=== PATIENT | female | born 1965 | race Caucasian/White ===

== ENCOUNTER 2019-03-14 13:47 | Observation (INO) | payer MEDICAID, SELFPAY ==
[2019-01-10 10:58] VITALS: BMI 30.4
--- NOTE | 2019-03-13 23:49 | PCM.HP.BLA ---
History and Physical Date of Admission: 03/14/19 HISTORY OF PRESENT ILLNESS 53 year old woman presents for evaluation for hidradenitis. She states she mostly gets flare ups in her bilateral inguinal areas, recently worse on the right. She has had infected areas in her abdominal wall area as well as her left lateral cheek by cervicomandibular angle. When she gets a flare up, she develops increasing redness and pain and swelling and occasional drainage. At present she denies fever. She denies trauma. She presents at this time for further evaluation and treatment. PAST MEDICAL HISTORY Anemia Anxiety and depression Arthritis Back problem Breast lump in female Carpal tunnel syndrome Cataracts, bilateral Frequent headaches GERD (gastroesophageal reflux disease) Gallstones Hearing problem Heart disease High cholesterol Hypoglycemia IBS (irritable bowel syndrome) Neuropathy Osteoarthritis Pancreatitis Polycystic ovary High blood pressure PAST SURGICAL HISTORY Gastric bypass status for obesity cataract removal with insertion of prosthetic lens back surgery delivery laparoscopic cholecystectomy neck surgery shoulder surgery ALLERGIES duloxetine [From Cymbalta] Iodinated Contrast Media pregabalin [From Lyrica] MEDICATIONS alprazolam atorvastatin biotin bupropion HCl calcium carbonate cholecalciferol (vitamin D3) desvenlafaxine ER dexlansoprazole diclofenac 1 % topical gel doxycycline monohydrate hydrocodone prazosin quetiapine ranitidine tizanidine vitamin B complex FAMILY HISTORY Son - Alcoholism, Psychiatric care Mother - Anemia, Thyroid disorder, Suicide attempt, Anxiety, Arthritis, Cancer, Depression, Hypertension, High cholesterol, Skin cancer (melanoma), CVA (cerebral vascular accident) Sister - defect, Cancer, Hormone Problems, Kidney disease, Skin cancer (melanoma), Thyroid disorder Father - Cancer, Colon cancer SOCIAL HISTORY Smoking Status: Current every day smoker counseling given: provider counseling, counseling >10 minutes alcohol intake: never substance use type: does not use REVIEW OF SYSTEMS General - Denies fever and weight loss. Has fatigue. Eyes - Has cataracts. Denies glaucoma. ENT - Denies nasal congestion and sore throat. Endocrine - Denies excessive thirst and urination. Has heat and cold intolerance. Skin - Denies skin cancer. Has bilateral inguinal hidradenitis, worse on the right. Has cystic lesion left lateral cheek by cervicomandibular angle. Musculoskeletal - Has joint pain, joint stiffness, weakness of muscles and joints, back pain, and arthritis. Neuro - Has headaches and lightheadedness. Cardiovascular - Denies chest pain and shortness of breath with exertion. Has fatigue and lightheadedness. Psych - Denies anxiety. Has depression. Respiratory - Denies chronic cough and shortness of breath. Patient is a smoker. Has sleep apnea. Gastrointestinal - Denies nausea, vomiting, diarrhea, and constipation. Hematologic - Denies abnormal bruising and bleeding. Genitourinary - Denies hematuria and urinary frequency. Has incontinence. PHYSICAL EXAMINATION General - Alert and Oriented. HEENT - PERRL. EOMI. Throat is clear. On the left lateral cheek by cervicomandibular angle is a cystic lesion that measures 1 cm. Mobile. No ulceration. Lesion is nontender. No evidence of infection at present. Neck - Supple and nontender. No cervical adenopathy. No suspicious lesions noted. Lungs - Clear to auscultation. Heart - Regular rate and rhythm. Abdomen - Soft and nondistended. Has hidradenitis in bilateral inguinal areas. On the right is an area of induration and tenderness to palpation. No purulent drainage. No fluctuance. Extends from inguinal area into the vulva involving the genitocrural area up to the labia. Measures 10 cm. On the left is an area of induration and tenderness to palpation. No purulent drainage. No fluctuance. Extends from inguinal area into the vulva involving the genitocrural area up to the labia. Extremities - FROM. No axillary adenopathy. Radial pulses are palpable. No inguinal adenopathy. Dorsalis pedis pulses are palpable. Neuro - CN II-XII grossly intact. Psych - Normal mood and affect. ASSESSMENT 1. Bilateral inguinal hidradenitis, worse on the right. 2. Bilateral vulval hidradenitis involving genitocrural area up to the labia, worse on the right. 3. Smoker. 4. 1 cm soft tissue mass left lateral cheek by cervicomandibular angle. PLAN Recommend excision of her hidradenitis in her bilateral inguinal areas with extension into the vulva with a partial vulvectomy. Will do the right side first. Will send tissue to Pathology for analysis to rule out carcinoma and to Microbiology for culture. A positive culture will necessitate antibiotic therapy. Will leave the wound open initially and proceed with wound care with the VAC or daily Silver dressings. After healing has occurred, can then address the left side. At the time of surgery, she will be discharged home with a temporary gomez catheter to minimize urinary contamination during the healing process. Post discharge can followup at the Wound Center. If there is a plateau in the healing process, can proceed with delayed closure with skin grafting. Surgery will be done under general anesthesia with a surgical observation overnight stay in the hospital. After the inguinal and vulval hidradenitis have been taken care of, can then address the cystic lesion on her left lateral cheek by cervicomandibular angle. If stable, can be excised. If infected, would need to proceed with an I&D procedure and leave open and proceed with Silver dressing changes daily. After infection is controlled and inflammation has subsided, can then proceed with delayed secondary wound closure with possible skin flap. Surgery for the left lateral cheek can be done under local anesthesia and IV sedation on an outpatient basis. Patient was informed of the risks and complications of the procedure including alternatives to surgery. These were discussed with the patient personally. Patient voices understanding and wishes to proceed. Some of the risks and complications were included in a form from the [employer]. Encouraged patient to stop smoking as it may have deleterious effects on wound healing. Before surgery, will place her on Doxycycline for flare ups which she can also use postoperatively as well.
[2019-03-14] VITALS (14 sets, daily range): BP systolic 100–124; BP diastolic 54–77; PULSE 49–95; RESP 16–18; TEMP 36.1–37; O2SAT 94–100; BMI 30.7; BMI 32.7
[2019-03-14 11:21] LABS: Bedside Glucose 85 mg/dL (70-110)
--- NOTE | 2019-03-14 13:10 | HID_PTH ---
PATIENT: ERNIE CASTANO LOC: MS3 U#:[id number] AGE/SX: 53/F ROOM: MS313 RE03/14/[address]: Dr. César Franco MD : 1965 BED: 1 DIS: 03/15/2019 SPEC #: [id number] RECD: 03/14/19 14:27 STATUS: THAIS REKatty #: [id number] MONALISA: 03/14/19 13:[address]: César Franco DEPT: SURGICAL PATHOLOGY RECD BY: Ramon Chen ENTERED: 03/14/19 14:42 SP TYPE: Hidradenit OTHR DR: Dr. Anthony Pollard MD Tissues: Inguinal region, NOS Procedures: Special Stain Group I Surgery Specimen Level III AFB Stain (control) GMS Stain (control) HEADER OPERATION: Surgical prep right inguinal and vulval area, excision hidradenitis PRE-OP DIAGNOSIS: Bilateral inguinal hidradenitis, worse on right; bilateral vulval hidradenitis involving genitocrural area up to labia, worse on right TISSUE SUBMITTED: Right inguinal and vulval hidradenitis MICROSCOPIC DIAGNOSIS Right inguinal and vulval hidradenitis: Pieces of skin with underlying tissue with acute and chronic inflammation and abscess formation. Special stains for acid fast bacilli and fungi are negative for organisms; matched controls are appropriate. DANILO:shania 03/15/19 MICROSCOPIC DESCRIPTION Slides are reviewed. GROSS DESCRIPTION Received in fixative is one container labeled with the patient's name and designated right inguinal and vulval hidradenitis. The specimen consists of an irregular piece of reyna-white skin with underlying tissue measuring 8 x 3 cm and up to 1 cm in thickness. No skin lesion is identified. Sections do not reveal any mass lesion. [employer] Mechanic sections are submitted in two cassettes. / DANILO:shania 03/14/19 TC:2 CPT: 67277, 51655 x2
--- NOTE | 2019-03-14 13:38 | OP.PCM_ITS ---
Report of Operation Date of Procedure: 03/14/19 Pre-Operative Diagnosis: 1. Bilateral inguinal hidradenitis, worse on the right. 2. Bilateral vulval hidradenitis involving genitocrural area up to the labia, worse on the right. 3. Smoker. Post-Operative Diagnosis: Same. Surgery/Procedure Performed:: 1. Surgical preparation right inguinal area with excision hidradenitis (50 cm2). 2. Excision right vulval hidradenitis involving genitocrural area with partial vulvectomy including deep subcutaneous tissue (50 cm2). Description of Surgical Findings:: 53 year old woman presents for evaluation for hidradenitis. She states she mostly gets flare ups in her bilateral inguinal areas, recently worse on the right. She has had infected areas in her abdominal wall area as well as her left lateral cheek by cervicomandibular angle. When she gets a flare up, she develops increasing redness and pain and swelling and occasional drainage. At present she denies fever. She denies trauma. She was started on Doxycycline. Patient was informed of the risks and complications of the procedure including alternatives to surgery. These were discussed with the patient personally. Patient voices understanding and wishes to proceed. Some of the risks and complications were included in a form from the [employer]. Encouraged patient to stop smoking as it may have deleterious effects on wound healing. Size of defect right inguinal and vulval area involving genitocrural area - 10 x 5 x 2 cm. architectural administrative assistant: None Type of Anesthesia:: General Specimen's removed: Right inguinal and vulval hidradenitis tissue to Pathology and MIcrobiology. Drains: None. Estimated Blood Loss (mL): 25 ml. Description of Procedure: Patient was taken to OR in supine position and was placed under general anesthesia. Her legs were frog legged and the right inguinal and vulval areas were prepped and draped in the usual fashion. SCD's were placed for DVT prophylaxis. Perioperative antibiotics were given intravenously. Using xylocaine with epinephrine, the areas of hidradenitis involving the right inguinal area and right vulval area were infiltrated. After waiting 5 minutes for the anesthetic to take effect, I excised the hidradenitis in the right inguinal area down through the subcutaneous tissue until fascia was seen. The hidradenitis extended into the vulval area involving the genitocrural area. I then proceeded with excision hidradenitis right vulval area involving the genitocrural area. The labia was not involved at this time. Her preoperative antibiotics with Doxycycline was helpful. I excised the hidradenitis in the right vulval area down through the deep subcutaneous tissue until fascia was seen making it a partial vulvectomy. Tissue was sent to Pathology for analysis to rule out carcinoma and to Microbiology for culture. A positive culture will necessitate antibiotic therapy. Hemostasis was obtained with electrocautery. The wound was irrigated with saline. The size of the defect which combined both areas of hidradenitis involving the right inguinal area and right vulval area was 10 x 5 x 2 cm or 50 cm2. I dressed the wound with Mepitel nonadherent dressing followed by Kerlix gauze and Betadine followed by dry Kerlix gauze and an ABD pad. Before leaving the OR, a gomez catheter was placed and will stay in after discharge for a couple of weeks. Patient tolerated the procedure well and was sent to PACU in satisfactory condition. Patient will be sent upstairs for continued postop care. Will attempt VAC placement tomorrow. If there are difficulties with maintaining a seal secondary to its location, will change to a Silver dressing change daily. She can be discharged home when she is tolerating po analgesia and If there is a plateau in the healing process, will consider delayed closure with skin grafting. Grafts/Implants Used: None. - Complications None. - Admit VTE Documentation VTE Present on Admission: No VTE Mechan Device Prophylaxis: SCD's VTE Pharm Prophylaxis ordered?: No Code Visit Surgery Charges CPT - 35862 ICD-10 - L73.2, S31.103A, F17.200 83927 L73.2, S31.40xA, F17.200
[2019-03-14] MEDS: oxyCODONE 5 MG Tablet 10 MG PO (15:17)
[2019-03-14] MEDS: Lactated Ringers 1,000 ML 60 ML IV (16:12)
[2019-03-14] MEDS: HYDROmorphone 1 MG/ML Syringe IV (19:00)
[2019-03-14] MEDS: Ondansetron 4 MG/2 ML Vial IV (19:00)
[2019-03-14] MEDS: buPROPion (SR) 100 MG TABLET.SA PO (22:01)
[2019-03-14] MEDS: Venlafaxine XR 75 MG Capsule PO (22:01)
[2019-03-14] MEDS: Doxazosin 1 MG Tablet PO (22:02)
[2019-03-14] MEDS: Pantoprazole Sodium 40 MG Tablet PO (22:02)
[2019-03-14] MEDS: Famotidine 20 MG Tablet PO (22:02)
--- NOTE | 2019-03-14 22:07 | NURSING ---
PT reported taking home medications to this RN. Medications taken reviewed with patient and not administered this HS. Home medications locked in patient room drawer.
[2019-03-14] MEDS: ALPRAZolam 0.5 MG Tablet PO (22:09)
[2019-03-15] MEDS: oxyCODONE 5 MG Tablet 10 MG PO ×2 (04:04→11:01)
[2019-03-15 04:08] VITALS: BP 94/53; PULSE 58; RESP 16; TEMP 36.6; O2SAT 97
[2019-03-15 06:19] LABS: Hematocrit 38.4 % (37-47); Hemoglobin 12.4 g/dL (12.0-15.0); Mean Corp Hgb Conc 32.3 g/dL (32-36); Mean Corpuscular Volume 89.7 fL (81-99); Mean Platelet Vol. 10.2 fl (6.2-12.0); Platelet Count 200 K/mm3 (150-450); RBC Distribution Width CV 12.4 % (11.6-14.6); RBC Distribution Width SD 40.8 fl (35.1-43.9); Red Blood Count 4.28 M/mm3 (4.2-5.4); White Blood Count 9.6 K/mm3 (4.4-11.0)
[2019-03-15 06:34] LABS: Erythrocyte Sedimentation Rate 9 mm/hr (0-30)
[2019-03-15 06:48] LABS: Anion Gap 6 (5-15); BUN 10 mg/dL (7-18); BUN/Creat Ratio 12.5 RATIO (10-20); CRP < 2.90 mg/L (0.0-3.0); Calcium,Total 8.8 mg/dL (8.5-10.1); Chloride 110 mmol/L (98-107); EST Glomerular Filtration Rate 79 mL/min (>60); Est Glom Filt Rate - Afr Amer 96 mL/min (>60); Glucose 109 mg/dL (74-106); Potassium 4.3 mmol/L (3.5-5.1); Sodium Level 141 mmol/L (136-145)
[2019-03-15] MEDS: HYDROmorphone 1 MG/ML Syringe IV (07:48)
[2019-03-15] MEDS: Famotidine 20 MG Tablet PO (07:48)
[2019-03-15 07:55] VITALS: BP 123/65; PULSE 52; RESP 16; TEMP 36.7; O2SAT 97
--- NOTE | 2019-03-15 09:02 | NURSING ---
wound photo: right inguinal/groin area
[2019-03-15] MEDS: Lactated Ringers 1,000 ML 60 ML IV (09:11)
--- NOTE | 2019-03-15 10:45 | CASEMGMT ---
AURORA ALONSO updated that patient will need HHC at discharge for wound vac changes. AURORA ALONSO in to discuss HHC options with patient. List provided to patient of in-network HHC. Patient would like [facility]. AURORA ALONSO sent referral to [facility] and awaiting call back with acceptance. Patient denied further question or concerns at this time.
[2019-03-15 11:03] VITALS: BP 118/55; PULSE 48; RESP 16; TEMP 36.5; O2SAT 98
--- NOTE | 2019-03-15 11:42 | NURSING ---
Home VAC approved. just awaiting discharge orders per Dr Franco. will switch patient over to home VAC.
--- NOTE | 2019-03-15 12:44 | PN.SURG_ITS ---
Subjective: Postop #1 Patient is resting comfortably. VAC applied today without difficulty. - Physical Exam Vitals/I&O's: Vital Signs Temp Pulse Resp BP Pulse Ox 97.7 F L 48 L 16 118/55 L 98 03/15/19 11:03 03/15/19 11:03 03/15/19 11:03 03/15/19 11:03 03/15/19 11:03 Oxygen Delivery Method Room Air Weight: 196 lb 13.965 oz Body Mass Index (BMI) 32.7 Intake and Output for Last 24 Hours 03/13/19 03/14/19 03/15/19 23:59 23:59 23:59 Intake Total 858 / 858 971 / 971 Output Total 600 / 600 2375 / 2375 Balance 258 / 258 -1404 / -1404 General: Alert, Oriented x3 HEENT: PERRLA, EOMI Oral: Moist Mucosa Neck: Supple Abdomen: Soft, Non-Distended Skin: Ulcer/ Wound - open surgical hidradenitis wound right inguinal and vulval areas clean. No active bleeding seen. VAC applied today. Neurological: Cranial nerves II-XII grossly intact Psych/Mental Status: Normal Affect, Appropriate Microbiology Past 72 Hours 03/14/19 13:55 Biopsy - Tissue Gram Stain - Final 03/14/19 13:55 Biopsy - Tissue Wound Culture - Preliminary Gram positive organism Laboratory Results 03/15/19 05:50: WBC 9.6, RBC 4.28, Hgb 12.4, Hct 38.4, MCV 89.7, MCH 29.0, MCHC 32.3, RDW Std Deviation 40.8, RDW Coeff of Librado 12.4, Plt Count 200, MPV 10.2, ESR 9 03/15/19 05:50: Sodium 141, Potassium 4.3, Chloride 110 H, Carbon Dioxide 25.0, Anion Gap 6, BUN 10, Creatinine 0.80, Estim Creat Clear Calc 71.50, Est GFR (MDRD) Af Amer 96, Est GFR (MDRD) Non-Af 79, BUN/Creatinine Ratio 12.5, Glucose 109 H, Calcium 8.8, C-React Prot Ext Range < 2.90, Prealbumin 16.0 L Current Medications Alprazolam (Xanax) 0.5 mg PO BID PRN PRN Reason: ANXIETY Last Admin: 03/14/19 22:09 Dose: 0.5 mg Documented by: Atorvastatin Calcium (Lipitor) 10 mg PO QHS [facility] Last Admin: 03/14/19 22:10 Dose: Not Given Documented by: Bupropion HCl (Wellbutrin Sr (100mg Tablets)) 100 mg PO QHS [facility] Last Admin: 03/14/19 22:01 Dose: 100 mg Documented by: Cholecalciferol (Vitamin D) 5,000 unit PO DAILY [facility] Last Admin: 03/15/19 07:48 Dose: 5,000 unit Documented by: Doxazosin Mesylate (Cardura) 1 mg PO QHS [facility] Last Admin: 03/14/19 22:02 Dose: 1 mg Documented by: Famotidine (Pepcid) 20 mg PO BID [facility] Last Admin: 03/15/19 07:48 Dose: 20 mg Documented by: Hydromorphone HCl (Dilaudid Inj) 1 mg IV Q4H PRN PRN PRN Reason: Pain Score 6-10/10 Last Admin: 03/15/19 07:48 Dose: 1 mg Documented by: Clindamycin Phosphate 600 mg/ (Dextrose) 54 mls @ 100 mls/hr IV Q8 [facility] Last Infusion: 03/15/19 06:41 Dose: Infused Documented by: Lactated Ringer's () 1,000 mls @ 60 mls/hr IV .[id number] [facility] Last Admin: 03/15/19 09:11 Dose: 60 mls/hr Documented by: Non-Formulary Medication (Diclofenac Sodium [Voltaren]) 2 g TOPICAL .PRN PRN PRN Reason: Pain or Fever Nutritional Formula (Damien - Warden Flavor) 1 packet PO BIDCM [facility] Last Admin: 03/15/19 07:47 Dose: 1 packet Documented by: Ondansetron HCl (Zofran) 4 mg IV Q6H PRN PRN PRN Reason: NAUSEA Last Admin: 03/14/19 19:00 Dose: 4 mg Documented by: Oxycodone HCl (Oxyir) 10 mg PO Q4H PRN PRN PRN Reason: Pain Score 6-10/10 Last Admin: 03/15/19 11:01 Dose: 10 mg Documented by: Pantoprazole Sodium (Protonix) 40 mg PO QHS [facility] Last Admin: 03/14/19 22:02 Dose: 40 mg Documented by: Promethazine HCl (Phenergan Tablet) 25 mg PO Q4H PRN PRN PRN Reason: NAUSEA/VOMITING Tizanidine HCl (Zanaflex) 4 mg PO TID PRN PRN PRN Reason: Muscle Relaxation Venlafaxine HCl (Effexor Xr) 75 mg PO QHS [facility] Last Admin: 03/14/19 22:01 Dose: 75 mg Documented by: Medical Necessity - Tobacco Use Smoking Status: Current every day smoker Tobacco Use: Cigarettes Assessment/Plan All Active Problems (Last Updated 01/10/19 @ 10:44 by Santa Baker) Open wound of vulva (Acute) Non-healing open wound of right groin (Acute) 1. Bilateral inguinal hidradenitis, worse on the right. 2. Bilateral vulval hidradenitis involving genitocrural area up to the labia, worse on the right. 3. Smoker. 4. s/p surgical preparation right inguinal area with excision hidradenitis (50 cm2) and excision right vulval hidradenitis involving genitocrural area with partial vulvectomy including deep subcutaneous tissue (50 cm2). 5. Open surgical hidradenitis wound right inguinal area. 6. Open surgical hidradenitis wound right vulva involving genitocrural area. Patient is resting comfortably. Tolerating po analgesia. VAC applied today without difficulty. VAC has been approved. To be changed by Home Health three times per week at 150 mmHg continuous suction. Prealbumin was 16.0. Encourage nutritional supplementation with protein to help the healing process. Operative culture shows Gram positive organism thus far. Will send home on Doxycycline. Discharge home today. Wrote script for Doxycycline for perioperative treatment and for future flare ups of hidradenitis. Wrote script for OxyIR for pain (40 tabs). Wrote scripts for Phenergan for nausea (30 tabs) and a refill and for Colace for constipation (60 tabs). Followup Wound Center 2 weeks.
--- NOTE | 2019-03-15 12:52 | DCINST_ITS ---
You will use the following diet at home:: No restrictions, Other - encourage nutritional supplementation with protein to help the heailng process. Discharge Activity: May not drive while taking narcotic pain medications., May Shower - on the days the vac is changed. May shower in (days): 2 - may shower on the days the vac is changed. May resume sexual activity in: No Restrictions Weight Bearing Status: Weight bearing as tolerated Call your doctor if your incision/area has: Continuous Slow Oozing, Sudden Increased Bleeding, Increased Pain/ Swelling, Increased Redness, Foul Smelling Discharge, Swelling at the incision site Call your doctor if you observe: Fever of 101 or Higher, Coldness, Increased Pain, Shortness of breath, Chest pain, Calf discomfort, Uncontrolled pain Suture Line Care: - - vac changes three times per week at 150 mmHg continuous suction. Change Dressing in (Days):: 2 - vac changes three times per week. Cleanse incision/area with: Soap & Water - may cleanse the wound with soap and water on the days the vac is changed., - - may shower on the days the vac is changed. Additional Dressing/Incision Instructions:: Home Health to assist with vac changes to right inguinal and vulval areas at 150 mmHg continuous suction three times per week. Cleanse the wound with soap and water on the days the vac is changed. Additional Instructions: Patient will check with her Pain Management Physician regarding the pain script. Allergies/Adverse Reactions: Allergies duloxetine [From Cymbalta] Allergy (Verified 03/14/19 11:10) ALLERGY Iodinated Contrast Media Allergy (Verified 03/14/19 11:10) ALLERGY pregabalin [From Lyrica] Allergy (Verified 03/14/19 11:10) ALLERGY Medications to take at Discharge alprazolam 0.5 mg tablet 0.5 mg PO BID PRN 01/10/19 atorvastatin 10 mg tablet 10 mg PO QHS 01/10/19 biotin 10,000 mcg capsule 10,000 mcg SL DAILY cap 01/10/19 bupropion HCl 100 mg tablet 100 mg PO QHS tab 01/10/19 calcium carbonate 1,000 mg-magnesium hydroxide 200 mg chewable tablet 3,000 tab PO DAILY tab 01/10/19 cholecalciferol (vitamin D3) 5,000 unit capsule 5,000 unit PO DAILY 01/10/19 desvenlafaxine ER 100 mg tablet,extended release 24 hour 100 mg PO QHS 01/10/19 dexlansoprazole 60 mg capsule,biphase delayed release 60 mg PO QHS 01/10/19 diclofenac 1 % topical gel 2 g TOPICAL .PRN PRN g 01/10/19 hydrocodone 7.5 mg-acetaminophen 325 mg tablet 1 tab PO Q6H 01/10/19 prazosin 2 mg capsule 2 mg PO QHS 01/10/19 quetiapine 50 mg tablet 50 - 100 mg PO QHS 01/10/19 ranitidine 150 mg tablet 150 mg PO BID 01/10/19 tizanidine 4 mg capsule 4 mg PO TID PRN 01/10/19 Cyanocobalamin (Vitamin B-12) [Vitamin B12] 6,000 mcg SL DAILY 03/01/19 Docusate Sodium [Colace] 100 mg PO BID #60 cap 03/15/19 Doxycycline [Vibramycin] 100 mg PO BID #60 cap 03/15/19 Oxycodone [Oxyir] 5 mg PO Q4H PRN PRN 7 Days #40 tab 03/15/19 Pantoprazole Sodium [Protonix] 40 mg PO QHS tablet 03/15/19 Venlafaxine XR [Effexor Xr] 75 mg PO QHS capsule 03/15/19 proMETHazine tablet [Phenergan tablet] 25 mg PO 4X/DAY PRN PRN #30 tab 03/15/19 The following prescriptions were given: Docusate Sodium [Colace] 100 mg PO BID #60 cap Prescription Printed Oxycodone [Oxyir] 5 mg PO Q4H PRN PRN 7 Days #40 tab PRN Reason: Pain Score 6-10/10 Prescription Printed proMETHazine tablet [Phenergan tablet] 25 mg PO 4X/DAY PRN PRN #30 tab PRN Reason: NAUSEA/VOMITING Prescription Printed Doxycycline [Vibramycin] 100 mg PO BID #60 cap Prescription Printed Primary Care Physician: Anthony Pollard MD [Primary Care Provider] - Test Results: Test results from this visit will be discussed in further detail at your follow- up appointment, if applicable. Please Follow Up With: César Franco MD When: 2 weeks at wound center. Call [phone] for appt. Proposed Discharge Date: 03/15/19
--- NOTE | 2019-03-15 15:00 | CASEMGMT ---
AURORA ALONSO called Bette at [facility] and confirmed acceptance. [facility] is able to accept the patient with start of care for Wednesday with next vac change. AURORA ALONSO updated the patient. Patient had no questions at this time. Discharge paperwork faxed to [facility].
== END 2019-03-15 14:15 | disposition home or self-care (01) ==
LOC: MS3 17:57
PROVIDERS: Admitting Provider Surgery; Family Provider Family Medicine; PCP Family Medicine; Referring Provider Surgery; Visit Provider Surgery
PROC: (CPT 11462; principal; 2019-03-14 12:55)
DX: L73.2 Hidradenitis suppurativa (principal); M19.90 Unspecified osteoarthritis, unspecified site; F41.9 Anxiety disorder, unspecified; F32.9 Major depressive disorder, single episode, unspecified; K21.9 Gastro-esophageal reflux disease without esophagitis; I51.9 Heart disease, unspecified; E78.00 Pure hypercholesterolemia, unspecified; R22.0 Localized swelling, mass and lump, head; K58.9 Irritable bowel syndrome, unspecified; Z98.84 Bariatric surgery status; Z79.899 Other long term (current) drug therapy; F17.210 Nicotine dependence, cigarettes, uncomplicated; G47.30 Sleep apnea, unspecified; I10 Essential (primary) hypertension
CPT/HCPCS: 11462; 56630; 36415; 80048; 82962; 84134; 85027; 85652; 86140; 87070; 87075; 87076; 87077; 87102; 87186; 87205; 87206; 88304; 88312; 96361; 96365; 96366; 96375; 96376; 99218; 99406; J7120; G0378; G0379; J2405

== ENCOUNTER 2019-04-17 09:45 | Outpatient (RCR) | payer MEDICAID, SELFPAY ==
[2019-03-14 15:47] VITALS: BMI 32.7
[2019-03-27 10:33] VITALS: BP 121/73; PULSE 64; RESP 18; TEMP 36.5; BMI 30.3
--- NOTE | 2019-03-27 11:47 | PCM.WC.HP ---
(1) Open wound of vulva Status: Acute Code(s): S31.40XA - Unspecified open wound of vagina and vulva, initial encounter Comment: right vulva involving genitocrural area (2) Non-healing open wound of right groin Status: Acute Code(s): S31.103A - Unspecified open wound of abdominal wall, right lower quadrant without penetration into peritoneal cavity, initial encounter (3) Smoker Status: Chronic Code(s): F17.200 - Nicotine dependence, unspecified, uncomplicated (4) Hidradenitis Status: Chronic Code(s): L73.2 - Hidradenitis suppurativa Comment: bilateral inguinal hidradenitis with extension into vulva from genitocrural area up to labia (5) Vulval hidradenitis suppurativa Status: Chronic Code(s): L73.2 - Hidradenitis suppurativa Comment: from genitocrural area up to labia History of Present Illness Date of Service: 03/27/19 Chief Complaint: Surgical wound of right inguinal area and right vulval hidradentitis History of Wound: On 03/14/19 patient under went 1. Surgical preparation right inguinal area with excision hidradenitis (50 cm2). 2. Excision right vulval hidradenitis involving genitocrural area partial vulvectomy including deep subcutaneous tissue (50 cm2). She was discharged with a wound VAC and Gomez catheter. Surgical cultures were positive for Staphylococcus lugdunensis, Staphylococcus epidermidis, and Propionibacterium granulosum. She was treated with Levaquin and Flagyl. Prealbumin 16 from 03/15/19. She states her appetite is ok. Past Medical History Past Medical History: Chronic Problems (Last Updated 01/10/19 @ 10:44 by Santa Baker) Cheek mass (Chronic) 1 cm soft tissue mass left lateral cheek by cervicomandibular angle Smoker (Chronic) Hidradenitis (Chronic) bilateral inguinal hidradenitis with extension into vulva from genitocrural area up to labia Vulval hidradenitis suppurativa (Chronic) from genitocrural area up to labia Allergies/Adverse Reactions: Allergies duloxetine [From Cymbalta] Allergy (Verified 03/14/19 11:10) ALLERGY Iodinated Contrast Media Allergy (Verified 03/14/19 11:10) ALLERGY pregabalin [From Lyrica] Allergy (Verified 03/14/19 11:10) ALLERGY Home Medications: Ambulatory Orders Medication Instructions Recorded alprazolam 0.5 mg tablet 0.5 mg PO BID PRN 01/10/19 atorvastatin 10 mg tablet 10 mg PO QHS 01/10/19 biotin 10,000 mcg capsule 10,000 mcg SL DAILY cap 01/10/19 bupropion HCl 100 mg tablet 100 mg PO QHS tab 01/10/19 calcium carbonate 1,000 3,000 tab PO DAILY tab 01/10/19 mg-magnesium hydroxide 200 mg chewable tablet cholecalciferol (vitamin D3) 5,000 5,000 unit PO DAILY 01/10/19 unit capsule desvenlafaxine ER 100 mg 100 mg PO QHS 01/10/19 tablet,extended release 24 hour dexlansoprazole 60 mg 60 mg PO QHS 01/10/19 capsule,biphase delayed release diclofenac 1 % topical gel 2 g TOPICAL .PRN PRN g 01/10/19 hydrocodone 7.5 mg-acetaminophen 1 tab PO Q6H 01/10/19 325 mg tablet prazosin 2 mg capsule 2 mg PO QHS 01/10/19 quetiapine 50 mg tablet 50 - 100 mg PO QHS 01/10/19 ranitidine 150 mg tablet 150 mg PO BID 01/10/19 tizanidine 4 mg capsule 4 mg PO TID PRN 01/10/19 Cyanocobalamin (Vitamin B-12) 6,000 mcg SL DAILY 03/01/19 [Vitamin B12] Docusate Sodium [Colace] 100 mg PO BID #60 cap 03/15/19 Doxycycline [Vibramycin] 100 mg PO BID #60 cap 03/15/19 Pantoprazole Sodium [Protonix] 40 mg PO QHS tab 03/15/19 Venlafaxine XR [Effexor Xr] 75 mg PO QHS cap 03/15/19 proMETHazine tablet [Phenergan 25 mg PO 4X/DAY PRN PRN #30 tab 03/15/19 tablet] levofloxacin 500 mg tablet 500 mg PO DAILY #14 tab 03/31/19 Smoking Status: Current every day smoker Review of Systems Constitutional: Denies: Chills, Fever, Weight Change Eyes: Denies: Pain, Vision Change HEENT: Denies: Difficulty Hearing, Difficulty Swallowing, Sinus Congestion Cardiovascular: Denies: Chest Pain, Palpitations Respiratory: Denies: Cough, Shortness of Breath Gastrointestinal: Denies: Diarrhea, Nausea, Vomiting Musculoskeletal: Denies: Back Pain Skin: Reports: Wounds - Right inguinal/vulva wound Neurological: Denies: Balance problems, Blurred vision Endocrine: Denies: Heat/ Cold Intolerance, Polydipsia, Polyuria Hematologic/ Lymphatic: Denies: Easy Bruising, Easy Bleeding - Physical Exam Vital Signs Temp Pulse Resp BP 97.7 F L 64 18 121/73 H 03/27/19 10:33 03/27/19 10:33 03/27/19 10:33 03/27/19 10:33 General: Alert, Oriented x3, Cooperative HEENT: Atraumatic Oral: Moist Mucosa Lungs: Clear to auscultation, Normal air movement Cardiovascular: Regular rate, Regular Rhythm Abdomen: Bowel Sounds Present, Soft Extremities: Capillary Refill Less than 3 Seconds Skin: Ulcer/ Wound - right inguinal/vulva area Wound Measurements and Assessment WC - Nurse 1 - General Ulcer Measurement Start: 03/27/19 10:33 Freq: Status: Active Protocol: Activity Type Activity Date Activity User E-Sign Co-Sign Detail Recorded Client Recorded Date Recorded By Document 03/27/19 10:33 MW [id number] 03/27/19 10:49 MW 03/27/19 10:33 Wound Center Nurse 1 [Ulcer Assessment] #1 L GROIN -Combined with other wound No -Current Size (cm) - Length 10 -Current Size (cm) - Width 2 -Current Size (cm) - Depth 0.5 -Total Square Cm 20 -Date of Last Picture (Recall this 03/27/19 field) -Photo Taken Yes -Epithelialization None Present -Tunneling No -Undermining/Tunneling No -Circular Undermining No -Exudate Amt Large -Exudate Type Serosanguineous -Wound Margin Distinct, Outline Attached -Granulation Amt Large (67-100%) -Granulation Quality Red -Slough/Fibrin Yes -Necrosis Amt Small (1-33%) -Necrotic Tissue Type Adherent Slough -Texture (Gladys-wound Skin Appearance) Assessed -Moisture (Gladys-wound Skin Appearance Assessed ) -Color (Gladys-wound Skin Appearance) Assessed -Temperature (Gladys-wound Skin No Abnormality Appearance) (Pt Warm) -Tenderness on Palpation (Gladys-wound Yes Skin Appearance) -Ulcer Cleansing Rinsed/ Irrigated with Saline -Foul Odor after Cleansing No -Anesthetic Used 4% Lidocaine Solution SHOBHA - Nurse 2 - General Ulcer CM Notes Start: 03/27/19 10:33 Freq: Status: Active Protocol: Activity Type Activity Date Activity User E-Sign Co-Sign Detail Recorded Client Recorded Date Recorded By Document 03/27/19 11:40 LUIS DANIEL [id number] 03/27/19 11:43 LUIS DANEIL 03/27/19 11:40 Wound Center Nurse 2 [Procedure/Treatment] -Time 11:40 -Correct Patient Yes -Correct Side, Site, Position Yes -Correct Procedure Yes -Procedure Performed Yes -Type of Procedure Debridement -Clinical Debridement Subcutaneous -Post Debridement Size (cm) - Length 10.4 -Post Debridement Size (cm) - Width 2.0 -Post Debridement Size (cm) - Depth 1.0 -Total Square Cm 20.80 -Wound/Ulcer Outcome Not Healed -Ulcer Cleansing Rinsed/ Irrigated with Saline -Foul Odor after Cleansing No -Bioengineered Tissue No -Bleeding Controlled with Pressure -Offloading No -Treatment Response Procedure Tolerated Well [See Physician Procedure note for Specifics] Pain Scale: 0-10 Numeric [Pain] -Is Patient Pain Free? Yes Musculoskeletal: No Muscle Wasting Neurological: Neuro grossly intact Psych/Mental Status: Normal Affect, Appropriate Debridement Note Post-Debridement Measurements/Treatment - Nurse 2 - General Ulcer CM Notes Start: 03/27/19 10:33 Freq: Status: Active Protocol: Activity Type Activity Date Activity User E-Sign Co-Sign Detail Recorded Client Recorded Date Recorded By Document 03/27/19 11:40 LUIS DANIEL [id number] 03/27/19 11:43 03/27/19 11:40 Wound Center Nurse 2 #1 L GROIN -Time 11:40 -Correct Patient Yes -Correct Side, Site, Position Yes -Correct Procedure Yes -Procedure Performed Yes -Type of Procedure Debridement -Clinical Debridement Subcutaneous -Post Debridement Size (cm) - Length 10.4 -Post Debridement Size (cm) - Width 2.0 -Post Debridement Size (cm) - Depth 1.0 -Total Square Cm 20.80 -Wound/Ulcer Outcome Not Healed -Ulcer Cleansing Rinsed/ Irrigated with Saline -Foul Odor after Cleansing No -Bioengineered Tissue No -Bleeding Controlled with Pressure -Offloading No -Treatment Response Procedure Tolerated Well Pain Scale: 0-10 Numeric Is Patient Pain Free? Yes Wound debrided: inguinal/vulva wound Laterality: Right Type of Debridement: Excisional debridement Anesthesia Used: 5% Lidocaine Gel Depth: Down to and including healthy tissue, in the subcutaneous layer Percentage of wound debrided: 100 Instrument Used: 5mm curette Tissue Removed: subcutaneous tissue and slough Severity: Fat Layer Exposed Amount of bleeding with debridement: Mild Bleeding Controlled with: Pressure, Compression and gauze Patient tolerated procedure well Assessment/Plan Assessment: 1. Open wound right vulva. 2. Non-healing opened wound right groin. 3. Hidradenitis. 4. Smoker Plan: Patient is having increased pain with the wound VAC this week, especially when the wound VAC dressing is removed. Will take a wound VAC holiday for one week. She will do daily silver dressing changes. She was instructed to wash the area with soap and water daily. Encourage increased protein intake due to Prealbumin is 16. Encouraged patient to stop smoking as it can impact wound healing. Will keep gomez in for another week. She continues to be on Levaquin and Flagyl. Follow up in one week. Code Visit [id number]
[2019-04-03 11:35] VITALS: BP 131/76; PULSE 67; RESP 18; TEMP 36.6; BMI 30.3
--- NOTE | 2019-04-03 15:04 | PN.PCM_ITS ---
(1) Open wound of vulva Status: Acute Code(s): S31.40XA - Unspecified open wound of vagina and vulva, initial encounter Comment: right vulva involving genitocrural area (2) Non-healing open wound of right groin Status: Acute Code(s): S31.103A - Unspecified open wound of abdominal wall, right lower quadrant without penetration into peritoneal cavity, initial encounter (3) Smoker Status: Chronic Code(s): F17.200 - Nicotine dependence, unspecified, uncomplicated (4) Hidradenitis Status: Chronic Code(s): L73.2 - Hidradenitis suppurativa Comment: bilateral inguinal hidradenitis with extension into vulva from genitocrural area up to labia (5) Vulval hidradenitis suppurativa Status: Chronic Code(s): L73.2 - Hidradenitis suppurativa Comment: from genitocrural area up to labia Type of Wound Date of Service: 04/03/19 Chief Complaint: Surgical wound of right inguinal area and right vulval hidrad entitis History of Wound: On 03/14/19 patient under went 1. Surgical preparation right inguinal area with excision hidradenitis (50 cm2). 2. Excision right vulval hidradenitis involving genitocrural area partial vulvectomy including deep subcutaneous tissue (50 cm2). She was discharged with a wound VAC and Gomez catheter. Surgical cultures were positive for Staphylococcus lugdunensis, Staphylococcus epidermidis, and Propionibacterium granulosum. She was treated with Levaquin and Flagyl. Prealbumin 16 from 03/15/19. Wound care: Wound VAC holiday last week with daily silver dressing changes. Will discontinue the wound VAC and continue the daily silver. Will discontinue the gomez. She states her appetite is ok. Progress of Wound: Improved. - Physical Exam Vital Signs Temp Pulse Resp BP 97.8 F 67 18 131/76 H 04/03/19 11:35 04/03/19 11:35 04/03/19 11:35 04/03/19 11:35 General: Alert, Oriented x3, Cooperative HEENT: Atraumatic Oral: Moist Mucosa Lungs: Normal air movement Cardiovascular: Regular rate Abdomen: Soft Extremities: No edema Skin: Ulcer/ Wound - right vulva wound Wound Measurements and Assessment WC - Nurse 1 - General Ulcer Measurement Start: 03/27/19 10:33 Freq: Status: Active Protocol: Activity Type Activity Date Activity User E-Sign Co-Sign Detail Recorded Client Recorded Date Recorded By Document 04/03/19 11:35 DL [id number] 04/03/19 11:42 DL 04/03/19 11:35 Wound Center Nurse 1 [Ulcer Assessment] #1 R GROIN -Combined with other wound No -Current Size (cm) - Length 9.5 -Current Size (cm) - Width 1.6 -Current Size (cm) - Depth 0.5 -Total Square Cm 15.20 -Photo Taken No -Epithelialization Small 1-33% -Tunneling No -Undermining/Tunneling No -Circular Undermining No -Exudate Amt Medium -Exudate Type Serosanguineous -Wound Margin Distinct, Outline Attached -Granulation Amt Large (67-100%) -Granulation Quality Red -Slough/Fibrin Yes -Necrosis Amt Small (1-33%) -Necrotic Tissue Type Adherent Slough -Structure Exposed N/A -Texture (Gladys-wound Skin Appearance) Assessed, Scarring -Moisture (Gladys-wound Skin Appearance No Abnormality, ) Assessed -Color (Gladys-wound Skin Appearance) No Abnormality, Assessed -Temperature (Gladys-wound Skin No Abnormality Appearance) (Pt Warm) -Tenderness on Palpation (Gladys-wound No Skin Appearance) -Ulcer Cleansing Rinsed/ Irrigated with Saline -Foul Odor after Cleansing No -Anesthetic Used 5% Lidocaine Gel [Edema Assessment] -Lower Limb Edema Present No WC - Nurse 2 - General Ulcer CM Notes Start: 03/27/19 10:33 Freq: Status: Active Protocol: Activity Type Activity Date Activity User E-Sign Co-Sign Detail Recorded Client Recorded Date Recorded By Document 04/03/19 12:19 LUIS DANIEL [id number] 04/03/19 12:22 LUIS DANIEL 04/03/19 12:19 Wound Center Nurse 2 [Procedure/Treatment] #1 R GROIN -Time 12:21 -Correct Patient Yes -Correct Side, Site, Position Yes -Correct Procedure Yes -Procedure Performed Yes -Type of Procedure Debridement -Clinical Debridement Subcutaneous -Post Debridement Size (cm) - Length 9.0 -Post Debridement Size (cm) - Width 1.5 -Post Debridement Size (cm) - Depth 1.0 -Total Square Cm 13.50 -Wound/Ulcer Outcome Not Healed -Ulcer Cleansing Rinsed/ Irrigated with Saline -Foul Odor after Cleansing No -Bioengineered Tissue No -Bleeding Controlled with Pressure -Offloading No -Treatment Response Procedure Tolerated Well [See Physician Procedure note for Specifics] Pain Scale: 0-10 Numeric [Pain] -Is Patient Pain Free? Yes Musculoskeletal: No Muscle Wasting Neurological: Neuro grossly intact Psych/Mental Status: Normal Affect, Appropriate Debridement Note Post-Debridement Measurements/Treatment WC - Nurse 2 - General Ulcer CM Notes Start: 03/27/19 10:33 Freq: Status: Active Protocol: Activity Type Activity Date Activity User E-Sign Co-Sign Detail Recorded Client Recorded Date Recorded By Document 03/27/19 11:40 [id number] 03/27/19 11:43 Document 04/03/19 12:19 [id number] 04/03/19 12:22 03/27/19 04/03/19 11:40 12:19 Wound Center Nurse 2 #1 R GROIN -Time 11:40 12:21 -Correct Patient Yes Yes -Correct Side, Site, Position Yes Yes -Correct Procedure Yes Yes -Procedure Performed Yes Yes -Type of Procedure Debridement Debridement -Clinical Debridement Subcutaneous Subcutaneous -Post Debridement Size (cm) - Length 10.4 9.0 -Post Debridement Size (cm) - Width 2.0 1.5 -Post Debridement Size (cm) - Depth 1.0 1.0 -Total Square Cm 20.80 13.50 -Wound/Ulcer Outcome Not Healed Not Healed -Ulcer Cleansing Rinsed/ Rinsed/ Irrigated with Irrigated with Saline Saline -Foul Odor after Cleansing No No -Bioengineered Tissue No No -Bleeding Controlled with Pressure Pressure -Offloading No No -Treatment Response Procedure Procedure Tolerated Well Tolerated Well Pain Scale: 0-10 Numeric Is Patient Pain Free? Yes Yes Wound debrided: Vulva wound Laterality: Right Type of Debridement: Excisional debridement Anesthesia Used: 5% Lidocaine Gel Depth: Down to and including healthy tissue, in the subcutaneous layer Percentage of wound debrided: 100 Instrument Used: 5mm curette Tissue Removed: Subcutaneous tissue and slough Severity: Fat Layer Exposed Amount of bleeding with debridement: Mild Bleeding Controlled with: Pressure, Compression and gauze Patient tolerated procedure well Assessment/Plan Assessment: 1. Open wound right vulva. 2. Non-healing opened wound right groin. 3. Hidradenitis. 4. Smoker Plan: We did a wound VAC holiday for 1 week. Patient states she is feeling much better without the wound VAC therefore we will discontinue it and continue daily silver dressing changes. She was instructed to wash the area with soap and water daily. We will also discontinue the Gomez. Patient feels that she would be able to keep her wound clean from urine upon voiding. Encourage increased protein intake due to Prealbumin is 16. Encouraged patient to stop smoking as it can impact wound healing. Surgical wound cultures positive for Staphylococcus lugdunensis, Staphylococcus epidermidis and Propionibacterium granulosum. She has completed Levaquin and Flagyl. Since her insurance will only pay for Levaquin 14 days out of every 26, will switch her antibiotic to Clindamycin TID. Follow up in one week. Code Visit [id number]: [id number] Shanna subq tissue 20 sq cm/<
[2019-04-10 14:16] VITALS: BP 112/70; PULSE 74; RESP 16; TEMP 36.4; BMI 30.3
--- NOTE | 2019-04-10 16:16 | PN.PCM_ITS ---
(1) Open wound of vulva Status: Acute Current Visit: Yes Code(s): S31.40XA - Unspecified open wound of vagina and vulva, initial encounter Comment: right vulva involving genitocrural area (2) Non-healing open wound of right groin Status: Acute Current Visit: Yes Code(s): S31.103A - Unspecified open wound of abdominal wall, right lower quadrant without penetration into peritoneal cavity, initial encounter (3) Smoker Status: Chronic Current Visit: Yes Code(s): F17.200 - Nicotine dependence, unspecified, uncomplicated (4) Hidradenitis Status: Chronic Current Visit: Yes Code(s): L73.2 - Hidradenitis suppurativa Comment: bilateral inguinal hidradenitis with extension into vulva from genitocrural area up to labia (5) Vulval hidradenitis suppurativa Status: Chronic Current Visit: Yes Code(s): L73.2 - Hidradenitis suppurativa Comment: from genitocrural area up to labia Type of Wound Date of Service: 04/10/19 Chief Complaint: Surgical wound of right inguinal area and right vulval hidradentitis History of Wound: On 03/14/19 patient under went 1. Surgical preparation right inguinal area with excision hidradenitis (50 cm2). 2. Excision right vulval hidradenitis involving genitocrural area partial vulvectomy including deep subcutaneous tissue (50 cm2). She was discharged with a wound VAC and Gomez catheter. Surgical cultures were positive for Staphylococcus lugdunensis, Staphylococcus epidermidis, and Propionibacterium granulosum. She was treated with Levaquin and Flagyl. Prealbumin 16 from 03/15/19. Wound care: Daily si lver dressing changes. The gomez is gone and she states that her urine stream goes towards the ulcer now. She is trying to use a cup to void in to prevent urine from going into the wound. She states her appetite is ok. Progress of Wound: Improved. - Physical Exam Vital Signs Temp Pulse Resp BP 97.5 F L 74 16 112/70 04/10/19 14:16 04/10/19 14:16 04/10/19 14:16 04/10/19 14:16 General: Alert, Oriented x3, Cooperative HEENT: Atraumatic Oral: Moist Mucosa Lungs: Normal air movement Cardiovascular: Regular rate Extremities: Capillary Refill Less than 3 Seconds Skin: Ulcer/ Wound - right vulva/labia ulcer Wound Measurements and Assessment WC - Nurse 1 - General Ulcer Measurement Start: 03/27/19 10:33 Freq: Status: Active Protocol: Activity Type Activity Date Activity User E-Sign Co-Sign Detail Recorded Client Recorded Date Recorded By Document 04/10/19 14:16 MW [id number] 04/10/19 14:17 MW 04/10/19 14:16 Wound Center Nurse 1 [Ulcer Assessment] #1 R GROIN -Combined with other wound No -Current Size (cm) - Length 7.0 -Current Size (cm) - Width 1.0 -Current Size (cm) - Depth 0.1 -Total Square Cm 7.00 -Photo Taken No -Epithelialization Small 1-33% -Tunneling No -Undermining/Tunneling No -Circular Undermining No -Exudate Amt Small -Exudate Type Serosanguineous -Wound Margin Distinct, Outline Attached -Granulation Amt Large (67-100%) -Granulation Quality Red -Slough/Fibrin Yes -Necrosis Amt Small (1-33%) -Necrotic Tissue Type Adherent Slough -Structure Exposed N/A -Texture (Gladys-wound Skin Appearance) Assessed, Scarring -Moisture (Gladys-wound Skin Appearance No Abnormality, ) Assessed -Color (Gladys-wound Skin Appearance) No Abnormality, Assessed -Temperature (Gladys-wound Skin No Abnormality Appearance) (Pt Warm) -Tenderness on Palpation (Gladys-wound No Skin Appearance) -Ulcer Cleansing soap and water -Foul Odor after Cleansing No -Anesthetic Used 5% Lidocaine Gel [Edema Assessment] -Lower Limb Edema Present No Musculoskeletal: No Muscle Wasting Neurological: Neuro grossly intact Psych/Mental Status: Normal Affect, Appropriate Debridement Note Post-Debridement Measurements/Treatment WC - Nurse 2 - General Ulcer CM Notes Start: 03/27/19 10:33 Freq: Status: Active Protocol: Activity Type Activity Date Activity User E-Sign Co-Sign Detail Recorded Client Recorded Date Recorded By Document 03/27/19 11:40 [id number] 03/27/19 11:43 Document 04/03/19 12:19 [id number] 04/03/19 12:22 11/04/19 11/11/19 11:40 12:19 Wound Center Nurse 2 #1 R GROIN -Time 11:40 12:21 -Correct Patient Yes Yes -Correct Side, Site, Position Yes Yes -Correct Procedure Yes Yes -Procedure Performed Yes Yes -Type of Procedure Debridement Debridement -Clinical Debridement Subcutaneous Subcutaneous -Post Debridement Size (cm) - Length 10.4 9.0 -Post Debridement Size (cm) - Width 2.0 1.5 -Post Debridement Size (cm) - Depth 1.0 1.0 -Total Square Cm 20.80 13.50 -Wound/Ulcer Outcome Not Healed Not Healed -Ulcer Cleansing Rinsed/ Rinsed/ Irrigated with Irrigated with Saline Saline -Foul Odor after Cleansing No No -Bioengineered Tissue No No -Bleeding Controlled with Pressure Pressure -Offloading No No -Treatment Response Procedure Procedure Tolerated Well Tolerated Well Pain Scale: 0-10 Numeric Is Patient Pain Free? Yes Yes Wound debrided: vulva/labia Laterality: Right Type of Debridement: Excisional debridement Anesthesia Used: 5% Lidocaine Gel Depth: Down to and including healthy tissue, in the subcutaneous layer Percentage of wound debrided: 100 Instrument Used: 5mm curette Tissue Removed: subcutaneous tissue and slough Severity: Fat Layer Exposed Amount of bleeding with debridement: Mild Bleeding Controlled with: Pressure, Compression and gauze Patient tolerated procedure well Assessment/Plan Active Problems (Last Updated 01/10/19 @ 10:44 by Santa Baker) Open wound of vulva (Acute) right vulva involving genitocrural area Non-healing open wound of right groin (Acute) Smoker (Chronic) Hidradenitis (Chronic) bilateral inguinal hidradenitis with extension into vulva from genitocrural area up to labia Vulval hidradenitis suppurativa (Chronic) from genitocrural area up to labia Assessment: 1. Open wound right vulva. 2. Non-healing opened wound right groin. 3. Hidradenitis. 4. Smoker Plan: Patient states she is feeling much better without the wound VAC therefore the wound VAC was discontinued and continue daily silver dressing changes. She was instructed to wash the area with soap and water daily. Gomez was discontinued and patient is voiding without difficulty but states her stream heads towards the ulcer. She is going to use a cup to void to prevent urine from going into the ulcer. Encourage increased protein intake due to Prealbumin is 16. Encouraged patient to stop smoking as it can impact wound healing. Surgical wound cultures positive for Staphylococcus lugdunensis, Staphylococcus epidermidis and Propionibacterium granulosum. She has completed Levaquin and Flagyl. Since her insurance will only pay for Levaquin 14 days out of every 26, will switch her antibiotic to Clindamycin TID. Follow up in one week. Code Visit [id number]
[2019-04-17 09:43] VITALS: BP 111/85; PULSE 74; RESP 16; TEMP 36.1; BMI 30.3
--- NOTE | 2019-04-17 14:10 | PN.PCM_ITS ---
(1) Open wound of vulva Status: Acute Code(s): S31.40XA - Unspecified open wound of vagina and vulva, initial encounter Comment: right vulva involving genitocrural area (2) Non-healing open wound of right groin Status: Acute Code(s): S31.103A - Unspecified open wound of abdominal wall, right lower quadrant without penetration into peritoneal cavity, initial encounter (3) Smoker Status: Chronic Code(s): F17.200 - Nicotine dependence, unspecified, uncomplicated (4) Hidradenitis Status: Chronic Code(s): L73.2 - Hidradenitis suppurativa Comment: bilateral inguinal hidradenitis with extension into vulva from genitocrural area up to labia (5) Vulval hidradenitis suppurativa Status: Chronic Code(s): L73.2 - Hidradenitis suppurativa Comment: from genitocrural area up to labia Type of Wound Date of Service: 04/17/19 Chief Complaint: Surgical wound of right inguinal area and right vulval hidrad entitis History of Wound: On 03/14/19 patient under went 1. Surgical preparation right inguinal area with excision hidradenitis (50 cm2). 2. Excision right vulval hidradenitis involving genitocrural area partial vulvectomy including deep subcutaneous tissue (50 cm2). She was discharged with a wound VAC and Gomez catheter. Surgical cultures were positive for Staphylococcus lugdunensis, Staphylococcus epidermidis, and Propionibacterium granulosum. She was treated with Levaquin and Flagyl. Prealbumin 16 from 03/15/19. Wound care: Daily silver dressing changes. The gomez is gone and she states that her urine stream goes towards the ulcer now. She is trying to use a cup to void in to prevent urine from going into the wound. She states her appetite is ok. Progress of Wound: Improved. - Physical Exam Vital Signs Temp Pulse Resp BP 96.9 F L 74 16 111/85 H 04/17/19 09:43 04/17/19 09:43 04/17/19 09:43 04/17/19 09:43 General: Alert, Oriented x3, Cooperative HEENT: Atraumatic Oral: Moist Mucosa Lungs: Normal air movement Cardiovascular: Regular rate Extremities: Capillary Refill Less than 3 Seconds, Peripheral Pulses Normal Skin: Ulcer/ Wound - right vulva/labia wound Wound Measurements and Assessment - Nurse 1 - General Ulcer Measurement Start: 03/27/19 10:33 Freq: Status: Active Protocol: Activity Type Activity Date Activity User E-Sign Co-Sign Detail Recorded Client Recorded Date Recorded By Document 04/17/19 09:43 [facility] [id number] 04/17/19 09:49 [facility] 04/17/19 09:43 Wound Center Nurse 1 [Ulcer Assessment] #1 R GROIN -Combined with other wound No -Current Size (cm) - Length 5 -Current Size (cm) - Width 0.5 -Current Size (cm) - Depth 0.1 -Total Square Cm 2.5 -Photo Taken No -Epithelialization Medium 34-66% -Tunneling No -Undermining/Tunneling No -Circular Undermining No -Exudate Amt None Present -Wound Margin Flat & Intact -Granulation Amt Large (67-100%) -Granulation Quality Red -Slough/Fibrin No -Necrosis Amt None Present (0 %) -Texture (Gladys-wound Skin Appearance) Assessed, Scarring -Moisture (Gladys-wound Skin Appearance Assessed ) -Color (Gladys-wound Skin Appearance) Assessed -Temperature (Gladys-wound Skin No Abnormality Appearance) (Pt Warm) -Tenderness on Palpation (Gladys-wound No Skin Appearance) -Ulcer Cleansing Rinsed/ Irrigated with Saline -Foul Odor after Cleansing No -Anesthetic Used 5% Lidocaine Gel - Nurse 2 - General Ulcer CM Notes Start: 03/27/19 10:33 Freq: Status: Active Protocol: Activity Type Activity Date Activity User E-Sign Co-Sign Detail Recorded Client Recorded Date Recorded By Document 04/17/19 10:02 [id number] 04/17/19 10:06 04/17/19 10:02 Wound Center Nurse 2 [Procedure/Treatment] -Time 10:03 -Correct Patient Yes -Correct Side, Site, Position Yes -Correct Procedure Yes -Procedure Performed Yes -Type of Procedure Debridement -Clinical Debridement Subcutaneous -Post Debridement Size (cm) - Length 5.5 -Post Debridement Size (cm) - Width 0.7 -Post Debridement Size (cm) - Depth 0.1 -Total Square Cm 3.85 -Wound/Ulcer Outcome Not Healed -Ulcer Cleansing Rinsed/ Irrigated with Saline -Foul Odor after Cleansing No -Bioengineered Tissue No -Bleeding Controlled with Pressure -Offloading No -Treatment Response Procedure Tolerated Well [See Physician Procedure note for Specifics] Pain Scale: 0-10 Numeric [Pain] -Is Patient Pain Free? Yes Musculoskeletal: No Muscle Wasting Neurological: Neuro grossly intact Psych/Mental Status: Normal Affect, Appropriate Debridement Note Post-Debridement Measurements/Treatment WC - Nurse 2 - General Ulcer CM Notes Start: 03/27/19 10:33 Freq: Status: Active Protocol: Activity Type Activity Date Activity User E-Sign Co-Sign Detail Recorded Client Recorded Date Recorded By Document 03/27/19 11:40 [id number] 03/27/19 11:43 Document 04/03/19 12:19 [id number] 04/03/19 12:22 Document 04/17/19 10:02 [id number] 04/17/19 10:06 03/27/19 04/03/19 04/17/19 11:40 12:19 10:02 Wound Center Nurse 2 #1 R GROIN -Time 11:40 12:21 10:03 -Correct Patient Yes Yes Yes -Correct Side, Site, Position Yes Yes Yes -Correct Procedure Yes Yes Yes -Procedure Performed Yes Yes Yes -Type of Procedure Debridement Debridement Debridement -Clinical Debridement Subcutaneous Subcutaneous Subcutaneous -Post Debridement Size (cm) - Length 10.4 9.0 5.5 -Post Debridement Size (cm) - Width 2.0 1.5 0.7 -Post Debridement Size (cm) - Depth 1.0 1.0 0.1 -Total Square Cm 20.80 13.50 3.85 -Wound/Ulcer Outcome Not Healed Not Healed Not Healed -Ulcer Cleansing Rinsed/ Rinsed/ Rinsed/ Irrigated with Irrigated with Irrigated with Saline Saline Saline -Foul Odor after Cleansing No No No -Bioengineered Tissue No No No -Bleeding Controlled with Pressure Pressure Pressure -Offloading No No No -Treatment Response Procedure Procedure Procedure Tolerated Well Tolerated Well Tolerated Well Pain Scale: 0-10 Numeric Is Patient Pain Free? Yes Yes Yes Wound debrided: vulva/labia Laterality: Right Type of Debridement: Excisional debridement Anesthesia Used: 5% Lidocaine Gel Depth: Down to and including healthy tissue, in the subcutaneous layer Percentage of wound debrided: 100 Instrument Used: 3mm curette Tissue Removed: subcutaneous tissue and slough Severity: Limited To Skin Breakdown Amount of bleeding with debridement: Mild Bleeding Controlled with: Pressure Patient tolerated procedure well Assessment/Plan Assessment: 1. Open wound right vulva. 2. Non-healing opened wound right groin. 3. Hidradenitis. 4. Smoker Plan: Patient states she is feeling much better without the wound VAC therefore the wound VAC was discontinued and continue daily silver dressing changes. She was instructed to wash the area with soap and water daily. Gomez was discontinued and patient is voiding without difficulty but states her stream heads towards the ulcer. She is going to use a cup to void to prevent urine from going into the ulcer. Encourage increased protein intake due to Prealbumin is 16. Encouraged patient to stop smoking as it can impact wound healing. Surgical wound cultures positive for Staphylococcus lugdunensis, Staphylococcus epidermidis and Propionibacterium granulosum. She has completed Levaquin and Flagyl. Since her insurance will only pay for Levaquin 14 days out of every 26, will switch her antibiotic to Clindamycin TID, which was refilled today. She states that her urine stream is going towards the right. She states hse has had issues with this for years since she had a urethral cyst removed. She also has stress incontinence. Will refer her to Dr. Tejada for evaluation. Follow up in one week. Code Visit [id number]
== END 2019-04-22 23:59 ==
LOC: WC 09:45
PROVIDERS: Family Provider Family Medicine; PCP Family Medicine; Visit Provider Nurse Practitioner Family
DX: L73.2 Hidradenitis suppurativa (principal); F17.200 Nicotine dependence, unspecified, uncomplicated; T81.89XA Other complications of procedures, not elsewhere classified, initial encounter; Y83.8 Other surgical procedures as the cause of abnormal reaction of the patient, or of later complication, without mention of misadventure at the time of the procedure; N39.3 Stress incontinence (female) (male)
CPT/HCPCS: 11042; 11045; 99213; G0463

== ENCOUNTER 2019-04-24 10:25 | Outpatient (RCR) | payer MEDICAID, SELFPAY ==
[2019-04-23 01:10] VITALS: BP 111/85; PULSE 74; RESP 16; TEMP 36.1
[2019-04-24 10:25] VITALS: BP 122/78; PULSE 73; RESP 16; TEMP 35.4; BMI 30.3
--- NOTE | 2019-04-24 13:41 | PN.PCM_ITS ---
(1) Open wound of vulva Status: Chronic Code(s): S31.40XA - Unspecified open wound of vagina and vulva, initial encounter Comment: right vulva involving genitocrural area (2) Hidradenitis Status: Chronic Code(s): L73.2 - Hidradenitis suppurativa Comment: bilateral inguinal hidradenitis with extension into vulva from genitocrural area up to labia (3) Smoker Status: Chronic Code(s): F17.200 - Nicotine dependence, unspecified, uncomplicated Type of Wound Date of Service: 04/24/19 Chief Complaint: Surgical wound of right inguinal area and right vulval hidradentitis History of Wound: On 03/14/19 patient under went 1. Surgical preparation right inguinal area with excision hidradenitis (50 cm2). 2. Excision right vulval hidradenitis involving genitocrural area partial vulvectomy including deep subcutaneous tissue (50 cm2). She was discharged with a wound VAC and Gomez catheter. Surgical cultures were positive for Staphylococcus lugdunensis, Staphylococcus epidermidis, and Propionibacterium granulosum. She was treated with Levaquin and Flagyl. Prealbumin 16 from 03/15/19. Wound care: Today she has healed. The gomez is gone and she states that her urine stream goes towards the ulcer now. She is trying to use a cup to void in to prevent urine from going into the wound. She states her appetite is ok. Progress of Wound: Healed - Physical Exam Vital Signs Temp Pulse Resp BP 95.7 F L 73 16 122/78 H 04/24/19 10:25 04/24/19 10:25 04/24/19 10:25 04/24/19 10:25 General: Alert, Oriented x3, Cooperative HEENT: Atraumatic Oral: Moist Mucosa Lungs: Normal air movement Cardiovascular: Regular rate Extremities: No edema Skin: Ulcer/ Wound - Right labial ulcer is healed today Wound Measurements and Assessment WC - Nurse 1 - General Ulcer Measurement Start: 04/24/19 10:25 Freq: Status: Active Protocol: Activity Type Activity Date Activity User E-Sign Co-Sign Detail Recorded Client Recorded Date Recorded By Document 04/24/19 10:25 [facility] [id number] 04/24/19 10:28 [facility] 12/02/19 10:25 Wound Center Nurse 1 [Ulcer Assessment] #1 R GROIN -Combined with other wound No -Current Size (cm) - Length 0.1 -Current Size (cm) - Width 0.1 -Current Size (cm) - Depth 0.1 -Total Square Cm 0.01 -Epithelialization Large 67-100% -Tunneling No -Undermining/Tunneling No -Circular Undermining No -Exudate Amt None Present -Granulation Amt Small (1-33%) -Granulation Quality [place] -Slough/Fibrin No -Necrosis Amt None Present (0 %) -Texture (Gladys-wound Skin Appearance) Assessed, Scarring -Moisture (Gladys-wound Skin Appearance Assessed,Dry/ ) Scaly -Color (Gladys-wound Skin Appearance) Assessed -Temperature (Gladys-wound Skin No Abnormality Appearance) (Pt Warm) -Tenderness on Palpation (Gladys-wound No Skin Appearance) -Ulcer Cleansing Rinsed/ Irrigated with Saline -Foul Odor after Cleansing No -Anesthetic Used 5% Lidocaine Gel - Nurse 2 - General Ulcer CM Notes Start: 04/24/19 10:25 Freq: Status: Active Protocol: Activity Type Activity Date Activity User E-Sign Co-Sign Detail Recorded Client Recorded Date Recorded By Document 04/24/19 11:00 [id number] [id number] 04/24/19 11:01 04/24/19 11:00 Wound Center Nurse 2 [Procedure/Treatment] -Correct Patient No -Correct Side, Site, Position No -Correct Procedure No -Procedure Performed No -Post Debridement Size (cm) - Length 0 -Post Debridement Size (cm) - Width 0 -Post Debridement Size (cm) - Depth 0 -Total Square Cm 0 -Wound/Ulcer Outcome Healed- Epithelialized [See Physician Procedure note for Specifics] Pain Scale: 0-10 Numeric [Pain] -Is Patient Pain Free? Yes Musculoskeletal: No Tenderness to Palpation of Joints or Extremities Neurological: Neuro grossly intact Psych/Mental Status: Normal Affect, Appropriate Debridement Note Post-Debridement Measurements/Treatment - Nurse 2 - General Ulcer CM Notes Start: 04/24/19 10:25 Freq: Status: Active Protocol: Activity Type Activity Date Activity User E-Sign Co-Sign Detail Recorded Client Recorded Date Recorded By Document 04/24/19 11:00 JF [id number] 04/24/19 11:01 04/24/19 11:00 Wound Center Nurse 2 #1 R GROIN -Correct Patient No -Correct Side, Site, Position No -Correct Procedure No -Procedure Performed No -Post Debridement Size (cm) - Length 0 -Post Debridement Size (cm) - Width 0 -Post Debridement Size (cm) - Depth 0 -Total Square Cm 0 -Wound/Ulcer Outcome Healed- Epithelialized Pain Scale: 0-10 Numeric Is Patient Pain Free? Yes No debridement was completed today Assessment/Plan Assessment: 1. Open wound right vulva. 2. Non-healing opened wound right manuel in. 3. Hidradenitis. 4. Smoker Plan: Today she is healed. We will discharge her from the wound center. She saw Dr. Tejada last week and she states there is nothing she can do about her urine stream going to the right. It is related to her previous surgery on her urethra. If she has any further issues she may follow-up as needed. Code Visit [id number]
== END 2019-05-23 23:59 ==
LOC: WC 10:25
PROVIDERS: Family Provider Family Medicine; PCP Family Medicine; Visit Provider Nurse Practitioner Family
DX: Z09 Encounter for follow-up examination after completed treatment for conditions other than malignant neoplasm (principal); L73.2 Hidradenitis suppurativa; F17.200 Nicotine dependence, unspecified, uncomplicated
CPT/HCPCS: 99212; G0463

== ENCOUNTER → 2022-07-06 | Outpatient (CLI) | payer MEDICAID, SELFPAY ==
--- NOTE | 2022-07-06 09:33 | RAD_ITS ---
EXAM: XR ABDOMEN, 1 VIEW CLINICAL INDICATION: STONES TECHNIQUE: Frontal supine view of the abdomen/pelvis. This report was created using [employer] report generation technology. COMPARISON: None. FINDINGS: LOWER THORAX: No acute pathology. GASTROINTESTINAL TRACT: Surgical changes of the proximal stomach suggestive of gastric bypass. Mild distention of the small bowel suggestive of ileus. ORGANS: 3 mm stones project within the lower pole of the right kidney. BONES/JOINTS: No acute abnormality. SOFT TISSUES: No pathological calcification. RAD/Abdomen Single View IMPRESSION: 1. Right nephrolithiasis. 2. Mild small bowel ileus. Electronically Signed: Cabrera Armendariz MD at 12:56 EST ,
== END | disposition home or self-care (01) ==
LOC: MTRAD 09:31
PROVIDERS: PCP Family Medicine; Referring Provider Urology; Visit Provider Urology
DX: N20.0 Calculus of kidney (principal)
CPT/HCPCS: 74018

== ENCOUNTER 2022-07-09 08:04 | Day surgery (SDC) | payer MEDICAID, SELFPAY ==
[2022-07-09] VITALS (8 sets, daily range): BP systolic 101–132; BP diastolic 60–87; PULSE 54–60; RESP 16–18; TEMP 36.1–36.7; O2SAT 95–100; BMI 31.2
[2022-07-09] MEDS: Lactated Ringers 1,000 ML 15 ML IV ×2 (08:55→13:28)
--- NOTE | 2022-07-09 10:45 | CALC_PTH ---
PATIENT: ERNIE CASTANO LOC: [facility] [place] U#:[id number] AGE/SX: 56/F ROOM: RE07/09/[address]: Dr. Clover Tejada MD : 1965 BED: DIS: 07/09/2022 SPEC #: [id number] RECD: 07/09/22 13:05 STATUS: THAIS BRICEÑO #: [id number] MONALISA: 07/09/22 10:[address]: Clover Tejada DEPT: SURGICAL PATHOLOGY RECD BY: Judy Benitez ENTERED: 07/09/22 14:02 SP TYPE: Calculi OTHR DR: Dr. Anthony Pollard MD Tissues: CALCULI Procedures: Surgery Specimen Level I HEADER OPERATION: Cystoscopy, bilateral ureteroscopy, right laser lithotripsy PRE-OP DIAGNOSIS: Obstruction of right ureteropelvic junction due to calculi, left ureteral calculi, flank pain TISSUE SUBMITTED: Right ureteral stone for analysis GROSS DIAGNOSIS Fragments of stone, clinically right ureteral stone. DANILO:shania 07/10/2022 COMMENT The calculus is submitted in its entirety for chemical stone analysis. The results from this study will be reported separately. GROSS DESCRIPTION Received without fixative labeled with the patient's name and designated right ureteral stone. The specimen consists of two fragments of black stone measuring in aggregate 0.7 x 0.5 x 0.2 cm. The entire specimen is submitted for stone analysis. / DANILO:shania 07/09/2022 CPT: 60655
[2022-07-09] MEDS: Cefazolin 2 GM in 0.9% Normal Saline 100 ML IV (11:40)
--- NOTE | 2022-07-09 12:57 | EX.PCM.DISCH ---
Discharge Instructions Diet Discharge Diet: No restrictions Activity Discharge Activity: Return to Normal Activity and No Restrictions Dressing / Incision Call your doctor if you observe: Fever of 101 or Higher, Inability to urinate and Inability to have a bowel movement Follow Up Care Please Follow Up With: Clover Tejada MD When: next week for stent removal, call for appt. Test Results: Test results from this visit will be discussed in further detail at your follow-up appointment, if applicable. Discharge Plan Admission Attending Provider: Clover Tejada Primary Care Provider: Anthony Pollard Discharge Orders/Prescriptions Prescriptions: New oxycodone-acetaminophen [Percocet] 5-325 mg tablet 1 tab PO Q8H PRN (Reason: pain) 3 Days Qty: 10 0RF cephalexin [cephalexin] 500 mg capsule 500 mg PO Q12 3 Days Qty: 6 0RF phenazopyridine [Pyridium] 200 mg tablet 200 mg PO TID PRN PRN (Reason: Bladder Spasms) 7 Days Qty: 30 0RF Continued quetiapine 50 mg tablet 50 - 150 mg PO QHS Dexilant 60 mg capsule,biphase delayed releas 60 mg PO QHS hydrocodone-acetaminophen [[place]] 7.5-325 mg tablet 1 tab PO Q6H atorvastatin 10 mg tablet 10 mg PO QHS cholecalciferol (vitamin D3) 5,000 unit capsule 5,000 unit PO DAILY biotin 10,000 mcg capsule 5,000 mcg SL DAILY tizanidine 4 mg capsule 4 mg PO TID cyanocobalamin (vitamin B-12) 5,000 MCG tablet,disintegrating 6,000 mcg SL FR fluoxetine [Prozac] 40 mg Capsule 40 mg PO QPM acetazolamide 250 mg Tablet 250 mg PO QHS famotidine [Pepcid] 20 mg Tablet 20 mg PO BID magnesium 100 mg Capsule 50 mg PO QHS ascorbic acid (vitamin C) 1,000 mg Capsule, Extended Release 1 cap PO DAILY Multivitamin Women 50 Plus 8 mg iron-400 mcg-300 mcg Tablet 1 tab PO DAILY Referrals / Follow Up: Anthony Pollard MD [Primary Care Provider] - Disposition Disposition (needs filled in before D/C Order can be placed): Home, Self Care
[2022-07-09] MEDS: Phenazopyridine 95 MG Tablet 190 MG PO (13:13)
[2022-07-09] MEDS: Ketorolac 30 MG/ML Syringe IV (13:15)
[2022-07-09] MEDS: oxyCODONE 5 MG Tablet 10 MG PO (13:43)
--- NOTE | 2022-07-09 13:46 | PCM.OPRPT ---
Report of Operation Date of Procedure: 07/09/22 Pre-Operative Diagnosis: Bilateral ureteral calculi Post-Operative Diagnosis: Same, passed on the left Surgery/Procedure Performed:: Cystoscopy, left ureteroscopy, left retrograde pyelogram, right ureteroscopy, laser lithotripsy, stone basket extraction and right ureteral stent insertion Surgeon: Clover Tejada Type of Anesthesia: General Specimen's removed: Right ureteral calculus Description of Procedure: The patient is a 56-year-old female seen in the emergency room last week and diagnosed with a right ureteral calculus as well as a distal left ureteral calculus. She now presents for surgical intervention as her pain has continued. Informed consent was obtained. The patient was taken to the operating room and placed on the operating room table. Anesthesia monitored the head, neck, airway, IV access and vital signs throughout the case. Once anesthesia was appropriately administered, the patient was placed into dorsal lithotomy position and was prepped and draped in usual sterile fashion. The cystoscope was inserted through the urethra under direct visualization into the urinary bladder. The bladder mucosa was found to have no evidence of mass, erythema or ulceration. There was no foreign body. The left ureteral orifice was identified and carefully intubated with a 0.035 Glidewire. The semirigid ureteroscope was then used to gain access to the left ureter and was advanced as far as possible into the distal ureter until the narrowing was encountered. At this time contrast was injected in retrograde fashion under fluoroscopic visualization revealing no evidence of filling defect or hydronephrosis. At this time the ureteroscope and the Glidewire were removed. Attention was then turned towards the right ureter. The ureteral orifice was intubated with an 0.035 Glidewire. The semirigid ureteroscope was then used to identify the large ureteral stone which had advanced down into the distal ureter. Using a 270 ?m laser fiber, the stone was broken into 2 pieces which were then removed using the stone basket. Using the indwelling Glidewire, a 6 Italian 26 cm JJ stent was placed over the wire with good curling in the renal pelvis as well as the urinary bladder. Patient's urinary bladder was then emptied and the cystoscope was removed. She was awakened and taken to the recovery room in good condition. There were no complications during this procedure. Grafts/Implants Used: 6 x 26 JJ stent Complications None Admit VTE Documentation VTE Present on Admission: Yes VTE Mechan Device Prophylaxis: SCD's VTE Pharm Prophylaxis ordered?: No Reason prophylaxis not ordered:: Treatment Not Indicated
== END 2022-07-09 14:53 | disposition home or self-care (01) ==
LOC: SDC 08:05 → AC 08:06
PROVIDERS: PCP Family Medicine; Referring Provider Urology; Visit Provider Urology
PROC: 0TJ98ZZ Inspection of Ureter, Via Natural or Artificial Opening Endoscopic (ICD-10-PCS; CPT 52352; principal; 2022-07-09 10:35)
DX: N13.2 Hydronephrosis with renal and ureteral calculous obstruction (principal); N39.3 Stress incontinence (female) (male); F17.200 Nicotine dependence, unspecified, uncomplicated; Z79.899 Other long term (current) drug therapy; I10 Essential (primary) hypertension; E78.00 Pure hypercholesterolemia, unspecified
CPT/HCPCS: 52356; 00918; 76000; 82360; 88300; J7120; C2617; J2405

== ENCOUNTER → 2022-08-17 | Outpatient (CLI) | payer MEDICAID, SELFPAY ==
--- NOTE | 2022-08-17 13:11 | CT_ITS ---
STUDY: CT ABDOMEN AND PELVIS WITHOUT CONTRAST REASON FOR EXAM: Female, 56 years old. FLANK PAIN. History of kidney stones. Recent stent removal. RADIATION DOSAGE (If Supplied By Facility): CTDIvol = ( 10.30 ) mGy, DLP = ( 564.00 ) mGycm TECHNIQUE: Transaxial images were obtained from the dome of the diaphragm to the symphysis pubis without oral contrast, and without intravenous contrast. Sagittal and coronal images were reconstructed. Individualized dose optimization techniques were used for this CT. COMPARISON: None. FINDINGS: The visualized lung bases are unremarkable. Coronary artery calcification. Normal liver. There are surgical clips in the gallbladder fossa consistent with a prior cholecystectomy. Normal spleen. Normal pancreas. Normal bilateral adrenal glands. 2 adjacent nonobstructive calculi in the lower pole of the right kidney. The larger calculus measures 3 mm. Normal left kidney. Surgical clips are seen at the level of the gastroesophageal junction most likely secondary to prior hiatal hernia surgery. Surgical anastomosis is also seen within the jejunal bowel loop in the mid abdomen. There are scattered colonic diverticula consistent with diverticulosis. The appendix is visualized and appears normal. There is scattered atherosclerotic calcification of the abdominal aorta, without a demonstrated aneurysm. Normal inferior vena cava. Normal retroperitoneum. Normal urinary bladder. There is absence of the uterus consistent with a prior hysterectomy. Normal abdominal wall. Prior prosthetic disc at the L5-S1 level. CT/Abdomen/Pelvis without Cont IMPRESSION: 2 adjacent nonobstructive calculi seen in the lower pole calyx of the right kidney. Status post hysterectomy and cholecystectomy. Electronically Signed: Andrzej Patel MD at 16:43 EDT ,
== END | disposition home or self-care (01) ==
LOC: CT 13:10
PROVIDERS: PCP Family Medicine; Visit Provider Urology
DX: R10.9 Unspecified abdominal pain (principal); N20.1 Calculus of ureter
CPT/HCPCS: 74176

== ENCOUNTER 2022-09-03 05:48 | Day surgery (SDC) | payer MEDICAID, SELFPAY ==
[2022-09-03] VITALS (7 sets, daily range): BP systolic 89–113; BP diastolic 47–75; PULSE 53–61; RESP 16–18; TEMP 36.1–36.7; O2SAT 97–99; BMI 31.1
--- NOTE | 2022-09-03 | CALC_PTH ---
PATIENT: ERNIE CASTANO [place] [facility] [place][id number] AGE/SX: 56/F ROOM: RE09/03/[address]: Dr. Clover Tejada MD : 1965 BED: DIS: 09/03/2022 SPEC #: [id number] RECD: 09/03/22 10:14 STATUS: THAIS REKatty #: [id number] MONALISA: 09/03/22 00:[address]: Clover Tejada DEPT: SURGICAL PATHOLOGY RECD BY: Judy Benitez ENTERED: 09/03/22 11:40 SP TYPE: Calculi OTHR DR: Dr. Anthony Pollard MD Tissues: CALCULI Procedures: Surgery Specimen Level I HEADER OPERATION: Cysto, ureteroscopy, laser, basket extraction, stent PRE-OP DIAGNOSIS: Bilateral ureteral calculi TISSUE SUBMITTED: Ureteral calculi GROSS DIAGNOSIS A fragment of stone, clinically ureteral calculus (gross only). SJ:shania 09/04/2022 COMMENT The calculus is submitted in its entirety for chemical stone analysis. The results from this study will be reported separately. GROSS DESCRIPTION Received without fixative labeled with the patient's name and designated ureteral calculi. The specimen consists of a fragment of black stone measuring 0.2 x 0.1 x 0.1 cm. The calculus is submitted in its entirety for chemical stone analysis. / DANILO:shania 09/03/2022 CPT: 26141
[2022-09-03] MEDS: Lactated Ringers 1,000 ML 15 ML IV (06:40)
[2022-09-03] MEDS: Cefazolin 2 GM in 0.9% Normal Saline 100 ML IV (07:37)
--- NOTE | 2022-09-03 07:43 | EX.PCM.DISCH ---
Discharge Instructions Diet Discharge Diet: No restrictions Activity Discharge Activity: Return to Normal Activity May resume sexual activity in: No Restrictions Dressing / Incision Call your doctor if you observe: Fever of 101 or Higher, Inability to urinate and Inability to have a bowel movement Follow Up Care Please Follow Up With: Clover Tejada MD When: call office for appt Test Results: Test results from this visit will be discussed in further detail at your follow-up appointment, if applicable. Discharge Plan Admission Attending Provider: Clover Tejada Primary Care Provider: Anthony Pollard Discharge Orders/Prescriptions Prescriptions: New oxycodone-acetaminophen [oxycodone-acetaminophen] 5-325 mg tablet 2 tab PO Q8H PRN PRN (Reason: Pain) 7 Days Qty: 20 0RF cephalexin [cephalexin] 500 mg capsule 500 mg PO Q12 3 Days Qty: 6 0RF Continued quetiapine 50 mg tablet 50 - 150 mg PO QHS Dexilant 60 mg capsule,biphase delayed releas 60 mg PO QHS atorvastatin 10 mg tablet 10 mg PO QHS biotin 10,000 mcg capsule 5,000 mcg SL DAILY tizanidine 4 mg capsule 4 mg PO TID acetazolamide 250 mg Tablet 250 mg PO QHS famotidine [Pepcid] 20 mg Tablet 20 mg PO BID magnesium 100 mg Capsule 50 mg PO QHS ascorbic acid (vitamin C) 1,000 mg Capsule, Extended Release 1 cap PO DAILY phenazopyridine [Pyridium] 200 mg tablet 200 mg PO TID PRN PRN (Reason: Bladder Spasms) 7 Days Qty: 30 0RF potassium citrate 15 mEq Tablet Extended Release 15 meq PO BID methocarbamol 750 mg Tablet 750 mg PO TID ipratropium bromide 0.02 % Solution 2.5 ml INHALATION BID Held hydrocodone-acetaminophen [[place]] 7.5-325 mg tablet 1 tab PO Q6H Hold Instructions: Resume on 09/07/22. hold while taking percocet Referrals / Follow Up: Anthony Pollard MD [Primary Care Provider] - Disposition Disposition (needs filled in before D/C Order can be placed): Home, Self Care
--- NOTE | 2022-09-03 07:47 | PCM.OPRPT ---
Report of Operation Date of Procedure: 09/03/22 Pre-Operative Diagnosis: right renal stones, left flank pain Post-Operative Diagnosis: same Surgery/Procedure Performed:: cystoscopy, right ureteroscopy with laser lithotripsy, stone basket extraction and right ureteral stent insertion. Surgeon: Clover Tejada Type of Anesthesia: General Description of Procedure: The patient is a 56-year-old female with right-sided kidney pain and 2 intrarenal stones. Informed consent was obtained for treatment. The patient was taken to the operating room and placed on the operating room table. Anesthesia monitored the head, neck, airway, IV access and vital signs throughout the case. Once anesthesia was appropriate ministered, the patient was placed into dorsal lithotomy position and was prepped and draped in usual sterile fashion. The cystoscope was inserted through the urethra under direct visualization into the urinary bladder. The mucosa was evaluated finding no abnormalities. The left ureteral orifice was identified and gently cannulated with an 8 [place] cone-tip catheter. A retrograde pyelogram was performed under fluoroscopic visualization revealing no evidence of foreign body, filling defect, hydronephrosis or other obstruction. At this time 2 separate 0.035 Glidewire's were inserted through the right ureteral orifice into the renal pelvis is seen on fluoroscopy. Using one of the wires, a ureteral access sheath was placed under fluoroscopic visualization without difficulty. The flexible ureteroscope was then inserted through the access sheath and easily advanced into the renal pelvis. Multiple calyces were identified and directly visualized. The calyx with the stones was discovered in the mid to lower pole. The stones were still connected to the calyx. One of the stones was on the outside, the other one was covered by the papula. A stone basket extraction was attempted for the the stone stuck to the outside of the papula. This was unsuccessful. A holmium laser was then used to break the stone away from the papula. It was then removed with a stone basket. No other stones were identified, and the one covered by the papilla was left in situ. The ureteral access sheath was removed under direct visualization revealing no injury to the ureter. The remaining safety wire was used for PICC placement of a 4.5 x 26 cm JJ stent which had good positioning in the renal pelvis as well as the urinary bladder at the conclusion of the case. The bladder was emptied and the cystoscope was removed. The patient was awakened and taken to the recovery room in good condition. There were no complications during this procedure. Grafts/Implants Used: 4.5 x 26JJ stent Complications none Admit VTE Documentation VTE Present on Admission: Yes VTE Mechan Device Prophylaxis: SCD's VTE Pharm Prophylaxis ordered?: No Reason prophylaxis not ordered:: Treatment Not Indicated
[2022-09-12 22:21] LABS: Source URETER
== END 2022-09-03 10:50 | disposition home or self-care (01) ==
LOC: SDC 05:49 → AC 05:49
PROVIDERS: PCP Family Medicine; Referring Provider Urology; Visit Provider Urology
PROC: (CPT 52332; principal; 2022-09-03 07:20)
DX: N13.2 Hydronephrosis with renal and ureteral calculous obstruction (principal); N95.2 Postmenopausal atrophic vaginitis; N39.3 Stress incontinence (female) (male); I10 Essential (primary) hypertension; E78.00 Pure hypercholesterolemia, unspecified; K21.9 Gastro-esophageal reflux disease without esophagitis; F17.210 Nicotine dependence, cigarettes, uncomplicated; I25.2 Old myocardial infarction; Z98.84 Bariatric surgery status; Z86.711 Personal history of pulmonary embolism
CPT/HCPCS: 52356; 00918; 76000; 82360; 87086; 88300; J7120; J2405

== ENCOUNTER → 2022-11-09 | Outpatient (CLI) | payer MEDICAID, SELFPAY ==
--- NOTE | 2022-11-09 17:28 | US_ITS ---
STUDY: RENAL ULTRASOUND - COMPLETE REASON FOR EXAM: Female, 57 years old. FLANK PAIN, RT STONE TECHNIQUE: Ultrasound evaluation of the kidneys was performed with real-time and static lcuero-scale imaging. COMPARISON: CT of the abdomen August 17, 2022 FINDINGS: RIGHT KIDNEY: Normal location of the right kidney, which is normal in size. The right kidney measures 10.5 x 4.3 x 4.1 cm. There is a normal cortex of the right kidney. The renal cortex measures 1.4 cm. There is no right renal mass or cyst. There are 2 nonobstructing calculi measuring 4 x 3 x 3 mm and 4 x 3 x 4 mm. There is no right hydronephrosis. DISTAL RIGHT URETER: There is non-visualization of the distal right ureter. There is no demonstrated right ureterovesical junction calculus. There is a visualized right ureteral jet. LEFT KIDNEY: Normal location of the left kidney, which is normal in size. The left kidney measures 11.2 x 4.8 x 5.6 cm. There is a normal cortex of the left kidney. The renal cortex measures 1.7 cm. There is no left renal mass or cyst. There are no left renal calculi. There is no left hydronephrosis. DISTAL LEFT URETER: There is non-visualization of the distal left ureter. There is no demonstrated left ureterovesical junction calculus. There is a visualized left ureteral jet. BLADDER: The distended urinary bladder has a volume of 811.62 ml. There is a normal wall thickness of the distended urinary bladder. There is no demonstrated mass within the urinary bladder. There are no demonstrated bladder calculi. No significant change since prior study US/Kidney and Bladder IMPRESSION: Nonobstructing right renal calculi. No evidence for renal obstruction or mass Electronically Signed: Harry Diaz MD at 20:19 EDT ,
== END | disposition home or self-care (01) ==
LOC: US 17:08
PROVIDERS: PCP Family Medicine; Referring Provider Urology; Visit Provider Urology
DX: R10.9 Unspecified abdominal pain (principal); N20.0 Calculus of kidney
CPT/HCPCS: 76770

== ENCOUNTER 2022-12-23 11:04 | Observation (INO) | payer MEDICAID, SELFPAY ==
--- NOTE | 2022-12-22 23:52 | HP.PCM_ITS ---
History and Physical Date of Admission: 12/23/22 HISTORY OF PRESENT ILLNESS 57 year old woman presents for evaluation for hidradenitis. She states she mostly gets flare ups in her left inguinal area and left vulval area extending from genitocrural crease to the labia. When she gets a flare up, she develops increasing redness and pain and swelling and occasional drainage. At present she denies fever. She denies trauma. She had a flare up of hidradenitis involving her right inguinal area and right vulval area that required surgery on 03/14/19 where she underwent surgical preparation right inguinal area with excision hidradenitis (50 cm2) and excision right vulval hidradenitis involving genitocrural area with partial vulvectomy including deep subcutaneous tissue (50 cm2). The wounds were left open and healed using wound care and antibiotics on 04/24/19. She states her present hidradenitis infection is worse than the hidradenitis infection involving the right inguinal and vulval areas. She presents at this time for further evaluation and treatment. PAST MEDICAL HISTORY Ambulates with cane Anxiety and depression Arthritis BiPAP (biphasic positive airway pressure) dependence Bladder disease Carpal tunnel syndrome DDD (degenerative disc disease) Essential tremor Gait instability GERD (gastroesophageal reflux disease) High blood pressure High cholesterol History of diverticulitis History of hiatal hernia History of rheumatic fever History of steroid therapy History of urethral cyst Hx of hidradenitis suppurativa Hypoglycemia Injury of head and neck Intracranial hypertension Loss of hearing Low iron Migraine headache Neuropathy Osteoarthritis Pancreatitis Polycystic ovary Right renal stone Smoker Syncope Tinnitus of both ears Ureteral calculus, right Wears dentures Wears glasses PAST SURGICAL HISTORY Gastric bypass status for obesity H/O cataract removal with insertion of prosthetic lens History of back surgery History of cardiac catheterization History of delivery History of esophagogastroduodenoscopy (EGD) History of laparoscopic cholecystectomy History of neck surgery History of shoulder surgery History of tonsillectomy and adenoidectomy Hx of abdominal surgery Hx of brain surgery Hx of colonoscopy Hx of cystoscopy Hx of exploratory laparotomy Hx of lymph node biopsy Hx of total hysterectomy ALLERGIES duloxetine [From Cymbalta] Iodinated Contrast Media pregabalin [From Lyrica] ibuprofen morphine MEDICATIONS atorvastatin 10 mg tablet 10 mg PO QHS 01/10/19 [History Confirmed 11/16/22] biotin 10,000 mcg capsule 5,000 mcg sublingual DAILY 01/10/19 [History Confirmed 11/16/22] dexlansoprazole 60 mg capsule,biphase delayed release (Dexilant) 60 mg PO QHS 01/10/19 [History Confirmed 11/16/22] hydrocodone 7.5 mg-acetaminophen 325 mg tablet ([employer]) 1 tab PO Q6H 01/10/19 [History Confirmed 09/03/22] quetiapine 50 mg tablet 50 - 150 mg PO QHS 01/10/19 [History Confirmed 11/16/22] acetazolamide 250 mg tablet 250 mg PO QHS 07/07/22 [History Confirmed 11/16/22] ascorbic acid (vitamin C) 1,000 mg capsule,extended release 1 cap PO DAILY 07/07/22 [History Confirmed 11/16/22] famotidine 20 mg tablet (Pepcid) 20 mg PO BID 07/07/22 [History Confirmed 11/16/22] magnesium 100 mg capsule 50 mg PO QHS 07/07/22 [History Confirmed 11/16/22] phenazopyridine 200 mg tablet (Pyridium) 200 mg PO TID PRN PRN Bladder Spasms 7 days #30 tabs 07/09/22 [Rx Confirmed 11/16/22] potassium citrate 15 mEq (1,620 mg) tablet,extended release 15 meq PO BID 08/28/22 [History Confirmed 11/16/22] ipratropium bromide 0.02 % solution for inhalation 2.5 ml inhalation BID 09/03/22 [History Confirmed 11/16/22] methocarbamol 750 mg tablet 750 mg PO TID 09/03/22 [History Confirmed 11/16/22] oxycodone-acetaminophen 5 mg-325 mg tablet 2 tab PO Q8H PRN PRN Pain 7 days #20 tabs 09/03/22 [Rx Confirmed 11/16/22] bupropion HCl 150 mg 24 hr tablet, extended release 150 mg PO QAM 11/16/22 [History Confirmed 11/16/22] glucose 10 g PO ONCE PRN 11/16/22 [History Confirmed 11/16/22] hydroxyzine HCl 25 mg tablet 25 mg PO BID PRN 11/16/22 [History Confirmed 11/16/22] prazosin 2 mg capsule 2 mg PO QHS 11/16/22 [History Confirmed 11/16/22] urea 40 % topical cream 1 applic topical BID 11/16/22 [History Confirmed 11/16/22] doxycycline hyclate 100 mg capsule 100 mg PO BID #60 caps 12/03/22 [Rx Confirmed 12/03/22] FAMILY HISTORY Mother Anemia Anxiety Arthritis Cancer Depression Hypertension High cholesterol Skin cancer (melanoma) CVA (cerebral vascular accident) Thyroid disorder Suicide attempt Sister defect Cancer Hormone Problems Kidney disease Skin cancer (melanoma) Thyroid disorder Father Cancer Colon cancer SOCIAL HISTORY Smoking Status: Current every day smoker tobacco type: cigarettes alcohol intake: never substance use type: does not use REVIEW OF SYSTEMS General - Denies fever and weight loss. Has fatigue. Eyes - Has cataracts. Denies glaucoma. ENT - Denies nasal congestion and sore throat. Endocrine - Denies excessive thirst and urination. Has heat and cold intolerance. Skin - Denies skin cancer. Has left inguinal hidradenitis. Musculoskeletal - Has joint pain, joint stiffness, weakness of muscles and joints, back pain, and arthritis. Neuro - Has headaches and lightheadedness. Cardiovascular - Denies chest pain and shortness of breath with exertion. Has fatigue and lightheadedness. Psych - Denies anxiety. Has depression. Respiratory - Denies chronic cough and shortness of breath. Patient is a smoker. Has sleep apnea. Gastrointestinal - Denies nausea, vomiting, diarrhea, and constipation. Hematologic - Denies abnormal bruising and bleeding. Genitourinary - Denies hematuria and urinary frequency. Has incontinence. PHYSICAL EXAMINATION General - Alert and Oriented. HEENT - PERRL. EOMI. Throat is clear. No suspicious lesions noted. Neck - Supple and nontender. No cervical adenopathy. No suspicious lesions noted. Lungs - Clear to auscultation. Heart - Regular rate and rhythm. Abdomen - Soft and nondistended. Has hidradenitis in left inguinal area. There is an area of induration and tenderness to palpation. No purulent drainage. No fluctuance. Extends from inguinal area into the vulva involving the genitocrural crease up to the labia. Measures 10 cm. On the right inguinal and vulval areas are a healed scar from previous excision of hidradenitis. Extremities - FROM. No axillary adenopathy. Radial pulses are palpable. No inguinal adenopathy. Dorsalis pedis pulses are palpable. Neuro - CN II-XII grossly intact. Psych - Normal mood and affect. ASSESSMENT 1. Left inguinal hidradenitis. 2. Left vulval hidradenitis involving genitocrural crease up to the labia, 3. Smoker. PLAN Recommend excision of her hidradenitis in her left inguinal area with extension into the vulva with a partial vulvectomy. Will send tissue to Pathology for analysis to rule out carcinoma and to Microbiology for culture. A positive culture will necessitate antibiotic therapy. Will leave the wound open initially and proceed with wound care with the VAC or daily Silver dressings. At the time of surgery, she will be discharged home with a temporary gomez catheter to minimize urinary contamination during the healing process. Because the right side has been done, during the healing process of the left side, there is increased risk of scar contracture that would lead to spraying of her urine. If that were to occur, then would proceed with excision of the scar with delayed closure with skin grafting. Post discharge can followup at the [facility]. Surgery will be done under general anesthesia with a surgical observation overnight stay in the hospital. Patient was informed of the risks and complications of the procedure including alternatives to surgery. These were discussed with the patient personally. Patient voices understanding and wishes to proceed. Some of the risks and complications were included in a form from the [place] [employer]. Potential risks and complications included but not inclusive of bleeding, infection, seroma, hematoma, bruising, swelling, loss of sensation to skin, wound breakdown, need for wound care, poor scarring, poor aesthetic outcome, intra operative cardiac or neurologic events, DVT, PE, and reaction to anesthesia. Encouraged patient to stop smoking as it may have deleterious effects on wound healing. Before surgery, will place her on Doxycycline for flare ups which she can also use postoperatively as well. Assessment & Plan Assessment/Plan (1) Vulval hidradenitis suppurativa: (2) Hidradenitis: (3) Smoker:
[2022-12-23] VITALS (15 sets, daily range): BP systolic 97–137; BP diastolic 56–71; PULSE 48–63; RESP 16–18; TEMP 36.2–36.8; O2SAT 98–100; BMI 33.5; BMI 34.0
[2022-12-23] MEDS: Lactated Ringers 1,000 ML 15 ML IV ×2 (06:29→10:06)
--- NOTE | 2022-12-23 07:30 | HID_PTH ---
PATIENT: ERNIE CASTANO LOC: [facility] U#:[id number] AGE/SX: 57/F ROOM: [facility] RE12/23/[address]: Dr. César Franco MD : 1965 BED: 1 DIS: 12/25/2022 SPEC #: [id number] RECD: 12/23/22 11:32 STATUS: THAIS BRICEÑO #: [id number] MONALISA: 12/23/22 07:[address]: César Franco DEPT: SURGICAL PATHOLOGY RECD BY: Judy Benitez ENTERED: 12/23/22 13:31 SP TYPE: Hidradenit OTHR DR: Dr. Anthony Pollard MD Tissues: Vulva, NOS Procedures: Surgery Specimen Level III HEADER OPERATION: Surgical preparation left inguinal area with excision hidradenitis PRE-OP DIAGNOSIS: Left inguinal hidradenitis, left vulva hidradenitis involving genitocrural crease up to labia TISSUE SUBMITTED: Inguinal and vulva area hidradenitis soft tissue MICROSCOPIC DIAGNOSIS Inguinal and vulva area hidradenitis soft tissue: A piece of skin with underlying tissue with focal mild dermal chronic inflammation. DANILO:shania 12/24/2022 MICROSCOPIC DESCRIPTION Slides are reviewed. GROSS DESCRIPTION Received in fixative is one container labeled with the patient's name and designated inguinal and vulva area hidradenitis. The specimen consists of a piece of skin with underlying tissue measuring 13.0 x 4.5 cm and up to 1.0 cm in thickness. Sections do not reveal any mass lesion. Correctional Counselor sections are submitted in three cassettes. / DANILO:shania 12/23/2022 TC:3 CPT: 66588
[2022-12-23] MEDS: Clindamycin 900 MG/50 ML BAG 75 MG IV (07:39)
--- NOTE | 2022-12-23 08:49 | OP.PCM_ITS ---
Problems Associated Problem List Diagnoses (1) Hidradenitis: (2) Non-healing open wound of left groin: (3) Vulval hidradenitis suppurativa: (4) Open wound of vulva: (5) Smoker: Report of Operation Date of Procedure: 12/23/22 Pre-Operative Diagnosis: 1. Left inguinal hidradenitis. 2. Left vulval hidradenitis involving genitocrural crease up to the labia. 3. Smoker. Post-Operative Diagnosis: 1. Left inguinal hidradenitis. 2. Left vulval hidradenitis involving genitocrural crease up to the labia. 3. Open surgical hidradenitis wound left inguinal area. 4. Open surgical hidradenitis wound left vulval area extending from genitocrura l crease up to the labia. 5. Smoker. Surgery/Procedure Performed:: 1. Surgical preparation left inguinal area with excision hidradenitis (combined 82.5 cm2). 2. Surgical preparation left vulval area extending from genitocrural crease up to the labia with excision hidradenitis and radical partial vulvectomy including deep subcutaneous tissue (combined 82.5 cm2). Description of Surgical Findings:: 57 year old woman presents for evaluation for hidradenitis. She states she mostly gets flare ups in her left inguinal area and left vulval area extending from genitocrural crease to the labia. When she gets a flare up, she develops increasing redness and pain and swelling and occasional drainage. At present she denies fever. She denies trauma. She had a flare up of hidradenitis involving her right inguinal area and right vulval area that required surgery on 03/14/19 where she underwent surgical preparation right inguinal area with excision hidradenitis (50 cm2) and excision right vulval hidradenitis involving genitocrural area with partial vulvectomy including deep subcutaneous tissue (50 cm2). The wounds were left open and healed using wound care and antibiotics on 04/24/19. She states her present hidradenitis infection is worse than the hidradenitis infection involving the right inguinal and vulval areas. Patient was informed of the risks and complications of the procedure including alternatives to surgery. These were discussed with the patient personally. Patient voices understanding and wishes to proceed. Some of the risks and complications were included in a form from the [place] [employer]. Potential risks and complications included but not inclusive of bleeding, infec tion, seroma, hematoma, bruising, swelling, loss of sensation to skin, wound breakdown, need for wound care, poor scarring, poor aesthetic outcome, intra operative cardiac or neurologic events, DVT, PE, and reaction to anesthesia. Encouraged patient to stop smoking as it may have deleterious effects on wound healing. Size of left inguinal and left vulval wound extending from genitocrural crease to the labia - 15 x 5.5 x 2 cm (combined). Surgeon: César Franco MD automotive generator repairer: None Type of Anesthesia: General Anesthesiologist: Nikolay Miller MD and Ruiz Wallace CRNA Specimen's removed: Left inguinal hidradenitis and left vulval hidradenitis extending from genitocrural crease up to the labia to Pathology and Microbiology. Drains: None. Estimated Blood Loss (mL): 50. Fluids Replaced: Urine Output 250 ml. Description of Procedure: Patient was taken to OR in supine position and was placed under general anesthesia. Her legs were frog legged and the left inguinal and vulval areas were prepped and draped in the usual fashion. SCD's were placed for DVT prophylaxis. Perioperative antibiotics were given intravenously. A gomez catheter was placed. Using xylocaine with epinephrine, the areas of hidradenitis involving the left inguinal area and left vulval area were infiltrated. After waiting 5 minutes for the anesthetic to take effect, I excised the hidradenitis in the left inguinal area down through the subcutaneous tissue until fascia was seen. The hidradenitis extended into the vulval area involving the genitocrural area up to the labia. I then proceeded with excision hidradenitis left vulval area extending from the genitocrural area up to the labia. I excised the hidradenitis in the left vulval area down through the deep subcutaneous tissue until fascia was seen making it a partial vulvectomy. Tissue was sent to Pathology for analysis to rule out carcinoma and to Microbiology for culture. A positive culture will necessitate antibiotic therapy. Hemostasis was obtained with electrocautery. The wound was irrigated with saline. The size of the defect which combined both areas of hidradenitis involving the left inguinal area and left vulval area was 15 x 5.5 x 2 cm or 82.5 cm2. I dressed the wound with Mepitel nonadherent dressing followed by Kerlix gauze and Betadine followed by dry Kerlix gauze and an ABD pad. Meshed panties were used to help keep the dressing in place. The gomez catheter will stay in after discharge for a couple of weeks. Patient tolerated the procedure well and was sent to PACU in satisfactory condition. Patient will be sent upstairs for continued postop care. Will attempt VAC placement tomorrow. If there are difficulties with maintaining a seal secondary to its location, will change to a Silver dressing change daily or Dakin's dressing change daily. She can be discharged home when she is tolerating po analgesia and is steady on her feet with ambulation. She will followup at the [facility]ound Center after discharge. If there is a plateau in the healing process, will consider delayed closure with skin grafting. Grafts/Implants Used: None. Procedure Start Time: 08:07 Procedure Stop Time: 08:43 Complications None. Admit VTE Documentation VTE Present on Admission: No VTE Mechan Device Prophylaxis: SCD's VTE Pharm Prophylaxis ordered?: Yes Addendum Addendum: Surgery Charges CPT - 06232 ICD-10 - L73.2, S31.104A, F17.200 72730 L73.2, S31.40xA, F17.200
[2022-12-23] MEDS: Lidocaine 1% /Epi 1:100 (20ml) 20 ML Vial (08:51)
[2022-12-23] MEDS: Cefazolin 1 GM/50 ML BAG IV ×2 (14:16→22:55)
[2022-12-23] MEDS: oxyCODONE 5 MG Tablet 10 MG PO ×2 (14:16→20:24)
[2022-12-23] MEDS: HYDROmorphone 1 MG/ML Syringe IV ×2 (16:54→22:55)
[2022-12-23] MEDS: Juven (unflavored) Packet 1 PACKET PO (16:56)
[2022-12-23] MEDS: Methocarbamol 750 MG Tablet PO ×2 (16:56→22:55)
[2022-12-23] MEDS: Ipratropium 0.5 MG/2.5 ML SOLUTION INHALATION (21:59)
[2022-12-23] MEDS: Docusate Sodium 100 MG Capsule PO (22:32)
[2022-12-23] MEDS: Doxazosin 1 MG Tablet 1.5 MG PO (22:32)
[2022-12-23] MEDS: Atorvastatin Calcium 10 MG Tablet PO (22:32)
[2022-12-23] MEDS: QUEtiapine 100 MG Tablet PO (22:32)
[2022-12-23] MEDS: buPROPion (XL) 150 MG TABLET.XL PO (22:33)
[2022-12-23] MEDS: Famotidine 20 MG Tablet PO (22:33)
[2022-12-23] MEDS: Pantoprazole Sodium 40 MG Tablet PO (22:33)
[2022-12-24] VITALS (9 sets, daily range): BP systolic 90–106; BP diastolic 46–67; PULSE 61–82; RESP 16–18; TEMP 36.6–37.2; O2SAT 94–98
[2022-12-24] MEDS: HYDROmorphone 1 MG/ML Syringe IV ×3 (03:03→13:52)
[2022-12-24 06:00] LABS: Hematocrit 39.6 % (37-47); Hemoglobin 12.6 g/dL (12.0-15.0); Mean Corp Hgb Conc 31.8 g/dL (32-36); Mean Corpuscular Hgb 29.6 pg (27.0-32.0); Mean Corpuscular Volume 93.2 fL (81-99); Mean Platelet Vol. 9.8 fl (6.2-12.0); Platelet Count 213 K/mm3 (150-450); RBC Distribution Width CV 12.2 % (11.6-14.6); RBC Distribution Width SD 41.9 fl (35.1-43.9); Red Blood Count 4.25 M/mm3 (4.2-5.4); White Blood Count 7.8 K/mm3 (4.4-11.0)
[2022-12-24] MEDS: Cefazolin 1 GM/50 ML BAG IV ×3 (06:13→22:00)
[2022-12-24] MEDS: oxyCODONE 5 MG Tablet 10 MG PO ×2 (06:17→22:10)
[2022-12-24 06:33] LABS: Anion Gap 2 (5-15); BUN 18 mg/dL (7-18); BUN/Creat Ratio 19.8 RATIO (10-20); Calcium,Total 8.9 mg/dL (8.5-10.1); Chloride 107 mmol/L (98-107); Creatinine, Serum 0.91 mg/dL (0.55-1.02); EST Glomerular Filtration Rate 67 mL/min (>60); Est Glom Filt Rate - Afr Amer 81 mL/min (>60); Estimated Creatinine Clearance 57.48 ml/min; Glucose 99 mg/dL (74-106); Potassium 4.6 mmol/L (3.5-5.1); Sodium Level 139 mmol/L (136-145)
[2022-12-24] MEDS: Juven (unflavored) Packet 1 PACKET PO ×2 (08:03→17:10)
[2022-12-24] MEDS: Docusate Sodium 100 MG Capsule PO ×2 (08:03→22:05)
[2022-12-24] MEDS: Enoxaparin 40 MG/0.4 ML Syringe SC (08:03)
[2022-12-24] MEDS: Ipratropium 0.5 MG/2.5 ML SOLUTION INHALATION ×2 (09:08→19:46)
[2022-12-24] MEDS: DAKIN'S SOL HALF STRENGTH (=0.25%) 1 APPLIC TOPICAL (11:35)
--- NOTE | 2022-12-24 12:16 | WOUNDNOTE ---
wound photo: left inguinal area
--- NOTE | 2022-12-24 12:48 | CASEMGMT ---
Addendum entered by Gina Hernandez 12/24/22 16:24: Received returned call from Dixon at [facility], they can accept pt for SOC on Wednesday. Pt aware. Original Note: AURORA ALONSO Assessment: Face to Face with pt for initial transition planning/care coordination assessment. RN GAVIN introduced self and role at [facility], pt voices understanding and consents to assessment. Pt is A/O x4 and answers all questions appropriately at this time. Pt sitting up in bed with friend at bedside in no distress. Care providers, pharmacy, and demographics verified/updated. Admitting Dx: excision hidradenitis lt inguinal, lt vulval area PCP:Atul Specialists:Salvador, OR; Richa, cardio; Jairo, pain mgmt; Juan, pain mgmt; Mallory, uro; April, GI; Naima, brain surgeon at ; [facility], gastric bypass Preferred Pharmacy: [facility] Insurance: [facility] Community Plan [employer] Prescription Benefit: yes LNOK: Gilberto Nair, son; César Pedersontum, friend Living Arrangements: Pt lives with son and friend in a mobile home with 5 steps to enter with a rail. Pt reports she was I in ADL's prior to surgery and César is able to assist post surgery. Pt denies concerns at home. Transportation: Pt drives self and denies concerns with transportation. DME/HHC/SNF: Pt has a w/c, cane and walker. Pt has had CHN in the past and denies SNF stays. Pt states no concerns with going home at time of dc. She would like to have CHN with nurse Mena to see her again. Pt states César also can learn dressing changes. Pt states no further concerns/needs. CM to follow. Advised pt to ask CM if any further question/concerns/needs arise, voices understanding. Pt Goal: Home with HHC Plan: Home with HHC TC to Dixon at [facility], pt has had services in the past, referral made. Requested referral be faxed. Faxed at this time.
--- NOTE | 2022-12-24 13:45 | WOUNDNOTE ---
Pt had large amount of bleeding from the left inguinal/vulvar wound. In to reassess with ODALYS Chaudhry. a portion of the blood clot was removed to better assess where the bleeding is from. once visualized, the area was cauterized with a silver nitrate stick. no further oozing noted at this time. the remaining blood clot was left in place. will plan dressing change tomorrow with Dr Franco or ODALYS Chaudhry in case of further bleeding. was present at bedside for dressing change.
--- NOTE | 2022-12-24 13:52 | NURSING ---
into room. [place] Rn bedside nitrate sticks given. Richa KAUR bedside doing dressing changed. Dilaudid given 1mg iv x1 as ordered. 2lnc applied. BP noted to drop into 70's-80's SBP. 1402 500CC NS bolus hung as ordered. 80/57-88-98%2l. pt alert and oriented.
--- NOTE | 2022-12-24 14:06 | NURSING ---
VS 88/78-89-97% 2l
[2022-12-24] MEDS: Silver Nitrate (BKC) 1 EACH TOPICAL (14:09)
--- NOTE | 2022-12-24 17:08 | PN.SURG_ITS ---
Subjective Subjective Postop #1 Patient in bed, having increased pain. Called to evaluate bleeding from left inguinal incision Objective Data Objective Data Vital Signs: Vital Signs Temp Pulse Resp BP Pulse Ox O2 Del Method O2 Flow Rate 98.8 F 80 16 97/67 98 Room Air 2 12/24/22 14:39 12/24/22 14:41 12/24/22 14:39 12/24/22 14:39 12/24/22 14:39 12/24/22 14:41 12/24/22 14:39 Oxygen Flow Rate (L/min) 2 Oxygen Delivery Method Room Air Weight: 198 lb 6.656 oz Body Mass Index (BMI) 34.0 Intake & Output: Intake and Output for Last 24 Hours 12/22/22 12/23/22 12/24/22 23:59 23:59 23:59 Intake Total 1750 / 2250 1839 / 1839 Output Total 1999 / 2999 3350 / 3350 Balance -250 / -750 -1511 / -1511 Lab / Micro Data Attestation: I reviewed the patient's lab results. 12/24/22 05:36 12/24/22 05:36 Labs: Laboratory Results - last 24 hr 12/24/22 05:36: WBC 7.8, RBC 4.25, Hgb 12.6, Hct 39.6, MCV 93.2, MCH 29.6, MCHC 31.8 L, RDW Std Deviation 41.9, RDW Coeff of Librado 12.2, Plt Count 213, MPV 9.8, Sodium 139, Potassium 4.6, Chloride 107, Carbon Dioxide 30.0, Anion Gap 2 L, BUN 18, Creatinine 0.91, Estim Creat Clear Calc 57.48, Est GFR (MDRD) Af Amer 81, Est GFR (MDRD) Non-Af 67, BUN/Creatinine Ratio 19.8, Glucose 99, Calcium 8.9 Micro: Microbiology 12/23/22 09:00 Wound - Tissue Gram Stain - Final Physical Exam Const alert and oriented x3 Constitutional Narrative: Having increased pain and very uncomfortable. HEENT normocephalic Head and Scalp: atraumatic Resp normal respiratory effort Effort and Inspection: able to speak in complete sentences Cardio regular rate and regular rhythm Back/Spine normal ROM Extremity full ROM and normal capillary refill Skin Wound Narrative: Left inguinal incision with increased bleeding. Pressure held until bleeding decreased. There is large blood clot present. Able to remove some of the hemolyzed blood to visualize where oozing was coming from. Silver nitrate used to chemical cauterize the area and no further bleeding observed. Redressed wound with Dakins solution and covered with ABD. Neuro oriented x3 Assessment & Plan Assessment/Plan (1) Open wound of vulva: (2) Vulval hidradenitis suppurativa: (3) Hidradenitis: PLAN: Plan Called to evaluate increased bleeding from left inguinal wound. Patient having increased pain, especially with the pressure that was being held to help slow the bleeding. Dilaudid 1 mg given to help with the pain, in addition to the pain medication that she was given at 1100. Left inguinal incision with increased bleeding. Pressure held until bleeding decreased. There is large blood clot present. Able to remove some of the hemol yzed blood to visualize where oozing was coming from. Silver nitrate used to chemical cauterize the area and no further bleeding observed. Redressed wound with Dakins solution and covered with ABD. After the bleeding was under control, and she received the Dilaudid, she had a drop in her BP to 70s/50s. She was given NS 500 cc bolus and her blood pressure was 90/60s before I left the room. Hgb 12.6. Will reheck CBC in AM along with prealbumin. Encourage patient to increase her protein intake because of the increase metabolic demands she will have to heal this wound. Continue Cefazolin. Plan will be to send her home tomorrow as long as wound is stable.
[2022-12-24] MEDS: 0.9% Saline Lock 10 ML Syringe IV (17:13)
[2022-12-24] MEDS: Atorvastatin Calcium 10 MG Tablet PO (22:04)
[2022-12-24] MEDS: Famotidine 20 MG Tablet PO (22:04)
[2022-12-24] MEDS: Pantoprazole Sodium 40 MG Tablet PO (22:04)
[2022-12-24] MEDS: QUEtiapine 100 MG Tablet PO (22:04)
[2022-12-25 05:10] VITALS: BP 96/57; PULSE 79; RESP 18; TEMP 36.6; O2SAT 96
[2022-12-25] MEDS: Cefazolin 1 GM/50 ML BAG IV (05:14)
[2022-12-25 07:02] VITALS: PULSE 85; RESP 20; O2SAT 98
[2022-12-25] MEDS: Ipratropium 0.5 MG/2.5 ML SOLUTION INHALATION (07:02)
[2022-12-25] MEDS: oxyCODONE 5 MG Tablet 10 MG PO (09:05)
[2022-12-25] MEDS: Docusate Sodium 100 MG Capsule PO (09:07)
[2022-12-25] MEDS: buPROPion (XL) 150 MG TABLET.XL PO (09:07)
[2022-12-25] MEDS: Juven (unflavored) Packet 1 PACKET PO (09:07)
[2022-12-25 09:10] VITALS: BP 92/54; PULSE 79; RESP 16; TEMP 36.8; O2SAT 100
[2022-12-25 09:17] VITALS: O2SAT 95
[2022-12-25] MEDS: HYDROmorphone 1 MG/ML Syringe IV (10:01)
[2022-12-25] MEDS: DAKIN'S SOL HALF STRENGTH (=0.25%) 1 APPLIC TOPICAL (10:02)
[2022-12-25 11:29] LABS: Hematocrit 34.4 % (37-47); Hemoglobin 11.6 g/dL (12.0-15.0); Mean Corp Hgb Conc 33.7 g/dL (32-36); Mean Corpuscular Hgb 30.8 pg (27.0-32.0); Mean Corpuscular Volume 91.2 fL (81-99); Mean Platelet Vol. 9.8 fl (6.2-12.0); Platelet Count 189 K/mm3 (150-450); RBC Distribution Width SD 40.1 fl (35.1-43.9); Red Blood Count 3.77 M/mm3 (4.2-5.4); White Blood Count 8.3 K/mm3 (4.4-11.0)
[2022-12-25 12:03] LABS: Prealbumin 16.4 mg/dL (20.0-40.0)
--- NOTE | 2022-12-25 12:58 | PCM.PN.SRG ---
Subjective Subjective Postop #2 Patient is resting comfortably. She tolerated the Dakin's dressing change reasonably well with some areas of pain noted when I was removing some of the remaining blood clot. No areas of active bleeding noted with the Dakin's dressing change. She is steady on her feet with ambulation. She is tolerating po analgesia. Objective Data Objective Data Vital Signs: Vital Signs Temp Pulse Resp BP Pulse Ox O2 Del Method O2 Flow Rate 98.3 F 79 16 92/54 L 95 Room Air 2 12/25/22 09:10 12/25/22 09:10 12/25/22 09:10 12/25/22 09:10 12/25/22 09:17 12/25/22 09:17 12/25/22 08:00 Oxygen Flow Rate (L/min) 2 Oxygen Delivery Method Room Air Weight: 198 lb 6.656 oz Body Mass Index (BMI) 34.0 Intake & Output: Intake and Output for Last 24 Hours 12/23/22 12/24/22 12/25/22 23:59 23:59 23:59 Intake Total 1750 / 2250 2620.5 / 2620.5 550 / 550 Output Total 2000 / 3000 3600 / 5000 2750 / 2750 Balance -250 / -750 -979.5 / -2379.5 -2200 / -2200 Prealbumin was 16.4. Encourage nutritional supplementation with protein to help the healing process. Lab / Micro Data Attestation: I reviewed the patient's lab results. Lab results narrative: Repeat Hgb was stable at 11.6. 12/25/22 11:21 12/24/22 05:36 Labs: Laboratory Results - last 24 hr 12/25/22 11:21: WBC 8.3, RBC 3.77 L, Hgb 11.6 L, Hct 34.4 L, MCV 91.2, MCH 30.8, MCHC 33.7 D, RDW Std Deviation 40.1, RDW Coeff of Librado 12.0, Plt Count 189, MPV 9.8, Prealbumin 16.4 L Micro: Microbiology 12/23/22 09:00 Wound - Tissue Gram Stain - Final 12/23/22 09:00 Wound - Tissue Wound Culture - Preliminary Staphylococcus species 12/23/22 09:00 Wound - Tissue Anaerobic Culture - Preliminary Checking for anaerobes, further studies to follow. Physical Exam Narrative PHYSICAL EXAMINATION General - Alert and Oriented. HEENT - PERRL. EOMI. Neck - Supple and nontender. Abdomen - Soft and nondistended. Left inguinal and vulval wound - Stable. No active bleeding noted. Tolerated the Dakin's dressing change reasonably well with some scattered areas of pain when removing residual clot. Neuro - CN II-XII grossly intact. Psych - Normal mood and affect. Assessment & Plan Assessment/Plan (1) Hidradenitis: (2) Vulval hidradenitis suppurativa: (3) Non-healing open wound of left groin: (4) Open wound of vulva: (5) Smoker: PLAN: Plan Wound stable with no active bleeding noted. Tolerated the Dakin's dressing change reasonably well with some scattered areas of pain. She is steady on her feet with ambulation. Repeat Hgb was 11.6 after there was some oozing from the wound yesterday that was controlled with silver nitrate chemical cauterization. Prealbumin was 16.4. Encourage nutritional supplementation with protein to help the healing process. Operative culture shows Staphylococcus species thus far. Await final ID and sensitivity. Will discharge her on Augmentin. When the final culture is available, antibiotic modification may be necessary. Discharge home today. Wrote script for Percocet for pain (28 tabs), and for Valium (14 tabs), and for Phenergan. Followup Wound Center Wednesday12/30/22. Encouraged patient to stop smoking as it may have deleterious effects on wound healing.
--- NOTE | 2022-12-25 13:00 | PCM.DC ---
Discharge Instructions Diet Discharge Diet: Carb Control Diet (High protein diet) Activity Discharge Activity: May Shower May resume sexual activity in: 4-6 weeks Additional Activity Instructions:: 20 lb lifting restriction Dressing / Incision Call your doctor if your incision/area has: Continuous Slow Oozing, Sudden Increased Bleeding, Increased Pain/ Swelling, Increased Redness, Foul Smelling Discharge and Swelling at the incision site Call your doctor if you observe: Fever of 101 or Higher, Inability to urinate, Inability to have a bowel movement, Shortness of breath, Chest pain, Calf discomfort and Uncontrolled pain Change Dressing in: 1 day Cleanse incision/area with: Soap & Water Catheter: Dalton to leg bag and Dalton to large bag Additional Dressing/Incision Instructions:: Dakins 0.25% moistened gauze covered with ABD daily after washing area with soap and water. May shower and wash wound with soap and water. Follow Up Care Please Follow Up With: Richa Montemayor SPEECH AND LANGUAGE SPECIALIST, [facility] When: At the wound center on Wednesday12/30/22 at 10:00 am. If this time does not work for you call [phone] Test Results: Test results from this visit will be discussed in further detail at your follow-up appointment, if applicable. Discharge Plan Admission Admit Date/Time: 12/23/22 11:04 Attending Provider: César Franco Primary Care Provider: Anthony Pollard Discharge Orders/Prescriptions Prescriptions: New amoxicillin-pot clavulanate 875-125 mg tablet 1 tab PO Q12H 14 Days Qty: 28 0RF oxycodone-acetaminophen [Percocet] 5-325 mg tablet 1 tab PO 4X/DAY PRN PRN (Reason: pain (scale score 4-6)) 7 Days Qty: 28 0RF promethazine 25 mg tablet 25 mg PO TID PRN (Reason: nausea and vomiting) 5 Days Qty: 14 0RF diazepam [Valium] 5 mg tablet 5 mg PO BID PRN (Reason: muscle spasm) 7 Days Qty: 14 0RF Continued Dexilant 60 mg capsule,biphase delayed releas 60 mg PO QHS hydrocodone-acetaminophen [[place]] 7.5-325 mg tablet 1 tab PO Q6H Hold Instructions: Resume on 09/07/22. hold while taking percocet atorvastatin 10 mg tablet 10 mg PO QHS hydroxyzine HCl 25 mg tablet 25 mg PO BID PRN (Reason: anxiety) urea 40 % cream 1 applic topical BID bupropion HCl 150 mg tablet extended release 24 hr 150 mg PO QAM glucose Tablet,Chewable 4 g PO PRN PRN (Reason: hypoglycemia) Rx Instructions: may repeat once after 15 minutes if no response potassium citrate 15 mEq Tablet Extended Release 15 meq PO BID methocarbamol 750 mg Tablet 750 mg PO TID PRN (Reason: pain) ipratropium bromide 0.02 % Solution 2.5 ml INHALATION BID famotidine [Pepcid] 20 mg tablet 20 mg PO QHS quetiapine [Seroquel] 50 mg tablet 100 mg PO QHS prazosin [Minipress] 2 mg capsule 2 mg PO QHS Discontinued doxycycline hyclate 100 mg capsule 100 mg PO BID Qty: 60 1RF Referrals / Follow Up: Anthony Pollard MD [Primary Care Provider] - Disposition Disposition (needs filled in before D/C Order can be placed): Home, Self Care
--- NOTE | 2022-12-25 14:16 | CASEMGMT ---
Discussed [facility] appt with Richa Montemayor NP. Pt has appt on Wednesday at 10am, placed on dc instructions. RN CM into pt room, pt is aware of this. Pt and sig other state that he feels comfortable performing wound care until [facility] starts on Wednesday. States he was shown yesterday and today and has done in the past. Pt thankful that she was able to have the same agency as in the past. Pt denies further needs. Faxed dc instructions to [facility]
[2022-12-25 14:18] VITALS: BP 101/63; PULSE 78; RESP 16; TEMP 36.8; O2SAT 95
== END 2022-12-25 15:29 | disposition home or self-care (01) ==
LOC: SDC 11:19 → MS3 11:19
PROVIDERS: Admitting Provider Surgery; PCP Family Medicine; Referring Provider Surgery; Visit Provider Surgery
PROC: (CPT 11463; principal; 2022-12-23 07:15)
DX: L73.2 Hidradenitis suppurativa (principal); S31.40XA Unspecified open wound of vagina and vulva, initial encounter; E78.00 Pure hypercholesterolemia, unspecified; F17.210 Nicotine dependence, cigarettes, uncomplicated; X58.XXXA Exposure to other specified factors, initial encounter; M19.90 Unspecified osteoarthritis, unspecified site; K21.9 Gastro-esophageal reflux disease without esophagitis; I10 Essential (primary) hypertension; Z98.84 Bariatric surgery status; Z79.899 Other long term (current) drug therapy
CPT/HCPCS: 11463; 56630; 00904; 88305; J2405; 36415; 80048; 84134; 85027; 87070; 87075; 87077; 87102; 87176; 87186; 87205; 87206; 88304; 94640; 94668; 96365; 96366; 96372; 96375; 96376; 97802; 99221; 99252; 99406; J7040; J7050; J7120; A4216; G0378; G0463

== ENCOUNTER 2023-01-11 10:45 | Outpatient (RCR) | payer MEDICAID, SELFPAY ==
[2022-12-30 10:05] VITALS: BP 141/77; PULSE 75; RESP 16; TEMP 35.8; BMI 33.5
--- NOTE | 2022-12-30 11:10 | PCM.WC.HP ---
History of Present Illness Date of Service: 12/30/22 Chief Complaint: Surgical wound of left inguinal area and left vulval hidradentitis History of Wound: 57 year old female with a history of hidradenitis. She states she mostly gets flare ups in her left inguinal area and left vulval area extending from genitocrural crease to the labia. When she gets a flare up, she develops increasing redness and pain and swelling and occasional drainage. At present she denies fever. She denies trauma. She had a flare up of hidradenitis involving her right inguinal area and right vulval area that required surgery on 03/14/19 where she underwent surgical preparation right inguinal area with excision hidradenitis (50 cm2) and excision right vulval hidradenitis involving genitocrural area with partial vulvectomy including deep subcutaneous tissue (50 cm2). The wounds were left open and healed using wound care and antibiotics on 04/24/19. Surgery on 12/23/22 for surgical preparation left inguinal area with excision hidradenitis (combined 82.5 cm2) and surgical preparation left vulval area extending from genitocrural crease up to the labia with excision hidradenitis and radical partial vulvectomy including deep subcutaneous tissue (combined 82.5 cm2). Operative culture was positive for Staphylococcus lugdunensis, she is being treated with Doxycycline. Progress of Wound: Left inguinal and vulval wound is beefy pink. No signs of bleeding. Wound bed is beefy pink. She is having increased pain. She is having difficulty moving, walking, doing ADL's because her pain is so severe. She states it is 9/10. [facility] Medical History Ambulates with cane Anxiety and depression Arthritis At high risk for falls BiPAP (biphasic positive airway pressure) dependence Bladder disease Cardiology follow-up encounter Carpal tunnel syndrome DDD (degenerative disc disease) Difficult intravenous access Essential tremor Gait instability GERD (gastroesophageal reflux disease) Hidradenitis High blood pressure High cholesterol History of diverticulitis History of echocardiogram History of hiatal hernia History of rheumatic fever History of steroid therapy History of stress test History of urethral cyst Hx of hidradenitis suppurativa Hypoglycemia Injury of head and neck Intracranial hypertension Loss of hearing Low iron Migraine headache Neuropathy Non-healing open wound of left groin Non-healing open wound of right groin Open wound of vulva Osteoarthritis Pancreatitis Polycystic ovary Right renal stone Smoker Syncope Tinnitus of both ears Ureteral calculus, right Vulval hidradenitis suppurativa Wears dentures Wears glasses Home Medications atorvastatin 10 mg tablet 10 mg PO QHS 01/10/19 [History Last Taken Unknown] dexlansoprazole 60 mg capsule,biphase delayed release (Dexilant) 60 mg PO QHS 01/10/19 [History Last Taken Unknown] hydrocodone 7.5 mg-acetaminophen 325 mg tablet ([place]) 1 tab PO Q6H 01/10/19 [History Last Taken 12/23/22] potassium citrate 15 mEq (1,620 mg) tablet,extended release 15 meq PO BID 08/28/22 [History Last Taken Unknown] ipratropium bromide 0.02 % solution for inhalation 2.5 ml inhalation BID 09/03/22 [History Last Taken Unknown] methocarbamol 750 mg tablet 750 mg PO TID PRN pain 09/03/22 [History Last Taken Unknown] bupropion HCl 150 mg 24 hr tablet, extended release 150 mg PO QAM 11/16/22 [History Last Taken Unknown] glucose 4 g PO PRN PRN hypoglycemia 11/16/22 [History Last Taken Unknown] hydroxyzine HCl 25 mg tablet 25 mg PO BID PRN anxiety 11/16/22 [History Last Taken Unknown] urea 40 % topical cream 1 applic topical BID 11/16/22 [History Last Taken Unknown] famotidine 20 mg tablet (Pepcid) 20 mg PO QHS 12/16/22 [History Last Taken Unknown] prazosin 2 mg capsule (Minipress) 2 mg PO QHS 12/16/22 [History Last Taken Unknown] quetiapine 50 mg tablet (Seroquel) 100 mg PO QHS 12/16/22 [History Last Taken Unknown] amoxicillin 875 mg-potassium clavulanate 125 mg tablet 1 tab PO Q12H 14 days #28 tabs 12/25/22 [Rx Last Taken Unknown] diazepam 5 mg tablet (Valium) 5 mg PO BID PRN muscle spasm 7 days #14 tabs 12/25/22 [Rx Last Taken Unknown] oxycodone-acetaminophen 5 mg-325 mg tablet (Percocet) 1 tab PO 4X/DAY PRN PRN pain (scale score 4-6) 7 days #28 tabs 12/25/22 [Rx Last Taken Unknown] promethazine 25 mg tablet 25 mg PO TID PRN nausea and vomiting 5 days #14 tabs 12/25/22 [Rx Last Taken Unknown] doxycycline monohydrate 100 mg tablet 100 mg PO BID 14 days #28 tabs 12/30/22 [Rx Last Taken Unknown] hydromorphone 2 mg tablet (Dilaudid) 2 mg PO Q4H PRN pain (scale score 7-10) 7 days #40 tabs 12/30/22 [Rx Last Taken Unknown] Allergy/AdvReac Type Severity Reaction Status Date / Time duloxetine [From Cymbalta] Allergy ALLERGY Verified 12/30/22 10:15 Iodinated Contrast Media Allergy ALLERGY Verified 12/30/22 10:15 pregabalin [From Lyrica] Allergy ALLERGY Verified 12/30/22 10:15 ibuprofen AdvReac UNABLE TO Verified 12/30/22 10:15 TAKE AFTER GASTRIC BYPASS SURGERY morphine AdvReac Chest Verified 12/30/22 10:15 tightness Family History Son Alcoholism Psychiatric care Mother Anemia Anxiety Arthritis Cancer Depression Hypertension High cholesterol Skin cancer (melanoma) CVA (cerebral vascular accident) Thyroid disorder Suicide attempt Sister defect Cancer Hormone Problems Kidney disease Skin cancer (melanoma) Thyroid disorder Father Cancer Colon cancer Surgical History Gastric bypass status for obesity H/O cataract removal with insertion of prosthetic lens History of back surgery History of cardiac catheterization History of delivery History of esophagogastroduodenoscopy (EGD) History of laparoscopic cholecystectomy History of neck surgery History of shoulder surgery History of tonsillectomy and adenoidectomy Hx of abdominal surgery Hx of brain surgery Hx of colonoscopy Hx of cystoscopy Hx of exploratory laparotomy Hx of lymph node biopsy Hx of total hysterectomy Social History Smoking Status: Current every day smoker tobacco type: cigarettes counseling given: provider counseling and counseling >10 minutes alcohol intake: never substance use type: does not use additional social history: DOES NOT USE ASPIRIN DOES NOT USE IBUPROFEN ROS Constitutional Constitutional: Denies chills or fever(s) Eyes Eyes: Reports requires corrective lenses ENT HEENT: Denies headache(s) or nasal congestion Cardiovascular Cardiovascular: Denies chest pain or dyspnea Respiratory/Chest Respiratory/Chest: Denies cough Gastrointestinal Gastrointestinal: Denies diarrhea, nausea or vomiting Genitourinary Genitourinary: Reports other Details: currently has gomez catheter to prevent urine getting into the wound. Musculoskeletal Musculoskeletal: Reports joint stiffness Integumentary Integumentary: Reports wounds Neurologic Neurologic: Reports as per HPI Psychiatric Psychiatric: Reports as per HPI Endocrine Endocrinology: Reports as per HPI Hematologic/Lymphatic Hematologic/Lymphatic: Reports as per HPI Vital Signs Vital Signs Vital Signs: 12/30/22 10:05 Temperature 96.5 F L Temperature Source Temporal Pulse Rate 75 Respiratory Rate 16 Blood Pressure 141/77 H Blood Pressure Mean 98 Blood Pressure Source Monitor Blood Pressure Position Sitting Blood Pressure Location Right Arm Oxygen Delivery Method Room Air Weight Weight: 195 lb Body Mass Index (BMI) 33.5 Physical Exam Const alert and oriented x3 General Appearance: other uncomfortable due to the amount of pain she is experiencing HEENT normocephalic Eyes General Eye: normal appearance of both eyes Neck full ROM Resp normal respiratory effort, normal air movement and clear to auscultation bilaterally Effort and Inspection: able to speak in complete sentences Cardio regular rate and regular rhythm GI soft to palpation and non-tender Narrative: Gomez catheter in place, urine is clear. Bladder / Kidney Exam: catheter in place urethral Back/Spine Back/Spine Narrative: Decreased ROM from previous back issues. Extremity full ROM and normal capillary refill Neuro oriented x3 Psych thought process normal Debridement Note Debridement Note No debridement was completed: No debridement was completed today Post-Debridement Measurements and Additional Note: Post-Debridement Measurements/Treatment - Nurse 1 - General Ulcer Assessment Start: 12/30/22 10:04 Freq: Status: Active Protocol: SALEEM Activity Type Activity Date Activity User E-sign Co-sign Detail Recorded Client Recorded Date Recorded By Document 12/30/22 10:05 [facility] [id number] 12/30/22 10:15 [facility] 12/30/22 10:05 - Today's Visit Information Type of service Initial Visit Arrival Mode Ambulatory Transfer Assistance None Height and Weight Height 5 ft 4 in Weight 195 lb Weight in Pounds 195.0 lbs Weight Measurement Method Estimated by Patient Body Mass Index (BMI) 33.5 BMI Classification Obese BSA - [place] 1.94 Vital Signs Temperature (97.8 F-99.1 F) 96.5 F L Temperature Source Temporal Pulse Rate (60-100) 75 Pulse Location Monitor Respiratory Rate (12-18) 16 Respiratory rate source Observation Oxygen Delivery Method Room Air Blood Pressure (90/60-120/80) 141/77 H Blood Pressure Mean (mm Hg) 98 Source Monitor Position Sitting Blood Pressure Location Right Arm History Since Last Visit- (Skip if this is Patient's initial visit) Left Footwear Regular Shoe Right Footwear Regular Shoe Pain Scale: 0-10 Numeric Is Patient Pain Free? Yes Communication Assessment Preferred language Vietnamese Caramel Maker Required No Able to Read Yes Able to Write Yes Communication Tools None Right Hearing Abillity Normal Left Hearing Abillity Normal Visual Assistive Devices Glasses Teaching Assessment Preferences Verbal,Written, Audio/Visual, Demonstration Barriers to Learning None Readiness To Learn Excellent Willingness to Engage in Self Management High Activies Readiness to Engage in Self Management High Activities Anxiety Level Calm Cooperation Cooperative Perception Coherent Interest in Health Problem Asks Questions Education Importance Acknowledges Need Does Patient Smoke tobacco or other No substances Smoking Status Current every day smoker Is Patient Diabetic No Functional Assessment Recent Decline in Ability to Perform Denies Any Declines Culture/Jehovah'S Witness/Database Development Project Manager Cultural/Jehovah'S Witness Needs that may affect No Treatment Plan Teaching: Wound Center Welcome to the Wound Care Center English YEAGER - Nurse 1 - General Ulcer Measurement Start: 12/30/22 10:04 Freq: Status: Active Protocol: Activity Type Activity Date Activity User E-sign Co-sign Detail Recorded Client Recorded Date Recorded By Document 12/30/22 10:05 [facility] [id number] 12/30/22 10:15 [facility] 12/30/22 10:05 Wound Center Nurse 1 #2- L GROIN -Current Size (cm) - Length 14.7 -Current Size (cm) - Width 2.7 -Current Size (cm) - Depth 2.9 -Total Square Cm 39.69 -Date of Last Picture (Recall this 12/30/22 field) -Photo Taken Yes -Epithelialization None Present -Tunneling No -Undermining/Tunneling No -Circular Undermining No -Exudate Amt Medium -Exudate Type Serosanguineous -Wound Margin Distinct, Outline Attached -Granulation Amt Large (67-100%) -Granulation Quality Red -Slough/Fibrin Yes -Necrosis Amt Small (1-33%) -Necrotic Tissue Type Adherent Slough -Texture (Gladys-wound Skin Appearance) Assessed, Scarring -Moisture (Gladys-wound Skin Appearance) Assessed -Color (Gladys-wound Skin Appearance) Assessed -Temperature (Gladys-wound Skin No Abnormality Appearance) (Pt Warm) -Tenderness on Palpation (Gladys-wound Yes Skin Appearance) -Ulcer Cleansing Soap and Water -Anesthetic Used 4% Lidocaine Solution - Nurse 2 - General Ulcer CM Notes Start: 12/30/22 10:04 Freq: Status: Active Protocol: Activity Type Activity Date Activity User E-sign Co-sign Detail Recorded Client Recorded Date Recorded By Document 12/30/22 10:26 [id number] 12/30/22 10:29 12/30/22 10:26 Wound Center Nurse 2 -Correct Patient No -Correct Side, Site, Position No -Correct Procedure No -Procedure Performed No -Wound/Ulcer Outcome Not Healed Pain Scale: 0-10 Numeric Is Patient Pain Free? Yes - Nurse 3 - General Ulcer D/C NN Start: 12/30/22 10:04 Freq: Status: Active Protocol: Activity Type Activity Date Activity User E-sign Co-sign Detail Recorded Client Recorded Date Recorded By Document 12/30/22 10:29 [id number] 12/30/22 10:30 12/30/22 10:29 Wound Care Center Nurse 3 #2- L GROIN -Ulcer Cleansing Rinsed/ Irrigated with Saline -Foul Odor after Cleansing No -Other Dressing 0.25% dakin's solution -Primary Dressing Covered/Secured with Dry Gauze & Roll Gauze, Secured with Tape Pain Scale: 0-10 Numeric Is Patient Pain Free? Yes - Visit Discharge Discharge Condition Stable Ambulatory Status Ambulatory Transportation Private Auto Accompanied by friend Medication Reconcilliation completed & Yes provided to patient/care provider Clinical Summary of Care Provided Yes Charges/Coding Procedures Integumentary [id number]: [id number] Global Visit Assessment/Plan Assessment/Plan (1) Open wound of vulva: CODE(S): S31.40XA - Unspecified open wound of vagina and vulva, initial encounter (2) Non-healing open wound of left groin: CODE(S): S31.104A - Unspecified open wound of abdominal wall, left lower quadrant without penetration into peritoneal cavity, initial encounter (3) Hidradenitis: CODE(S): L73.2 - Hidradenitis suppurativa (4) Vulval hidradenitis suppurativa: CODE(S): L73.2 - Hidradenitis suppurativa (5) Other acute postprocedural pain: CODE(S): G89.18 - Other acute postprocedural pain (6) Smoker: CODE(S): F17.200 - Nicotine dependence, unspecified, uncomplicated PLAN: Plan Patient evaluated at the wound healing center. No debridement was performed today. Wound care - Dakins 0.25% moistened gauze topped with ABD daily and as needed. Operative wound culture positive for Staphylococcus lugdunensis. She was initially started on Augmentin upon discharge from the hospital, but now that the culture results are in will switch her to Doxycycline. She is having significant amount of pain. She states that the Percocet are not helping. Her pain is currently 9/10. She looks very uncomfortable. Will stop the Percocet and start her on Dilaudid 2 mg every 4 hours as needed for pain (40 tabs). She was instructed she could alternate with acetaminophen every 6 hours. She needs to notify her pain management to let them know about the pain medications that she is receiving. Follow up on week. Instructed her to call if she develops any concerns.
[2023-01-04 10:35] VITALS: BP 126/72; PULSE 67; RESP 16; TEMP 35.9; BMI 33.5
--- NOTE | 2023-01-04 12:35 | PCM.WC.PN ---
History of Present Illness Date of Service: 01/04/23 Chief Complaint: Surgical wound of left inguinal area and left vulval hidradentitis History of Wound: 57 year old female with a history of hidradenitis. She states she mostly gets flare ups in her left inguinal area and left vulval area extending from genitocrural crease to the labia. When she gets a flare up, she develops increasing redness and pain and swelling and occasional drainage. At present she denies fever. She denies trauma. She had a flare up of hidradenitis involving her right inguinal area and right vulval area that required surgery on 03/14/19 where she underwent surgical preparation right inguinal area with excision hidradenitis (50 cm2) and excision right vulval hidradenitis involving genitocrural area with partial vulvectomy including deep subcutaneous tissue (50 cm2). The wounds were left open and healed using wound care and antibiotics on 04/24/19. Surgery on 12/23/22 for surgical preparation left inguinal area with excision hidradenitis (combined 82.5 cm2) and surgical preparation left vulval area extending from genitocrural crease up to the labia with excision hidradenitis and radical partial vulvectomy including deep subcutaneous tissue (combined 82.5 cm2). Operative culture was positive for Staphylococcus lugdunensis, she is being treated with Doxycycline. Progress of Wound: Left inguinal and vulval wound is beefy pink and is smaller in size. No signs of bleeding. Her pain is under better control. She states she is having a lot of burning pain in her left groin area. Objective Data Objective Data Vital Signs: Vital Signs Temp Pulse Resp BP O2 Del Method 96.6 F L 67 16 126/72 H Room Air 01/04/23 10:35 01/04/23 10:35 01/04/23 10:35 01/04/23 10:35 01/04/23 10:35 Oxygen Delivery Method Room Air Weight: 195 lb Body Mass Index (BMI) 33.5 Charges/Coding Procedures Integumentary 111xxx-113xx: 08415 Global Visit Debridement Note Debridement Note Wound debrided: inguinal area/left vulval extending from genitocrural crease up to labia Laterality: Left Wound Grade/Stage: Stage IV Type of Debridement: Excisional debridement Anesthesia Used: 5% Lidocaine Gel Depth: Down to and including healthy tissue, in the subcutaneous layer and to muscle Percentage of wound debrided: 100 Instrument Used: 7mm curette Tissue Removed: Non viable tissue and slough Severity: Fat Layer Exposed Amount of bleeding with debridement: Mild Bleeding Controlled with: Pressure and Compression and gauze Patient tolerated procedure: Patient tolerated procedure well Post-Debridement Measurements and Additional Note: Post-Debridement Measurements/Treatment - Nurse 1 - General Ulcer Assessment Start: 12/30/22 10:04 Freq: Status: Active Protocol: SALEEM Activity Type Activity Date Activity User E-sign Co-sign Detail Recorded Client Recorded Date Recorded By Document 12/30/22 10:05 [facility] [id number] 12/30/22 10:15 [facility] Document 01/04/23 10:35 [facility] [id number] 01/04/23 10:46 [facility] 12/30/22 01/04/23 10:05 10:35 - Today's Visit Information Type of service Initial Visit Follow-up Visit (Physician/CHIEF OF SERVICE ) Arrival Mode Ambulatory Ambulatory,Cane Transfer Assistance None None Accompanied by friend Patient Identification Verified (Name & Yes ) Patient Requires Transmission-Based No Precautions Height and Weight Height 5 ft 4 in Weight 195 lb Weight in Pounds 195.0 lbs Weight Measurement Method Estimated by Patient Body Mass Index (BMI) 33.5 33.5 BMI Classification Obese Obese BSA - Tawanna 1.94 Vital Signs Temperature (97.8 F-99.1 F) 96.5 F L 96.6 F L Temperature Source Temporal Temporal Pulse Rate (60-100) 75 67 Pulse Location Monitor Monitor Respiratory Rate (12-18) 16 16 Respiratory rate source Observation Observation Oxygen Delivery Method Room Air Room Air Blood Pressure (90/60-120/80) 141/77 H 126/72 H Blood Pressure Mean (mm Hg) 98 90 Source Monitor Monitor Position Sitting Sitting Blood Pressure Location Right Arm Left Arm History Since Last Visit- (Skip if this is Patient's initial visit) Have you changed medications since your No last visit? Any new allergies or adverse reactions No Had a fall/change in ADL's that may No increase risk of falls Signs or symptoms of abuse and/or No neglect since last visit Have you been in the hospital since your No last visit? Has dressing in place as prescribed Yes Has compression in place as prescribed N/A Has offloadiing in place as prescribed N/A Experienced any changes in pain level or No management Left Footwear Regular Shoe Regular Shoe Right Footwear Regular Shoe Regular Shoe Pain Scale: 0-10 Numeric Is Patient Pain Free? Yes Yes Communication Assessment Preferred language Russian Mottle Lay Up Operator Required No Able to Read Yes Able to Write Yes Communication Tools None Right Hearing Abillity Normal Left Hearing Abillity Normal Visual Assistive Devices Glasses Teaching Assessment Preferences Verbal,Written, Audio/Visual, Demonstration Barriers to Learning None Readiness To Learn Excellent Willingness to Engage in Self Management High Activies Readiness to Engage in Self Management High Activities Anxiety Level Calm Cooperation Cooperative Perception Coherent Interest in Health Problem Asks Questions Education Importance Acknowledges Need Does Patient Smoke tobacco or other No substances Smoking Status Current every day smoker Is Patient Diabetic No Functional Assessment Recent Decline in Ability to Perform Denies Any Declines Culture/Muslim/Cellophaner Cultural/Muslim Needs that may affect No Treatment Plan Teaching: Wound Center Welcome to the Wound Care Center English YEAGER - Nurse 1 - General Ulcer Measurement Start: 12/30/22 10:04 Freq: Status: Active Protocol: Activity Type Activity Date Activity User E-sign Co-sign Detail Recorded Client Recorded Date Recorded By Document 12/30/22 10:05 [facility] [id number] 12/30/22 10:15 [facility] Document 01/04/23 10:35 [facility] [id number] 01/04/23 10:46 [facility] 12/30/22 01/04/23 10:05 10:35 Wound Center Nurse 1 #2- L GROIN -Combined with other wound No -Current Size (cm) - Length 14.7 15 -Current Size (cm) - Width 2.7 1.5 -Current Size (cm) - Depth 2.9 1.3 -Total Square Cm 39.69 22.5 -Date of Last Picture (Recall this 12/30/22 field) -Photo Taken Yes No -Epithelialization None Present Small 1-33% -Tunneling No No -Undermining/Tunneling No Yes -Undermining/Tunneling Starts (O'clock 1 ) -Undermining/Tunneling Ends (O'clock) 5 -Maximum Distance (cm) 1.4 -Circular Undermining No -Exudate Amt Medium Large -Exudate Type Serosanguineous Serosanguineous -Wound Margin Distinct, Distinct, Outline Outline Attached Attached -Granulation Amt Large (67-100%) Large (67-100%) -Granulation Quality Red Red -Slough/Fibrin Yes Yes -Necrosis Amt Small (1-33%) Small (1-33%) -Necrotic Tissue Type Adherent Slough Adherent Slough -Texture (Gladys-wound Skin Appearance) Assessed, Assessed, Scarring Scarring -Moisture (Gladys-wound Skin Appearance) Assessed Assessed -Color (Gladys-wound Skin Appearance) Assessed Assessed -Temperature (Gladys-wound Skin No Abnormality No Abnormality Appearance) (Pt Warm) (Pt Warm) -Tenderness on Palpation (Gladys-wound Yes No Skin Appearance) -Ulcer Cleansing Soap and Water Soap and Water -Foul Odor after Cleansing No -Anesthetic Used 4% Lidocaine 4% Lidocaine Solution Solution WC - Nurse 2 - General Ulcer CM Notes Start: 12/30/22 10:04 Freq: Status: Active Protocol: Activity Type Activity Date Activity User E-sign Co-sign Detail Recorded Client Recorded Date Recorded By Document 12/30/22 10:26 [id number] 12/30/22 10:29 Document 01/04/23 11:01 [id number] 01/04/23 11:06 12/30/22 01/04/23 10:26 11:01 Wound Center Nurse 2 #2- L GROIN -Time 11:02 -Correct Patient No Yes -Correct Side, Site, Position No Yes -Correct Procedure No Yes -Procedure Performed No Yes -Type of Procedure Debridement -Clinical Debridement Muscle / Fascia -Tissue Removed Muscle,Fascia -Post Debridement (cm) - Length 13.2 -Post Debridement (cm) - Width 3.5 -Post Debridement (cm) - Depth 1.8 -Total Square (Post) (cm) 46.20 -Area of Debridement (cm) - Length 13.2 -Area of Debridement (cm) - Width 3.5 -Total Square (Area) (cm) 46.20 -Tunneling No -Undermining/Tunneling No -Circular Undermining No -Wound/Ulcer Outcome Not Healed Not Healed -Ulcer Cleansing Rinsed/ Irrigated with Saline -Foul Odor after Cleansing No -Bioengineered Tissue No -Bleeding Controlled with Pressure -Treatment Response Procedure Tolerated Well -Offloading No -Debridement - Muscle / Fascia, 1st Yes 20sq cm -Debridement, Muscle/Fascia, ea addt'l 2 20sq cm or part thereof Pain Scale: 0-10 Numeric Is Patient Pain Free? Yes Yes - Nurse 3 - General Ulcer D/C NN Start: 12/30/22 10:04 Freq: Status: Active Protocol: Activity Type Activity Date Activity User E-sign Co-sign Detail Recorded Client Recorded Date Recorded By Document 12/30/22 10:29 [id number] 12/30/22 10:30 Document 01/04/23 11:30 [facility] [id number] 01/04/23 11:31 [facility] 12/30/22 01/04/23 10:29 11:30 Wound Care Center Nurse 3 #2- L GROIN -Ulcer Cleansing Rinsed/ Rinsed/ Irrigated with Irrigated with Saline Saline -Foul Odor after Cleansing No No -Primary Dressing Applied Hysept ($) -Other Dressing 0.25% dakin's abd solution -Primary Dressing Covered/Secured with Dry Gauze & Secured with Roll Gauze, Tape Secured with Tape Treatment Response Procedure Tolerated Well Pain Scale: 0-10 Numeric Is Patient Pain Free? Yes Yes - Visit Discharge Discharge Condition Stable Stable Ambulatory Status Ambulatory Ambulatory,Cane Transportation Private Auto Private Auto Accompanied by friend friend Medication Reconcilliation completed & Yes provided to patient/care provider Clinical Summary of Care Provided Yes Assessment/Plan Assessment/Plan (1) Open wound of vulva: CODE(S): S31.40XA - Unspecified open wound of vagina and vulva, initial encounter (2) Non-healing open wound of left groin: CODE(S): S31.104A - Unspecified open wound of abdominal wall, left lower quadrant without penetration into peritoneal cavity, initial encounter (3) Hidradenitis: CODE(S): L73.2 - Hidradenitis suppurativa (4) Vulval hidradenitis suppurativa: CODE(S): L73.2 - Hidradenitis suppurativa (5) Other acute postprocedural pain: CODE(S): G89.18 - Other acute postprocedural pain (6) Smoker: CODE(S): F17.200 - Nicotine dependence, unspecified, uncomplicated PLAN: Plan Patient evaluated at the wound healing center. Wound care - Dakins 0.25% moistened gauze topped with ABD daily and as needed. Operative wound culture positive for Staphylococcus lugdunensis. She is being treated with Doxycycline. Start Gabapentin BID for her burning pain. Follow up on week. Instructed her to call if she develops any concerns.
[2023-01-11 10:36] VITALS: BP 119/77; PULSE 74; RESP 20; TEMP 35.9; BMI 33.5
--- NOTE | 2023-01-11 12:02 | PCM.WC.PN ---
History of Present Illness Date of Service: 01/11/23 Chief Complaint: Surgical wound of left inguinal area and left vulval hidradentitis History of Wound: 57 year old female with a history of hidradenitis. She states she mostly gets flare ups in her left inguinal area and left vulval area extending from genitocrural crease to the labia. When she gets a flare up, she develops increasing redness and pain and swelling and occasional drainage. At present she denies fever. She denies trauma. She had a flare up of hidradenitis involving her right inguinal area and right vulval area that required surgery on 03/14/19 where she underwent surgical preparation right inguinal area with excision hidradenitis (50 cm2) and excision right vulval hidradenitis involving genitocrural area with partial vulvectomy including deep subcutaneous tissue (50 cm2). The wounds were left open and healed using wound care and antibiotics on 04/24/19. Surgery on 12/23/22 for surgical preparation left inguinal area with excision hidradenitis (combined 82.5 cm2) and surgical preparation left vulval area extending from genitocrural crease up to the labia with excision hidradenitis and radical partial vulvectomy including deep subcutaneous tissue (combined 82.5 cm2). Operative culture was positive for Staphylococcus lugdunensis, she is being treated with Doxycycline. Progress of Wound: Left inguinal and vulval wound is beefy pink and is smaller in size. No signs of bleeding. Her pain is under better control. She states the gabapentin has been helping her burning pain. She has concerns that she has a new hydradenitis sore on her vulva just medial to her wound. It is pink and tender but not angry red, no drainage present. Objective Data Objective Data Vital Signs: Vital Signs Temp Pulse Resp BP O2 Del Method 96.6 F L 74 20 H 119/77 Room Air 01/11/23 10:36 01/11/23 10:36 01/11/23 10:36 01/11/23 10:36 01/04/23 10:35 Oxygen Delivery Method Room Air Weight: 195 lb Body Mass Index (BMI) 33.5 Charges/Coding Procedures Integumentary 111xxx-113xx: 21017 Global Visit Debridement Note Debridement Note Wound debrided: inguinal area/left vulval extending from genitocrural crease up to labia Laterality: Left Wound Grade/Stage: Stage IV Type of Debridement: Excisional debridement Anesthesia Used: 5% Lidocaine Gel Depth: Down to and including healthy tissue, in the subcutaneous layer and to muscle Percentage of wound debrided: 100 Instrument Used: 7mm curette Tissue Removed: Non viable tissue and slough Severity: Fat Layer Exposed Amount of bleeding with debridement: Mild Bleeding Controlled with: Pressure and Compression and gauze Patient tolerated procedure: Patient tolerated procedure well Post-Debridement Measurements and Additional Note: Post-Debridement Measurements/Treatment - Nurse 1 - General Ulcer Assessment Start: 12/30/22 10:04 Freq: Status: Active Protocol: SHOBHA.Find That FileGIORGIO Activity Type Activity Date Activity User E-sign Co-sign Detail Recorded Client Recorded Date Recorded By Document 12/30/22 10:05 [facility] [id number] 12/30/22 10:15 [facility] Document 01/04/23 10:35 [facility] [id number] 01/04/23 10:46 [facility] Document 01/11/23 10:36 DL [id number] 01/11/23 10:44 DL 12/30/22 01/04/23 01/11/23 10:05 10:35 10:36 - Today's Visit Information Type of service Initial Visit Follow-up Visit Follow-up Visit (Physician/RESEARCH GROUP DIRECTOR (Physician/RESEARCH GROUP DIRECTOR ) ) Arrival Mode Ambulatory Ambulatory,Cane Ambulatory,Cane Transfer Assistance None None None Accompanied by friend Patient Identification Verified (Name & Yes Yes ) Patient Requires Transmission-Based No No Precautions Height and Weight Height 5 ft 4 in Weight 195 lb Weight in Pounds 195.0 lbs Weight Measurement Method Estimated by Patient Body Mass Index (BMI) 33.5 33.5 33.5 BMI Classification Obese Obese Obese BSA - Tawanna 1.94 Vital Signs Temperature (97.8 F-99.1 F) 96.5 F L 96.6 F L 96.6 F L Temperature Source Temporal Temporal Temporal Pulse Rate (60-100) 75 67 74 Pulse Location Monitor Monitor Monitor Respiratory Rate (12-18) 16 16 20 H Respiratory rate source Observation Observation Observation Oxygen Delivery Method Room Air Room Air Blood Pressure (90/60-120/80) 141/77 H 126/72 H 119/77 Blood Pressure Mean (mm Hg) 98 90 91 Source Monitor Monitor Monitor Position Sitting Sitting Blood Pressure Location Right Arm Left Arm History Since Last Visit- (Skip if this is Patient's initial visit) Have you changed medications since your No No last visit? Any new allergies or adverse reactions No No Had a fall/change in ADL's that may No No increase risk of falls Signs or symptoms of abuse and/or No No neglect since last visit Have you been in the hospital since your No No last visit? Has dressing in place as prescribed Yes Yes Has compression in place as prescribed N/A N/A Has offloadiing in place as prescribed N/A N/A Experienced any changes in pain level or No No management Left Footwear Regular Shoe Regular Shoe Right Footwear Regular Shoe Regular Shoe Pain Scale: 0-10 Numeric Is Patient Pain Free? 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 No Able to Read Yes Able to Write Yes Communication Tools None Right Hearing Abillity Normal Left Hearing Abillity Normal Visual Assistive Devices Glasses Teaching Assessment Preferences Verbal,Written, Audio/Visual, Demonstration Barriers to Learning None Readiness To Learn Excellent Willingness to Engage in Self Management High Activies Readiness to Engage in Self Management High Activities Anxiety Level Calm Cooperation Cooperative Perception Coherent Interest in Health Problem Asks Questions Education Importance Acknowledges Need Does Patient Smoke tobacco or other No substances Smoking Status Current every day smoker Is Patient Diabetic No Functional Assessment Recent Decline in Ability to Perform Denies Any Declines Culture/Mu-Ism/Spray Painting Machine Operator Cultural/Mu-Ism Needs that may affect No Treatment Plan Teaching: Wound Center Welcome to the Wound Care Center English YEAGER - Nurse 1 - General Ulcer Measurement Start: 12/30/22 10:04 Freq: Status: Active Protocol: Activity Type Activity Date Activity User E-sign Co-sign Detail Recorded Client Recorded Date Recorded By Document 12/30/22 10:05 [facility] [id number] 12/30/22 10:15 [facility] Document 01/04/23 10:35 [facility] [id number] 01/04/23 10:46 [facility] Document 01/11/23 10:36 DL [id number] 01/11/23 10:44 DL 12/30/22 01/04/23 01/11/23 10:05 10:35 10:36 Wound Center Nurse 1 #2- L GROIN -Combined with other wound No -Current Size (cm) - Length 14.7 15 11.5 -Current Size (cm) - Width 2.7 1.5 2.7 -Current Size (cm) - Depth 2.9 1.3 1.4 -Total Square Cm 39.69 22.5 31.05 -Date of Last Picture (Recall this 12/30/22 field) -Photo Taken Yes No -Epithelialization None Present Small 1-33% -Tunneling No No -Undermining/Tunneling No Yes -Undermining/Tunneling Starts (O'clock 1 ) -Undermining/Tunneling Ends (O'clock) 5 -Maximum Distance (cm) 1.4 -Circular Undermining No -Exudate Amt Medium Large Medium -Exudate Type Serosanguineous Serosanguineous -Wound Margin Distinct, Distinct, Distinct, Outline Outline Outline Attached Attached Attached -Granulation Amt Large (67-100%) Large (67-100%) Large (67-100%) -Granulation Quality Red Red Red -Slough/Fibrin Yes Yes -Necrosis Amt Small (1-33%) Small (1-33%) None Present (0 %) -Necrotic Tissue Type Adherent Slough Adherent Slough -Structure Exposed N/A -Texture (Gladys-wound Skin Appearance) Assessed, Assessed, Scarring Scarring Scarring -Moisture (Gladys-wound Skin Appearance) Assessed Assessed No Abnormality -Color (Gladys-wound Skin Appearance) Assessed Assessed No Abnormality -Temperature (Gladys-wound Skin No Abnormality No Abnormality No Abnormality Appearance) (Pt Warm) (Pt Warm) (Pt Warm) -Tenderness on Palpation (Gladys-wound Yes No Skin Appearance) -Ulcer Cleansing Soap and Water Soap and Water Soap and Water -Foul Odor after Cleansing No No -Anesthetic Used 4% Lidocaine 4% Lidocaine 5% Lidocaine Solution Solution Gel WC - Nurse 2 - General Ulcer CM Notes Start: 12/30/22 10:04 Freq: Status: Active Protocol: Activity Type Activity Date Activity User E-sign Co-sign Detail Recorded Client Recorded Date Recorded By Document 12/30/22 10:26 LUIS DANI[facility] [id number] 12/30/22 10:29 Document 01/04/23 11:01 LUIS DANIEL [id number] 01/04/23 11:06 Document 01/11/23 11:09 LUIS DANIEL [id number] 01/11/23 11:13 JF 12/30/22 01/04/23 01/11/23 10:26 11:01 11:09 Wound Center Nurse 2 #2- L GROIN -Time 11:02 11:09 -Correct Patient No Yes Yes -Correct Side, Site, Position No Yes Yes -Correct Procedure No Yes Yes -Procedure Performed No Yes Yes -Type of Procedure Debridement Debridement -Clinical Debridement Muscle / Fascia Muscle / Fascia -Tissue Removed Muscle,Fascia Muscle,Fascia -Post Debridement (cm) - Length 13.2 11.7 -Post Debridement (cm) - Width 3.5 3.0 -Post Debridement (cm) - Depth 1.8 0.8 -Total Square (Post) (cm) 46.20 35.10 -Area of Debridement (cm) - Length 13.2 11.7 -Area of Debridement (cm) - Width 3.5 3.0 -Total Square (Area) (cm) 46.20 35.10 -Tunneling No No -Undermining/Tunneling No No -Circular Undermining No No -Wound/Ulcer Outcome Not Healed Not Healed Not Healed -Ulcer Cleansing Rinsed/ Rinsed/ Irrigated with Irrigated with Saline Saline -Foul Odor after Cleansing No No -Bioengineered Tissue No No -Bleeding Controlled with Pressure Pressure -Treatment Response Procedure Procedure Tolerated Well Tolerated Well -Offloading No No -Debridement - Muscle / Fascia, 1st Yes Yes 20sq cm -Debridement, Muscle/Fascia, ea addt'l 2 1 20sq cm or part thereof Pain Scale: 0-10 Numeric Is Patient Pain Free? Yes Yes Yes - Nurse 3 - General Ulcer D/C NN Start: 12/30/22 10:04 Freq: Status: Active Protocol: Activity Type Activity Date Activity User E-sign Co-sign Detail Recorded Client Recorded Date Recorded By Document 12/30/22 10:29 [id number] 12/30/22 10:30 Document 01/04/23 11:30 [facility] [id number] 01/04/23 11:31 BM Document 01/11/23 11:27 DL [id number] 01/11/23 11:29 DL 12/30/22 01/04/23 01/11/23 10:29 11:30 11:27 Wound Care Center Nurse 3 #2- L GROIN -Ulcer Cleansing Rinsed/ Rinsed/ Rinsed/ Irrigated with Irrigated with Irrigated with Saline Saline Saline -Foul Odor after Cleansing No No No -Primary Dressing Applied Hysept ($) Hysept ($) -Other Dressing 0.25% dakin's abd solution -Primary Dressing Covered/Secured with Dry Gauze & Secured with Dry Gauze, Roll Gauze, Tape Secured with Secured with Tape Tape Treatment Response Procedure Procedure Tolerated Well Tolerated Well Pain Scale: 0-10 Numeric Is Patient Pain Free? Yes Yes Yes WC - Visit Discharge Discharge Condition Stable Stable Stable Ambulatory Status Ambulatory Ambulatory,Cane Ambulatory Transportation Private Auto Private Auto Private Auto Accompanied by friend friend Medication Reconcilliation completed & Yes provided to patient/care provider Clinical Summary of Care Provided Yes Facility Type Home Health Orders Sent Yes Assessment/Plan Assessment/Plan (1) Open wound of vulva: CODE(S): S31.40XA - Unspecified open wound of vagina and vulva, initial encounter (2) Non-healing open wound of left groin: CODE(S): S31.104A - Unspecified open wound of abdominal wall, left lower quadrant without penetration into peritoneal cavity, initial encounter (3) Hidradenitis: CODE(S): L73.2 - Hidradenitis suppurativa (4) Vulval hidradenitis suppurativa: CODE(S): L73.2 - Hidradenitis suppurativa (5) Other acute postprocedural pain: CODE(S): G89.18 - Other acute postprocedural pain (6) Smoker: CODE(S): F17.200 - Nicotine dependence, unspecified, uncomplicated PLAN: Plan Patient evaluated at the wound healing center. Wound care - Dakins 0.25% moistened gauze topped with ABD daily and as needed. Operative wound culture positive for Staphylococcus lugdunensis. She is being treated with Doxycycline. Tolerating Gabapentin well with decrease in the burning pain. Follow up two weeks. Home health can see her 3 times per week next week. Instructed her to call if she develops any concerns.
== END 2023-01-21 23:59 | disposition home or self-care (01) ==
LOC: WC 10:45
PROVIDERS: PCP Family Medicine; Referring Provider Surgery; Visit Provider Nurse Practitioner Family
DX: S31.40XA Unspecified open wound of vagina and vulva, initial encounter (principal); S31.104A Unspecified open wound of abdominal wall, left lower quadrant without penetration into peritoneal cavity, initial encounter; L73.2 Hidradenitis suppurativa; G89.18 Other acute postprocedural pain; I10 Essential (primary) hypertension; E78.00 Pure hypercholesterolemia, unspecified; K21.9 Gastro-esophageal reflux disease without esophagitis; F17.210 Nicotine dependence, cigarettes, uncomplicated; Z79.899 Other long term (current) drug therapy
CPT/HCPCS: 11043; 11046; 99214; G0463

== ENCOUNTER 2023-02-17 10:45 | Outpatient (RCR) | payer MEDICAID, SELFPAY ==
[2023-01-22 00:21] VITALS: BP 119/77; PULSE 74; RESP 20; TEMP 35.9; BMI 33.5
[2023-01-27 11:05] VITALS: BP 111/82; PULSE 73; RESP 16; TEMP 36; BMI 33.5
--- NOTE | 2023-01-27 12:43 | PCM.WC.PN ---
History of Present Illness Date of Service: 01/27/23 Chief Complaint: Surgical wound of left inguinal area and left vulval hidradentitis History of Wound: 57 year old female with a history of hidradenitis. She states she mostly gets flare ups in her left inguinal area and left vulval area extending from genitocrural crease to the labia. When she gets a flare up, she develops increasing redness and pain and swelling and occasional drainage. At present she denies fever. She denies trauma. She had a flare up of hidradenitis involving her right inguinal area and right vulval area that required surgery on 03/14/19 where she underwent surgical preparation right inguinal area with excision hidradenitis (50 cm2) and excision right vulval hidradenitis involving genitocrural area with partial vulvectomy including deep subcutaneous tissue (50 cm2). The wounds were left open and healed using wound care and antibiotics on 04/24/19. Surgery on 12/23/22 for surgical preparation left inguinal area with excision hidradenitis (combined 82.5 cm2) and surgical preparation left vulval area extending from genitocrural crease up to the labia with excision hidradenitis and radical partial vulvectomy including deep subcutaneous tissue (combined 82.5 cm2). Operative culture was positive for Staphylococcus lugdunensis, she is being treated with Doxycycline. Progress of Wound: Left inguinal and vulval wound is beefy pink and is much smaller in size. No signs of bleeding. The area where she had a new outbreak of a hydradenitis sore on her vulva just medial to her wound drained and has healed. Objective Data Objective Data Vital Signs: Vital Signs Temp Pulse Resp BP O2 Del Method 96.8 F L 73 16 111/82 H Room Air 01/27/23 11:05 01/27/23 11:05 01/27/23 11:05 01/27/23 11:05 01/27/23 11:05 Oxygen Delivery Method Room Air Weight: 195 lb Body Mass Index (BMI) 33.5 Charges/Coding Procedures Integumentary 111xxx-113xx: 60334 Global Visit Debridement Note Debridement Note Wound debrided: inguinal area/left vulval extending from genitocrural crease up to labia Laterality: Left Wound Grade/Stage: Stage IV Type of Debridement: Excisional debridement Anesthesia Used: 5% Lidocaine Gel Depth: Down to and including healthy tissue and in the subcutaneous layer Percentage of wound debrided: 100 Instrument Used: 5mm curette Tissue Removed: Non viable tissue and slough Severity: Fat Layer Exposed Amount of bleeding with debridement: Mild Bleeding Controlled with: Pressure and Compression and gauze Patient tolerated procedure: Patient tolerated procedure well Post-Debridement Measurements and Additional Note: Post-Debridement Measurements/Treatment SHOBHA - Nurse 1 - General Ulcer Assessment Start: 01/27/23 11:05 Freq: Status: Active Protocol: SALEEM Activity Type Activity Date Activity User E-sign Co-sign Detail Recorded Client Recorded Date Recorded By Document 01/27/23 11:05 YUE [id number] 01/27/23 11:17 YUE 01/27/23 11:05 SHOBHA - Today's Visit Information Type of service Follow-up Visit (Physician/MEDICAL TRANSCRIPTION EDITOR ) Arrival Mode Ambulatory,Cane Accompanied by Patient Identification Verified (Name & Yes ) Height and Weight Body Mass Index (BMI) 33.5 BMI Classification Obese Vital Signs Temperature (97.8 F-99.1 F) 96.8 F L Temperature Source Temporal Pulse Rate (60-100) 73 Pulse Location Monitor Respiratory Rate (12-18) 16 Respiratory rate source Observation Oxygen Delivery Method Room Air Blood Pressure (90/60-120/80) 111/82 H Blood Pressure Mean (mm Hg) 91 Source Monitor Position Sitting Blood Pressure Location Left Arm History Since Last Visit- (Skip if this is Patient's initial visit) Have you changed medications since your No last visit? Any new allergies or adverse reactions No Had a fall/change in ADL's that may No increase risk of falls Signs or symptoms of abuse and/or No neglect since last visit Have you been in the hospital since your No last visit? Has dressing in place as prescribed Yes Has compression in place as prescribed N/A Has offloadiing in place as prescribed N/A Experienced any changes in pain level or No management Left Footwear Regular Shoe Right Footwear Regular Shoe Pain Scale: 0-10 Numeric Is Patient Pain Free? Yes SHOBHA Vo Nurse 1 - General Ulcer Measurement Start: 01/27/23 11:05 Freq: Status: Active Protocol: Activity Type Activity Date Activity User E-sign Co-sign Detail Recorded Client Recorded Date Recorded By Document 01/27/23 11:05 [id number] 01/27/23 11:17 01/27/23 11:05 Wound Center Nurse 1 #2- L GROIN -Current Size (cm) - Length 8.1 -Current Size (cm) - Width 1.2 -Current Size (cm) - Depth 0.2 -Total Square Cm 9.72 -Exudate Amt None Present -Wound Margin Distinct, Outline Attached -Granulation Amt Large (67-100%) -Granulation Quality Red -Texture (Gladys-wound Skin Appearance) Assessed, Scarring -Moisture (Gladys-wound Skin Appearance) Assessed -Color (Gladys-wound Skin Appearance) Assessed, Erythema -Temperature (Gladys-wound Skin No Abnormality Appearance) (Pt Warm) -Ulcer Cleansing Soap and Water -Foul Odor after Cleansing No -Anesthetic Used 5% Lidocaine Gel Lower Limb Edema Present NA WC - Nurse 2 - General Ulcer CM Notes Start: 01/27/23 11:05 Freq: Status: Active Protocol: Activity Type Activity Date Activity User E-sign Co-sign Detail Recorded Client Recorded Date Recorded By Document 01/27/23 11:37 [id number] 01/27/23 11:41 01/27/23 11:37 Wound Center Nurse 2 #2- L GROIN -Time 11:37 -Correct Patient Yes -Correct Side, Site, Position Yes -Correct Procedure Yes -Procedure Performed Yes -Type of Procedure Debridement -Clinical Debridement Subcutaneous -Tissue Removed Subcutaneous -Post Debridement (cm) - Length 7.8 -Post Debridement (cm) - Width 1.3 -Post Debridement (cm) - Depth 0.2 -Total Square (Post) (cm) 10.14 -Area of Debridement (cm) - Length 7.8 -Area of Debridement (cm) - Width 1.3 -Total Square (Area) (cm) 10.14 -Tunneling No -Undermining/Tunneling No -Circular Undermining No -Wound/Ulcer Outcome Not Healed -Ulcer Cleansing Rinsed/ Irrigated with Saline -Foul Odor after Cleansing No -Bioengineered Tissue No -Bleeding Controlled with Pressure -Treatment Response Procedure Tolerated Well -Offloading No -Debridement - Subq, 1st 20sq cm Yes Pain Scale: 0-10 Numeric Is Patient Pain Free? Yes - Nurse 3 - General Ulcer D/C NN Start: 01/27/23 11:05 Freq: Status: Active Protocol: Activity Type Activity Date Activity User E-sign Co-sign Detail Recorded Client Recorded Date Recorded By Document 01/27/23 11:57 DL [id number] 01/27/23 11:58 DL 01/27/23 11:57 Wound Care Center Nurse 3 #2- L GROIN -Ulcer Cleansing Soap and Water -Foul Odor after Cleansing No -Other Dressing dakins -Primary Dressing Covered/Secured with Dry Gauze, Secured with Tape Treatment Response Procedure Tolerated Well Pain Scale: 0-10 Numeric Is Patient Pain Free? Yes WC - Visit Discharge Discharge Condition Stable Ambulatory Status Ambulatory Transportation Private Auto Facility Type Home Health Orders Sent Yes Assessment/Plan Assessment/Plan (1) Open wound of vulva: CODE(S): S31.40XA - Unspecified open wound of vagina and vulva, initial encounter (2) Non-healing open wound of left groin: CODE(S): S31.104A - Unspecified open wound of abdominal wall, left lower quadrant without penetration into peritoneal cavity, initial encounter (3) Hidradenitis: CODE(S): L73.2 - Hidradenitis suppurativa (4) Vulval hidradenitis suppurativa: CODE(S): L73.2 - Hidradenitis suppurativa (5) Other acute postprocedural pain: CODE(S): G89.18 - Other acute postprocedural pain (6) Smoker: CODE(S): F17.200 - Nicotine dependence, unspecified, uncomplicated PLAN: Plan Patient evaluated at the wound healing center. Wound care - Dakins 0.25% moistened gauze topped with ABD daily and as needed. Operative wound culture positive for Staphylococcus lugdunensis. She is being treated with Doxycycline. Tolerating Gabapentin well with decrease in the burning pain. Follow up one week. Instructed her to call if she develops any concerns.
[2023-02-03 10:29] VITALS: BP 151/78; PULSE 100; RESP 20; TEMP 36; BMI 33.5
--- NOTE | 2023-02-03 11:15 | PCM.WC.PN ---
History of Present Illness Date of Service: 02/03/23 Chief Complaint: Surgical wound of left inguinal area and left vulval hidradentitis History of Wound: 57 year old female with a history of hidradenitis. She states she mostly gets flare ups in her left inguinal area and left vulval area extending from genitocrural crease to the labia. When she gets a flare up, she develops increasing redness and pain and swelling and occasional drainage. At present she denies fever. She denies trauma. She had a flare up of hidradenitis involving her right inguinal area and right vulval area that required surgery on 03/14/19 where she underwent surgical preparation right inguinal area with excision hidradenitis (50 cm2) and excision right vulval hidradenitis involving genitocrural area with partial vulvectomy including deep subcutaneous tissue (50 cm2). The wounds were left open and healed using wound care and antibiotics on 04/24/19. Surgery on 12/23/22 for surgical preparation left inguinal area with excision hidradenitis (combined 82.5 cm2) and surgical preparation left vulval area extending from genitocrural crease up to the labia with excision hidradenitis and radical partial vulvectomy including deep subcutaneous tissue (combined 82.5 cm2). Operative culture was positive for Staphylococcus lugdunensis, she is being treated with Doxycycline. Progress of Wound: Left inguinal and vulval wound is beefy pink and is much smaller in size. No signs of bleeding. Objective Data Objective Data Vital Signs: Vital Signs Temp Pulse Resp BP O2 Del Method 96.8 F L 100 20 H 151/78 H Room Air 02/03/23 10:02/03/23 10:02/03/23 10:02/03/23 10:01/27/23 11:05 Oxygen Delivery Method Room Air Weight: 195 lb Body Mass Index (BMI) 33.5 Charges/Coding Procedures Integumentary 111xxx-113xx: 24765 Global Visit Debridement Note Debridement Note Wound debrided: inguinal area/left vulval extending from genitocrural crease up to labia Laterality: Left Wound Grade/Stage: Stage IV Type of Debridement: Excisional debridement Anesthesia Used: 5% Lidocaine Gel Depth: Down to and including healthy tissue and in the subcutaneous layer Percentage of wound debrided: 100 Instrument Used: 5mm curette Tissue Removed: Non viable tissue and slough Severity: Fat Layer Exposed Amount of bleeding with debridement: Mild Bleeding Controlled with: Pressure and Compression and gauze Patient tolerated procedure: Patient tolerated procedure well Post-Debridement Measurements and Additional Note: Post-Debridement Measurements/Treatment - Nurse 1 - General Ulcer Assessment Start: 01/27/23 11:05 Freq: Status: Active Protocol: [email or web address].WILLIAN Activity Type Activity Date Activity User E-sign Co-sign Detail Recorded Client Recorded Date Recorded By Document 01/27/23 11:05 KW [id number] 01/27/23 11:17 KW Document 02/03/23 10:29 DL [id number] 02/03/23 10:34 DL 01/27/23 02/03/23 11:05 10:29 WC - Today's Visit Information Type of service Follow-up Visit Follow-up Visit (Physician/OFFSET PRESSMAN (Physician/OFFSET PRESSMAN ) ) Arrival Mode Ambulatory,Cane Ambulatory,Cane Transfer Assistance None Accompanied by Patient Identification Verified (Name & Yes Yes ) Patient Requires Transmission-Based No Precautions Height and Weight Body Mass Index (BMI) 33.5 33.5 BMI Classification Obese Obese Vital Signs Temperature (97.8 F-99.1 F) 96.8 F L 96.8 F L Temperature Source Temporal Temporal Pulse Rate (60-100) 73 100 Pulse Location Monitor Monitor Respiratory Rate (12-18) 16 20 H Respiratory rate source Observation Observation Oxygen Delivery Method Room Air Blood Pressure (90/60-120/80) 111/82 H 151/78 H Blood Pressure Mean (mm Hg) 91 102 Source Monitor Monitor Position Sitting Blood Pressure Location Left Arm History Since Last Visit- (Skip if this is Patient's initial visit) Have you changed medications since your No No last visit? Any new allergies or adverse reactions No No Had a fall/change in ADL's that may No No increase risk of falls Signs or symptoms of abuse and/or No No neglect since last visit Have you been in the hospital since your No No last visit? Has dressing in place as prescribed Yes Yes Has compression in place as prescribed N/A N/A Has offloadiing in place as prescribed N/A N/A Experienced any changes in pain level or No No management Left Footwear Regular Shoe Right Footwear Regular Shoe Pain Scale: 0-10 Numeric Is Patient Pain Free? Yes Yes WC - Nurse 1 - General Ulcer Measurement Start: 01/27/23 11:05 Freq: Status: Active Protocol: Activity Type Activity Date Activity User E-sign Co-sign Detail Recorded Client Recorded Date Recorded By Document 01/27/23 11:05 KW [id number] 01/27/23 11:17 KW Document 02/03/23 10:29 DL [id number] 02/03/23 10:34 DL 01/27/23 02/03/23 11:05 10:29 Wound Center Nurse 1 #2- L GROIN -Current Size (cm) - Length 8.1 6.2 -Current Size (cm) - Width 1.2 0.9 -Current Size (cm) - Depth 0.2 0.2 -Total Square Cm 9.72 5.58 -Exudate Amt None Present Medium -Exudate Type Serosanguineous -Wound Margin Distinct, Distinct, Outline Outline Attached Attached -Granulation Amt Large (67-100%) Large (67-100%) -Granulation Quality Red Red -Necrosis Amt Small (1-33%) -Necrotic Tissue Type Adherent Slough -Structure Exposed N/A -Texture (Gladys-wound Skin Appearance) Assessed, Scarring Scarring -Moisture (Gladys-wound Skin Appearance) Assessed No Abnormality -Color (Gladys-wound Skin Appearance) Assessed, No Abnormality Erythema -Temperature (Gladys-wound Skin No Abnormality No Abnormality Appearance) (Pt Warm) (Pt Warm) -Tenderness on Palpation (Gladys-wound No Skin Appearance) -Ulcer Cleansing Soap and Water Soap and Water -Foul Odor after Cleansing No No -Anesthetic Used 5% Lidocaine 5% Lidocaine Gel Gel Lower Limb Edema Present NA WC - Nurse 2 - General Ulcer CM Notes Start: 01/27/23 11:05 Freq: Status: Active Protocol: Activity Type Activity Date Activity User E-sign Co-sign Detail Recorded Client Recorded Date Recorded By Document 01/27/23 11:37 [id number] 01/27/23 11:41 JF Document 02/03/23 10:51 [id number] 02/03/23 10:53 JF 01/27/23 02/03/23 11:37 10:51 Wound Center Nurse 2 #2- L GROIN -Time 11:37 10:51 -Correct Patient Yes Yes -Correct Side, Site, Position Yes Yes -Correct Procedure Yes Yes -Procedure Performed Yes Yes -Type of Procedure Debridement Debridement -Clinical Debridement Subcutaneous Subcutaneous -Tissue Removed Subcutaneous Subcutaneous -Post Debridement (cm) - Length 7.8 6.5 -Post Debridement (cm) - Width 1.3 1.2 -Post Debridement (cm) - Depth 0.2 0.1 -Total Square (Post) (cm) 10.14 7.80 -Area of Debridement (cm) - Length 7.8 6.5 -Area of Debridement (cm) - Width 1.3 1.2 -Total Square (Area) (cm) 10.14 7.80 -Tunneling No No -Undermining/Tunneling No No -Circular Undermining No No -Wound/Ulcer Outcome Not Healed Not Healed -Ulcer Cleansing Rinsed/ Rinsed/ Irrigated with Irrigated with Saline Saline -Foul Odor after Cleansing No No -Bioengineered Tissue No No -Bleeding Controlled with Pressure Pressure -Treatment Response Procedure Procedure Tolerated Well Tolerated Well -Offloading No No -Debridement - Subq, 1st 20sq cm Yes Yes Pain Scale: 0-10 Numeric Is Patient Pain Free? Yes Yes - Nurse 3 - General Ulcer D/C NN Start: 01/27/23 11:05 Freq: Status: Active Protocol: Activity Type Activity Date Activity User E-sign Co-sign Detail Recorded Client Recorded Date Recorded By Document 01/27/23 11:57 DL [id number] 01/27/23 11:58 DL 01/27/23 11:57 Wound Care Center Nurse 3 #2- L GROIN -Ulcer Cleansing Soap and Water -Foul Odor after Cleansing No -Other Dressing dakins -Primary Dressing Covered/Secured with Dry Gauze, Secured with Tape Treatment Response Procedure Tolerated Well Pain Scale: 0-10 Numeric Is Patient Pain Free? Yes - Visit Discharge Discharge Condition Stable Ambulatory Status Ambulatory Transportation Private Auto Facility Type Home Health Orders Sent Yes Assessment/Plan Assessment/Plan (1) Open wound of vulva: CODE(S): S31.40XA - Unspecified open wound of vagina and vulva, initial encounter (2) Non-healing open wound of left groin: CODE(S): S31.104A - Unspecified open wound of abdominal wall, left lower quadrant without penetration into peritoneal cavity, initial encounter (3) Hidradenitis: CODE(S): L73.2 - Hidradenitis suppurativa (4) Vulval hidradenitis suppurativa: CODE(S): L73.2 - Hidradenitis suppurativa (5) Other acute postprocedural pain: CODE(S): G89.18 - Other acute postprocedural pain (6) Smoker: CODE(S): F17.200 - Nicotine dependence, unspecified, uncomplicated PLAN: Plan Patient evaluated at the wound healing center. Wound care - STop Dakins 0.25% moistened gauze and start Aquacel-Ag (or silver alginate) topped with ABD or gauze daily and as needed. Operative wound culture positive for Staphylococcus lugdunensis. She completed Doxycycline. Tolerating Gabapentin well with decrease in the burning pain. Follow up two weeks. Instructed her to call if she develops any concerns.
[2023-02-17 10:51] VITALS: BP 134/91; PULSE 72; RESP 18; BMI 33.5
--- NOTE | 2023-02-17 11:17 | PCM.WC.PN ---
History of Present Illness Date of Service: 02/17/23 Chief Complaint: Surgical wound of left inguinal area and left vulval hidradentitis History of Wound: 57 year old female with a history of hidradenitis. She states she mostly gets flare ups in her left inguinal area and left vulval area extending from genitocrural crease to the labia. When she gets a flare up, she develops increasing redness and pain and swelling and occasional drainage. At present she denies fever. She denies trauma. She had a flare up of hidradenitis involving her right inguinal area and right vulval area that required surgery on 03/14/19 where she underwent surgical preparation right inguinal area with excision hidradenitis (50 cm2) and excision right vulval hidradenitis involving genitocrural area with partial vulvectomy including deep subcutaneous tissue (50 cm2). The wounds were left open and healed using wound care and antibiotics on 04/24/19. Surgery on 12/23/22 for surgical preparation left inguinal area with excision hidradenitis (combined 82.5 cm2) and surgical preparation left vulval area extending from genitocrural crease up to the labia with excision hidradenitis and radical partial vulvectomy including deep subcutaneous tissue (combined 82.5 cm2). Operative culture was positive for Staphylococcus lugdunensis, she is being treated with Doxycycline. Progress of Wound: Left inguinal and vulval ulcer is much smaller in size. She has a new hidradenitis bump medial to the healing ulcer. It is small, tender to palpation, not draining and mildly erythematous. Objective Data Objective Data Vital Signs: Vital Signs Temp Pulse Resp BP O2 Del Method 96.8 F L 72 18 134/91 H Room Air 02/03/23 10:29 02/17/23 10:51 02/17/23 10:51 02/17/23 10:51 02/17/23 10:51 Oxygen Delivery Method Room Air Weight: 195 lb Body Mass Index (BMI) 33.5 Charges/Coding Procedures Integumentary 111xxx-113xx: 50539 Global Visit Debridement Note Debridement Note Wound debrided: inguinal area/left vulval extending from genitocrural crease up to labia Laterality: Left Wound Grade/Stage: Stage IV Type of Debridement: Excisional debridement Anesthesia Used: 5% Lidocaine Gel Depth: Down to and including healthy tissue and in the subcutaneous layer Percentage of wound debrided: 100 Instrument Used: 3mm curette Tissue Removed: Non viable tissue and slough Severity: Fat Layer Exposed Amount of bleeding with debridement: Mild Bleeding Controlled with: Pressure and Compression and gauze Patient tolerated procedure: Patient tolerated procedure well Post-Debridement Measurements and Additional Note: Post-Debridement Measurements/Treatment - Nurse 1 - General Ulcer Assessment Start: 01/27/23 11:05 Freq: Status: Active Protocol: SALEEM Activity Type Activity Date Activity User E-sign Co-sign Detail Recorded Client Recorded Date Recorded By Document 01/27/23 11:05 KW [id number] 01/27/23 11:17 KW Document 02/03/23 10:29 DL [id number] 02/03/23 10:34 DL Document 02/17/23 10:51 KW Desktop 02/17/23 11:03 KW 01/27/23 02/03/23 02/17/23 11:05 10:29 10:51 - Today's Visit Information Type of service Follow-up Visit Follow-up Visit Follow-up Visit (Physician/CLINIC CHARGE NURSE (Physician/CLINIC CHARGE NURSE (Physician/CLINIC CHARGE NURSE ) ) ) Arrival Mode Ambulatory,Cane Ambulatory,Cane Ambulatory,Cane Transfer Assistance None Accompanied by Patient Identification Verified (Name & Yes Yes ) Patient Requires Transmission-Based No Precautions Height and Weight Body Mass Index (BMI) 33.5 33.5 33.5 BMI Classification Obese Obese Obese Vital Signs Temperature (97.8 F-99.1 F) 96.8 F L 96.8 F L Temperature Source Temporal Temporal Pulse Rate (60-100) 73 100 72 Pulse Location Monitor Monitor Monitor Respiratory Rate (12-18) 16 20 H 18 Respiratory rate source Observation Observation Ausculation Oxygen Delivery Method Room Air Room Air Blood Pressure (90/60-120/80) 111/82 H 151/78 H 134/91 H Blood Pressure Mean (mm Hg) 91 102 105 Source Monitor Monitor Monitor Position Sitting Semi-Fowlers Blood Pressure Location Left Arm Left Forearm History Since Last Visit- (Skip if this is Patient's initial visit) Have you changed medications since your No No No last visit? Any new allergies or adverse reactions No No No Had a fall/change in ADL's that may No No No increase risk of falls Signs or symptoms of abuse and/or No No No neglect since last visit Have you been in the hospital since your No No No last visit? Has dressing in place as prescribed Yes Yes Yes Has compression in place as prescribed N/A N/A N/A Has offloadiing in place as prescribed N/A N/A N/A Experienced any changes in pain level or No No No management Left Footwear Regular Shoe Regular Shoe Right Footwear Regular Shoe Regular Shoe Pain Scale: 0-10 Numeric Is Patient Pain Free? Yes Yes Yes WC - Nurse 1 - General Ulcer Measurement Start: 01/27/23 11:05 Freq: Status: Active Protocol: Activity Type Activity Date Activity User E-sign Co-sign Detail Recorded Client Recorded Date Recorded By Document 01/27/23 11:05 KW [id number] 01/27/23 11:17 KW Document 02/03/23 10:29 DL [id number] 02/03/23 10:34 DL Document 02/17/23 10:51 KW Desktop 02/17/23 11:03 KW 01/27/23 02/03/23 02/17/23 11:05 10:29 10:51 Wound Center Nurse 1 #2- L GROIN -Current Size (cm) - Length 8.1 6.2 1.6 -Current Size (cm) - Width 1.2 0.9 0.3 -Current Size (cm) - Depth 0.2 0.2 0.1 -Total Square Cm 9.72 5.58 0.48 -Date of Last Picture (Recall this 02/17/23 field) -Photo Taken Yes -Exudate Amt None Present Medium Small -Exudate Type Serosanguineous Serous -Wound Margin Distinct, Distinct, Distinct, Outline Outline Outline Attached Attached Attached -Granulation Amt Large (67-100%) Large (67-100%) Large (67-100%) -Granulation Quality Red Red Red -Necrosis Amt Small (1-33%) -Necrotic Tissue Type Adherent Slough -Structure Exposed N/A -Texture (Gladys-wound Skin Appearance) Assessed, Scarring Assessed, Scarring Scarring -Moisture (Gladys-wound Skin Appearance) Assessed No Abnormality Assessed -Color (Gladys-wound Skin Appearance) Assessed, No Abnormality Assessed, Erythema Erythema -Temperature (Gladys-wound Skin No Abnormality No Abnormality No Abnormality Appearance) (Pt Warm) (Pt Warm) (Pt Warm) -Tenderness on Palpation (Gladys-wound No Skin Appearance) -Ulcer Cleansing Soap and Water Soap and Water Rinsed/ Irrigated with Saline -Foul Odor after Cleansing No No -Anesthetic Used 5% Lidocaine 5% Lidocaine 5% Lidocaine Gel Gel Gel Lower Limb Edema Present NA WC - Nurse 2 - General Ulcer CM Notes Start: 01/27/23 11:05 Freq: Status: Active Protocol: Activity Type Activity Date Activity User E-sign Co-sign Detail Recorded Client Recorded Date Recorded By Document 01/27/23 11:37 [id number] 01/27/23 11:41 Document 02/03/23 10:51 [id number] 02/03/23 10:53 Document 02/17/23 11:07 Desktop 02/17/23 11:09 01/27/23 02/03/23 02/17/23 11:37 10:51 11:07 Wound Center Nurse 2 #2- L GROIN -Time 11:37 10:51 11:08 -Correct Patient Yes Yes Yes -Correct Side, Site, Position Yes Yes Yes -Correct Procedure Yes Yes Yes -Procedure Performed Yes Yes Yes -Type of Procedure Debridement Debridement Debridement -Clinical Debridement Subcutaneous Subcutaneous Subcutaneous -Tissue Removed Subcutaneous Subcutaneous Subcutaneous -Post Debridement (cm) - Length 7.8 6.5 1.5 -Post Debridement (cm) - Width 1.3 1.2 0.5 -Post Debridement (cm) - Depth 0.2 0.1 0.1 -Total Square (Post) (cm) 10.14 7.80 0.75 -Area of Debridement (cm) - Length 7.8 6.5 1.5 -Area of Debridement (cm) - Width 1.3 1.2 0.5 -Total Square (Area) (cm) 10.14 7.80 0.75 -Tunneling No No No -Undermining/Tunneling No No No -Circular Undermining No No No -Wound/Ulcer Outcome Not Healed Not Healed Not Healed -Ulcer Cleansing Rinsed/ Rinsed/ Rinsed/ Irrigated with Irrigated with Irrigated with Saline Saline Saline -Foul Odor after Cleansing No No No -Bioengineered Tissue No No No -Bleeding Controlled with Pressure Pressure Pressure -Treatment Response Procedure Procedure Procedure Tolerated Well Tolerated Well Tolerated Well -Offloading No No No -Debridement - Subq, 1st 20sq cm Yes Yes Yes Pain Scale: 0-10 Numeric Is Patient Pain Free? Yes Yes Yes - Nurse 3 - General Ulcer D/C NN Start: 01/27/23 11:05 Freq: Status: Active Protocol: Activity Type Activity Date Activity User E-sign Co-sign Detail Recorded Client Recorded Date Recorded By Document 01/27/23 11:57 DL [id number] 01/27/23 11:58 DL Document 02/17/23 11:09 JF Desktop 02/17/23 11:09 JF 01/27/23 02/17/23 11:57 11:09 Wound Care Center Nurse 3 #2- L GROIN -Ulcer Cleansing Soap and Water Rinsed/ Irrigated with Saline -Foul Odor after Cleansing No No -Primary Dressing Applied Aquacel AG 2x2 -Other Dressing dakins -Primary Dressing Covered/Secured with Dry Gauze, Dry Gauze, Secured with Secured with Tape Tape -Aquacel AG 2x2 1 Treatment Response Procedure Tolerated Well Pain Scale: 0-10 Numeric Is Patient Pain Free? Yes Yes WC - Visit Discharge Discharge Condition Stable Stable Ambulatory Status Ambulatory Ambulatory Transportation Private Auto Private Auto Medication Reconcilliation completed & Yes provided to patient/care provider Clinical Summary of Care Provided Yes Facility Type Home Health Orders Sent Yes Assessment/Plan Assessment/Plan (1) Ulcer of left groin with fat layer exposed: CODE(S): L98.492 - Non-pressure chronic ulcer of skin of other sites with fat layer exposed (2) Hidradenitis: CODE(S): L73.2 - Hidradenitis suppurativa (3) Vulval hidradenitis suppurativa: CODE(S): L73.2 - Hidradenitis suppurativa (4) Other acute postprocedural pain: CODE(S): G89.18 - Other acute postprocedural pain (5) Smoker: CODE(S): F17.200 - Nicotine dependence, unspecified, uncomplicated PLAN: Plan Patient evaluated at the wound healing center. Wound care - Moistened Aquacel-Ag (or silver alginate) topped with ABD or gauze daily and as needed. For her new hidradenitis bump medial to her ulcer, apply warm compresses to help get it to drain. Instructed her to call if her symptoms worsen, will consider starting her on Doxycycline if this worsens. Operative wound culture positive for Staphylococcus lugdunensis. She completed Doxycycline. Decreased Gabapentin to once per day. Follow up two weeks. Instructed her to call if she develops any concerns.
== END 2023-02-20 23:59 | disposition home or self-care (01) ==
LOC: WC 10:45
PROVIDERS: PCP Family Medicine; Referring Provider Surgery; Visit Provider Nurse Practitioner Family
DX: L98.492 Non-pressure chronic ulcer of skin of other sites with fat layer exposed (principal); S31.40XA Unspecified open wound of vagina and vulva, initial encounter; S31.104A Unspecified open wound of abdominal wall, left lower quadrant without penetration into peritoneal cavity, initial encounter; L73.2 Hidradenitis suppurativa; G89.18 Other acute postprocedural pain; F17.200 Nicotine dependence, unspecified, uncomplicated; Z79.899 Other long term (current) drug therapy
CPT/HCPCS: 11042

== ENCOUNTER 2023-03-03 10:24 | Outpatient (RCR) | payer MEDICAID, SELFPAY ==
[2023-02-21 00:38] VITALS: BP 134/91; PULSE 72; RESP 18; TEMP 36; BMI 33.5
[2023-03-03 10:25] VITALS: BP 133/75; PULSE 77; RESP 18; TEMP 36.2; BMI 33.5
--- NOTE | 2023-03-03 11:41 | PN.PCM_ITS ---
History of Present Illness Date of Service: 03/03/23 Chief Complaint: Surgical wound of left inguinal area and left vulval hidr adentitis History of Wound: 57 year old female with a history of hidradenitis. She states she mostly gets flare ups in her left inguinal area and left vulval area extending from genitocrural crease to the labia. When she gets a flare up, she develops increasing redness and pain and swelling and occasional drainage. At present she denies fever. She denies trauma. She had a flare up of hidradenitis involving her right inguinal area and right vulval area that required surgery on 03/14/19 where she underwent surgical preparation right inguinal area with excision hidradenitis (50 cm2) and excision right vulval hidradenitis involving genitocrural area with partial vulvectomy including deep subcutaneous tissue (50 cm2). The wounds were left open and healed using wound care and antibiotics on 04/24/19. Surgery on 12/23/22 for surgical preparation left inguinal area with excision hidradenitis (combined 82.5 cm2) and surgical preparation left vulval area extending from genitocrural crease up to the labia with excision hidradenitis and radical partial vulvectomy including deep subcutaneous tissue (combined 82.5 cm2). Operative culture was positive for Staphylococcus lugdunensis, she is being treated with Doxycycline. Progress of Wound: Left inguinal and vulval ulcer is healed today. Her new hidradenitis bump medial to the healing ulcer is not inflamed today and there is no drainage. Objective Data Objective Data Vital Signs: Vital Signs Temp Pulse Resp BP O2 Del Method 97.1 F L 77 18 133/75 H Room Air 03/03/23 10:25 03/03/23 10:25 03/03/23 10:25 03/03/23 10:25 03/03/23 10:25 Oxygen Delivery Method Room Air Weight: 195 lb Body Mass Index (BMI) 33.5 Charges/Coding Procedures Integumentary 111xxx-113xx: 37000 Global Visit Physical Exam Const alert and oriented x3 General Appearance: other uncomfortable due to the amount of pain she is experiencing HEENT normocephalic Eyes General Eye: normal appearance of both eyes Neck full ROM Resp normal respiratory effort and normal air movement Effort and Inspection: able to speak in complete sentences Cardio regular rate GI soft to palpation and non-tender Narrative: Dalton catheter in place, urine is clear. Back/Spine Back/Spine Narrative: Decreased ROM from previous back issues. Extremity full ROM and normal capillary refill Skin Wound Narrative: Left inguinal/vulval ulcer is healed. Neuro oriented x3 Psych thought process normal Debridement Note Debridement Note No debridement was completed: No debridement was completed today Post-Debridement Measurements and Additional Note: Post-Debridement Measurements/Treatment WC - Nurse 1 - General Ulcer Assessment Start: 03/03/23 10:25 Freq: Status: Active Protocol: SALEEM Activity Type Activity Date Activity User E-sign Co-sign Detail Recorded Client Recorded Date Recorded By Document 03/03/23 10:25 KW [employer] 03/03/23 10:30 KW 03/03/23 10:25 WC - Today's Visit Information Type of service Follow-up Visit (Physician/SPIN TABLE OPERATOR ) Arrival Mode Ambulatory,Cane Accompanied by Patient Identification Verified (Name & Yes ) Height and Weight Body Mass Index (BMI) 33.5 BMI Classification Obese Vital Signs Temperature (97.8 F-99.1 F) 97.1 F L Temperature Source Temporal Pulse Rate (60-100) 77 Pulse Location Monitor Respiratory Rate (12-18) 18 Respiratory rate source Observation Oxygen Delivery Method Room Air Blood Pressure (90/60-120/80) 133/75 H Blood Pressure Mean (mm Hg) 94 Source Monitor Position Sitting Blood Pressure Location Left Arm History Since Last Visit- (Skip if this is Patient's initial visit) Have you changed medications since your No last visit? Any new allergies or adverse reactions No Had a fall/change in ADL's that may No increase risk of falls Signs or symptoms of abuse and/or No neglect since last visit Have you been in the hospital since your No last visit? Has dressing in place as prescribed Yes Has compression in place as prescribed N/A Has offloadiing in place as prescribed N/A Experienced any changes in pain level or No management Left Footwear Regular Shoe Right Footwear Regular Shoe Pain Scale: 0-10 Numeric Is Patient Pain Free? Yes SHOBHA - Nurse 1 - General Ulcer Measurement Start: 03/03/23 10:25 Freq: Status: Active Protocol: Activity Type Activity Date Activity User E-sign Co-sign Detail Recorded Client Recorded Date Recorded By Document 03/03/23 10:25 KW Desktop 03/03/23 10:30 KW 03/03/23 10:25 Wound Center Nurse 1 #2- L GROIN -Current Size (cm) - Length 0 -Current Size (cm) - Width 0 -Current Size (cm) - Depth 0 -Total Square Cm 0 -Wound Comment(s) healed - Nurse 2 - General Ulcer CM Notes Start: 03/03/23 10:25 Freq: Status: Active Protocol: Activity Type Activity Date Activity User E-sign Co-sign Detail Recorded Client Recorded Date Recorded By Document 03/03/23 10:47 Laptop 03/03/23 10:49 03/03/23 10:47 Wound Center Nurse 2 -Correct Patient No -Correct Side, Site, Position No -Correct Procedure No -Procedure Performed No -Post Debridement (cm) - Length 0 -Post Debridement (cm) - Width 0 -Post Debridement (cm) - Depth 0 -Total Square (Post) (cm) 0 -Area of Debridement (cm) - Length 0 -Area of Debridement (cm) - Width 0 -Total Square (Area) (cm) 0 -Wound/Ulcer Outcome Healed- Epithelialized Pain Scale: 0-10 Numeric Is Patient Pain Free? Yes - Nurse 3 - General Ulcer D/C NN Start: 03/03/23 10:25 Freq: Status: Active Protocol: Activity Type Activity Date Activity User E-sign Co-sign Detail Recorded Client Recorded Date Recorded By Document 03/03/23 10:49 [id number] 03/03/23 10:49 03/03/23 10:49 Is Patient Pain Free? Yes - Visit Discharge Discharge Condition Stable Ambulatory Status Ambulatory Transportation Private Auto Medication Reconcilliation completed & Yes provided to patient/care provider Clinical Summary of Care Provided Yes Assessment/Plan Assessment/Plan (1) Ulcer of left groin with fat layer exposed: CODE(S): L98.492 - Non-pressure chronic ulcer of skin of other sites with fat layer exposed (2) Hidradenitis: CODE(S): L73.2 - Hidradenitis suppurativa (3) Vulval hidradenitis suppurativa: CODE(S): L73.2 - Hidradenitis suppurativa (4) Other acute postprocedural pain: CODE(S): G89.18 - Other acute postprocedural pain (5) Smoker: CODE(S): F17.200 - Nicotine dependence, unspecified, uncomplicated PLAN: Plan Patient evaluated at the wound healing center. Massage the healed scar a couple times daily to help soften the scarring. May use lotion to prevent drying of the healed scar tissue. If the new area of hidradenitis flares, she is to use warm compresses to help it drain. Today there is no erythema, swelling or drainage present. Operative wound culture positive for Staphylococcus lugdunensis. She completed Doxycycline. Follow up as needed.
== END 2023-03-04 15:24 | disposition home or self-care (01) ==
LOC: WC 10:24
PROVIDERS: PCP Family Medicine; Referring Provider Surgery; Visit Provider Nurse Practitioner Family
DX: L73.2 Hidradenitis suppurativa (principal); Z79.899 Other long term (current) drug therapy; F17.200 Nicotine dependence, unspecified, uncomplicated
CPT/HCPCS: 99213; G0463

== ENCOUNTER → 2023-06-30 | Outpatient (CLI) | payer MEDICAID, SELFPAY ==
--- NOTE | 2023-06-30 09:28 | RAD_ITS ---
STUDY: X-RAY - ABDOMEN/PELVIS REASON FOR EXAM: Female, 57 years old. Renal stones. TECHNIQUE: Single AP view of the abdomen / pelvis on 2 images. COMPARISON: 07/06/2022 FINDINGS: Normal visualized lung bases. Normal bowel gas pattern with air seen to the rectosigmoid. No disproportionate dilatation of bowel. Moderate to marked amount of feces in the colon overlying the renal shadows. 2 small 2 mm in diameter calcifications projected over the lower pole of the right kidney. The visualized liver, spleen and kidneys are grossly normal in size and morphology. Clips in the left upper quadrant, unchanged from prior study. Normal visualized osseous structures. RAD/Abdomen Single View IMPRESSION: Right nephrocalcinosis. No acute finding. Electronically Signed: Wily Lee MD at 10:37 EST ,
== END | disposition home or self-care (01) ==
LOC: MTRAD 09:27
PROVIDERS: PCP Family Medicine; Referring Provider Urology; Visit Provider Urology
DX: N20.0 Calculus of kidney (principal)
CPT/HCPCS: 74018

== ENCOUNTER → 2024-06-28 | Outpatient (CLI) | payer MEDICAID, SELFPAY ==
--- NOTE | 2024-06-28 09:56 | RAD_ITS ---
EXAM: XR Abdomen, 1 View CLINICAL INDICATION: TECHNIQUE: Frontal supine view of the abdomen/pelvis. COMPARISON: No relevant prior studies available. FINDINGS: GASTROINTESTINAL TRACT: Fecal retention in the colon consistent with constipation. No dilation. BONES/JOINTS: Unremarkable. No acute fracture. OTHER FINDINGS: Oval opacity over the lower mid abdomen, likely external to the patient. Clinical correlation is recommended. RAD/Abdomen Single View IMPRESSION: 1. Fecal retention in the colon consistent with constipation. 2. Oval opacity over the lower mid abdomen, likely external to the patient. C linical correlation is recommended. Reading [facility]
== END | disposition home or self-care (01) ==
LOC: MTRAD 09:54
PROVIDERS: PCP Family Medicine; Referring Provider Urology; Visit Provider Urology
DX: N20.0 Calculus of kidney (principal)
CPT/HCPCS: 74018

== ENCOUNTER 2024-07-27 08:33 | Day surgery (SDC) | payer MEDICAID, SELFPAY ==
--- NOTE | 2024-07-14 16:15 | PAT.ANESEVAL ---
Pre-Assessment Diagnosis/Proposed Procedure Planned Operative Procedure(s): RIGHT RENAL ESWL Anesthesia History Anesthesia History - supervisor home restoration service: Anesthesia History - supervisor home restoration service Hx Hospitalization No 07/14/24 12:37 Any Problems With Anesthesia No 07/14/24 12:37 Cholinesterase deficiency No 07/14/24 12:37 You/Your Family Experience No 07/14/24 12:37 fever (hyperthermia) with Relationship Recent Exposure to Contagious No 12/23/22 06:24 Disease Does patient have nerve No 07/14/24 12:37 stimulator Patient instructed to have device shut off --Does patient have Pacemaker or ICD? When Was Last Pacemaker Check QUESTION #4 FULL TEXT: You/Your Family Experience fever (hyperthermia) with Anesthesia Last Oral Intake Last Oral intake: Last Oral Intake NPO since Meds taken in AM with sips of water? Meds patient instructed to take am of surgery PONV PONV - supervisor home restoration service: PONV - supervisor home restoration service Female Yes 07/14/24 12:37 HX of Motion Sickness No 07/14/24 12:37 HX of N/V After Surgery Yes 07/14/24 12:37 Non-Smoker No 07/14/24 12:37 Duration of Surgery greater No 07/14/24 12:37 than 60 minutes Number of Risk Factors 2 07/14/24 12:37 PONV Score Moderate Risk 07/14/24 12:37 Height & Weight Height & Weight: Anesthesia: Height & Weight Height 5 ft 4 in 04/06/23 13:59 Respiratory Assessment Respiratory Assessment - supervisor home restoration service: Respiratory Tract Infection Hx - supervisor home restoration service Hx Respiratory Tract Infection No 07/14/24 12:37 STOP Sleep Apnea STOP Sleep Apnea - supervisor home restoration service: STOP Sleep Apnea - supervisor home restoration service Hx Hypertension No 07/14/24 12:37 Hx Sleep Apnea No 07/14/24 12:37 CPAP No 12/23/22 11:59 BIPAP Yes: not using because she 12/23/22 11:59 needs a mask Do you snore loudly (louder No 07/14/24 12:37 than talking or can be heard Do you often feel tired/ No 07/14/24 12:37 fatigued/ sleepy during daytime? Has anyone observed you stop No 07/14/24 12:37 breathing during sleep? STOP Results Negative 07/14/24 12:37 QUESTION #5 FULL TEXT : Do you snore loudly (louder than talking or can be heard through closed doors)? Tobacco Use History Tobacco Use History - supervisor home restoration service: Tobacco Use History - supervisor home restoration service Tobacco Use Smoking Status Light Smoker (<10/day) 07/14/24 12:37 Hx Tobacco Use Yes 07/14/24 12:37 Years Smoking Packs Smoked per Day Smoking Cessation Date was within the last 15 years Hx Smoking Cessation Date Hx Smoking Cessation Counseling Hematologic Medial History Hematologic Hx - supervisor home restoration service: Hematologic Medical Hx - documentation spec Hx of Blood Transfusion No 07/14/24 12:37 Hx of Transfusion in last 3 No 07/14/24 12:37 Months Date of Last Transfusion (if within last 3 months) Ever experience any problems No 07/14/24 12:37 with transfusion(s)? Specify any problems Hx of Preganancy in last 3 No 07/14/24 12:37 Months Nurse Filling Out Transfusion [facility] 07/14/24 12:37 & Questions: Date: 07/14/24 07/14/24 12:37 Time: 12:48 07/14/24 12:37 Patient unable to answer at this time (ie. confused, unrespo /Reproduction History /Reproductive History - supervisor home restoration service: /Reproductive Hx- supervisor home restoration service Hx Now No 07/14/24 12:37 Gestational Age (in weeks): EDC: Hx Hx Para Hx Section SAB No 12/16/22 08:24 [facility] Medical History (Updated 07/14/24 @ 12:47 by Juanita Deutsch) Anxiety History of renal disease Dietary restriction Gastric reflux Family history of breast cancer Intertrigo Left shoulder pain Right shoulder pain Chronic thoracic back pain Chronic cervical pain Macromastia Non-healing open wound of left groin At high risk for falls History of echocardiogram Right renal stone Ureteral calculus, right Difficult intravenous access History of urethral cyst Tinnitus of both ears Loss of hearing Wears glasses Wears dentures History of steroid therapy Intracranial hypertension Essential tremor Gait instability Ambulates with cane Bladder disease Low iron DDD (degenerative disc disease) Migraine headache Injury of head and neck Syncope History of hiatal hernia History of diverticulitis Smoker BiPAP (biphasic positive airway pressure) dependence History of stress test Cardiology follow-up encounter History of rheumatic fever Hx of hidradenitis suppurativa Open wound of vulva Non-healing open wound of right groin Smoker Hidradenitis Vulval hidradenitis suppurativa GERD (gastroesophageal reflux disease) Polycystic ovary Pancreatitis Osteoarthritis Neuropathy Hypoglycemia High cholesterol High blood pressure Anxiety and depression Carpal tunnel syndrome Arthritis Home Medications ?Medication ?Instructions ?Recorded ?Last Taken ?Type atorvastatin 10 mg tablet 10 mg PO QHS 01/10/19 Unknown History dexlansoprazole 60 mg 60 mg PO QHS 01/10/19 Unknown History capsule,biphase delayed release (Dexilant) hydrocodone 7.5 mg-acetaminophen 1 tab PO Q6H 01/10/19 12/23/22 History 325 mg tablet (Furlong) potassium citrate 15 mEq (1,620 15 meq PO TID 08/28/22 Unknown History mg) tablet,extended release bupropion HCl 150 mg 24 hr tablet, 150 mg PO QAM 11/16/22 07/12/24 History extended release glucose 4 g PO PRN PRN hypoglycemia 11/16/22 Unknown History hydroxyzine HCl 25 mg tablet 25 mg PO BID PRN anxiety 11/16/22 Unknown History quetiapine 50 mg tablet (Seroquel) 100 mg PO QHS 12/16/22 Unknown History doxycycline hyclate 100 mg capsule 100 mg PO Q24H 07/14/24 Unknown History magnesium chloride 71.5 mg 71.5 mg PO DAILY 07/14/24 Unknown History (magnesium chloride) tablet,delayed release (Slow-Mag) vit no.95-ferrous 1 tab PO DAILY 07/14/24 Unknown History fumarate 28 mg-folic acid 800 mcg tablet () Allergy/AdvReac Type Severity Reaction Status Date / Time duloxetine (From Cymbalta) Allergy ALLERGY Verified 07/14/24 12:29 Iodinated Contrast Media Allergy ALLERGY Verified 07/14/24 12:29 pregabalin (From Lyrica) Allergy ALLERGY Verified 07/14/24 12:29 ibuprofen AdvReac UNABLE TO Verified 07/14/24 12:29 TAKE AFTER GASTRIC BYPASS SURGERY morphine AdvReac Chest Verified 07/14/24 12:29 tightness Family History Son Alcoholism Psychiatric care Mother Anemia Anxiety Arthritis Cancer Depression Hypertension High cholesterol Skin cancer (melanoma) CVA (cerebral vascular accident) Thyroid disorder Suicide attempt Sister defect Cancer Hormone Problems Kidney disease Skin cancer (melanoma) Thyroid disorder Father Cancer Colon cancer Surgical History (Updated 07/14/24 @ 12:47 by Juanita Deutsch) Hx of cystoscopy History of esophagogastroduodenoscopy (EGD) Hx of colonoscopy History of tonsillectomy and adenoidectomy Hx of lymph node biopsy Hx of abdominal surgery Hx of exploratory laparotomy Hx of total hysterectomy History of cardiac catheterization Hx of brain surgery History of delivery History of laparoscopic cholecystectomy History of shoulder surgery H/O cataract removal with insertion of prosthetic lens Gastric bypass status for obesity History of neck surgery History of back surgery Social History Smoking Status: Light Smoker (<10/day) alcohol intake: never substance use type: does not use additional social history: DOES NOT USE ASPIRIN DOES NOT USE IBUPROFEN Audit: Pertinent Findings Pertinent Findings EKG Perinent findings: Unremarkable Echo (EF%) pertinent findings: Grossly unremarkable Recommendation Anesthesia Recommendation Anesthesia recommendation: OPTIMIZED for anesthesia (Optimized for the procedure)
[2024-07-20 12:25] LABS: Hematocrit 44.5 % (37-47); Hemoglobin 14.5 g/dL (12.0-15.0); Mean Corp Hgb Conc 32.6 g/dL (32-36); Mean Corpuscular Hgb 29.7 pg (27.0-32.0); Mean Platelet Vol. 10.4 fl (6.2-12.0); Platelet Count 234 K/mm3 (150-450); RBC Distribution Width CV 12.2 % (11.6-14.6); RBC Distribution Width SD 40.8 fl (35.1-43.9); Red Blood Count 4.89 M/mm3 (4.2-5.4); White Blood Count 6.4 K/mm3 (4.4-11.0)
[2024-07-27] VITALS (7 sets, daily range): BP systolic 110–124; BP diastolic 68–74; PULSE 64–78; RESP 16; TEMP 36.2–36.8; O2SAT 96–98; BMI 36.5
--- NOTE | 2024-07-27 10:11 | PCM.PRE.AN2 ---
ASA Classification* ASA Classification ASA Classification: 3 Assessment & Plan Anesthesia* Anesthesia Assessment Anesthesia Assessment: Discussed sedation and/or anesthesia options, risks, benefits, and alternatives with patient/parents/legal guardian/POA. Questions invited. The patient/parents/legal guardian/POA seems to understand and agrees to proceed with anesthesia plan. Reviewed the physical assessment, medical history, allergy history and patient home medications list prior to surgery/procedure/anesthetic and documented any changes. Performed airway and anesthesia risk assessments. Anesthesia Type Anesthesia Type: General History Source History Obtained from:: Patient and Chart Anesthesia Focused Assessment* Temperature: 97.2 F Pulse Rate: 65 Blood Pressure: 110/71 Respiratory Rate: 16 Pulse Ox: 98 Oxygen Delivery Method: Room Air Vital signs additional comments: Sugar is reading 93 on her germaine monitor. Airway Assessment Mouth opens: >3 cm Mallampati Score: I Teeth Condition: Dentures (Patient has upper dentures. They will be coming out prior to the OR.) and Missing (Patient is edentulous on bottom) Neck Range of motion (ROM): Limited ROM (Decreased extension secondary to cervical fusion.) Focused Labs Anesthesia Preop lab: CBC WBC 6.4 K/mm3 (4.4-11.0) 07/20/24 11:12 07/20/24 RBC 4.89 M/mm3 (4.2-5.4) 07/20/24 11:12 07/20/24 Hgb 14.5 g/dL (12.0-15.0) 07/20/24 11:12 07/20/24 Hct 44.5 % (37-47) 07/20/24 11:12 07/20/24 Plt Count 234 K/mm3 (150-450) 07/20/24 11:12 07/20/24 CHEMISTRY Potassium 4.6 mmol/L (3.5-5.1) 12/24/22 05:36 12/24/22 Sodium 139 mmol/L (136-145) 12/24/22 05:36 12/24/22 BUN 18 mg/dL (7-18) 12/24/22 05:36 12/24/22 Creatinine 0.91 mg/dL (0.55-1.02) 12/24/22 05:36 12/24/22 Glucose 99 mg/dL (74-106) 12/24/22 05:36 12/24/22 POC Glucose 85 mg/dL (70-110) 03/14/19 11:06 03/14/19 COAG Pre-Assessment Diagnosis/Proposed Procedure Planned Operative Procedure(s): RIGHT RENAL ESWL Anesthesia History Anesthesia History - senior project coordinator: Anesthesia History - senior project coordinator Hx Hospitalization No 07/14/24 12:37 Any Problems With Anesthesia No 07/14/24 12:37 Cholinesterase deficiency No 07/14/24 12:37 You/Your Family Experience No 07/14/24 12:37 fever (hyperthermia) with Relationship Recent Exposure to Contagious No 07/27/24 09:39 Disease Does patient have nerve No 07/14/24 12:37 stimulator Patient instructed to have device shut off --Does patient have Pacemaker No 07/27/24 09:39 or ICD? When Was Last Pacemaker Check QUESTION #4 FULL TEXT: You/Your Family Experience fever (hyperthermia) with Anesthesia Last Oral Intake Last Oral intake: Last Oral Intake NPO since 07:00 07/27/24 09:39 Meds taken in AM with sips of Yes 07/27/24 09:39 water? Meds patient instructed to see chart 07/27/24 09:39 take am of surgery Any additional information?: Yes NPO since: 07:00 (Patient meds with sip of water at 7 AM) Meds taken in AM with sips of water?: Yes PONV PONV - senior project coordinator: PONV - senior project coordinator Female Yes 07/14/24 12:37 HX of Motion Sickness No 07/14/24 12:37 HX of N/V After Surgery Yes 07/14/24 12:37 Non-Smoker No 07/14/24 12:37 Duration of Surgery greater No 07/14/24 12:37 than 60 minutes Number of Risk Factors 2 07/14/24 12:37 PONV Score Moderate Risk 07/14/24 12:37 Height & Weight Height & Weight: Anesthesia: Height & Weight Height 5 ft 4.5 in 07/27/24 09:39 Weight: 97.976 kg 07/27/24 09:39 Body Mass Index (BMI) 36.5 07/27/24 09:39 Respiratory Assessment Respiratory Assessment - senior project coordinator: Respiratory Tract Infection Hx - senior project coordinator Hx Respiratory Tract Infection No 07/14/24 12:37 STOP Sleep Apnea STOP Sleep Apnea - senior project coordinator: STOP Sleep Apnea - senior project coordinator Hx Hypertension No 07/14/24 12:37 Hx Sleep Apnea No 07/14/24 12:37 CPAP No 12/23/22 11:59 BIPAP Yes: not using because she 12/23/22 11:59 needs a mask Do you snore loudly (louder No 07/14/24 12:37 than talking or can be heard Do you often feel tired/ No 07/14/24 12:37 fatigued/ sleepy during daytime? Has anyone observed you stop No 07/14/24 12:37 breathing during sleep? STOP Results Negative 07/14/24 12:37 QUESTION #5 FULL TEXT : Do you snore loudly (louder than talking or can be heard through closed doors)? Tobacco Use History Tobacco Use History - senior project coordinator: Tobacco Use History - senior project coordinator Tobacco Use Smoking Status Light Smoker (<10/day) 07/14/24 12:37 Hx Tobacco Use Yes 07/14/24 12:37 Years Smoking Packs Smoked per Day Smoking Cessation Date was within the last 15 years Hx Smoking Cessation Date Hx Smoking Cessation Counseling Any additional information?: Yes Smoking Status: Current every day smoker (Patient did not smoke today.) Hematologic Medial History Hematologic Hx - senior project coordinator: Hematologic Medical Hx - law firm receptionist Hx of Blood Transfusion No 07/14/24 12:37 Hx of Transfusion in last 3 No 07/14/24 12:37 Months Date of Last Transfusion (if within last 3 months) Ever experience any problems No 07/14/24 12:37 with transfusion(s)? Specify any problems Hx of Preganancy in last 3 No 07/14/24 12:37 Months Nurse Filling Out Transfusion [facility] 07/14/24 12:37 & Questions: Date: 07/14/24 07/14/24 12:37 Time: 12:48 07/14/24 12:37 Patient unable to answer at this time (ie. confused, unrespo /Reproduction History /Reproductive History - senior project coordinator: /Reproductive Hx- senior project coordinator Hx Now No 07/14/24 12:37 Gestational Age (in weeks): EDC: Hx Hx Para Hx Section SAB No 12/16/22 08:24 Active Medications Active Medications: Current Medications Generic Name Dose Route Start Last Admin Trade Name Freq PRN Reason Stop Dose Admin Cefazolin Sodium 2 gm/ N/A 20 mls @ 400 mls/hr 07/27/24 11:00 IV 07/27/24 11:02 PREOP ONE Sodium Chloride 1,000 mls @ 15 mls/hr 07/27/24 08:55 IV 08/01/24 22:14 .[facility] Protocol PFSH Medical History Anxiety History of renal disease Dietary restriction Gastric reflux Family history of breast cancer Intertrigo Left shoulder pain Right shoulder pain Chronic thoracic back pain Chronic cervical pain Macromastia Non-healing open wound of left groin At high risk for falls History of echocardiogram Right renal stone Ureteral calculus, right Difficult intravenous access History of urethral cyst Tinnitus of both ears Loss of hearing Wears glasses Wears dentures History of steroid therapy Intracranial hypertension Essential tremor Gait instability Ambulates with cane Bladder disease Low iron DDD (degenerative disc disease) Migraine headache Injury of head and neck Syncope History of hiatal hernia History of diverticulitis Smoker BiPAP (biphasic positive airway pressure) dependence History of stress test Cardiology follow-up encounter History of rheumatic fever Hx of hidradenitis suppurativa Open wound of vulva Non-healing open wound of right groin Smoker Hidradenitis Vulval hidradenitis suppurativa GERD (gastroesophageal reflux disease) Polycystic ovary Pancreatitis Osteoarthritis Neuropathy Hypoglycemia High cholesterol High blood pressure Anxiety and depression Carpal tunnel syndrome Arthritis Home Medications ?Medication ?Instructions ?Recorded ?Last Taken ?Type atorvastatin 10 mg tablet 10 mg PO QHS 01/10/19 07/26/24 History dexlansoprazole 60 mg 60 mg PO QHS 01/10/19 07/26/24 History capsule,biphase delayed release (Dexilant) hydrocodone 7.5 mg-acetaminophen 1 tab PO Q6H 01/10/19 07/27/24 History 325 mg tablet (Josephine) potassium citrate 15 mEq (1,620 15 meq PO TID 08/28/22 07/26/24 History mg) tablet,extended release bupropion HCl 150 mg 24 hr tablet, 150 mg PO QAM 11/16/22 07/20/24 History extended release glucose 4 g PO PRN PRN hypoglycemia 11/16/22 07/26/24 History hydroxyzine HCl 25 mg tablet 25 mg PO BID PRN anxiety 11/16/22 07/20/24 History quetiapine 50 mg tablet (Seroquel) 100 mg PO QHS 12/16/22 07/26/24 History doxycycline hyclate 100 mg capsule 100 mg PO Q24H 07/14/24 07/26/24 History magnesium chloride 71.5 mg 71.5 mg PO DAILY 07/14/24 07/26/24 History (magnesium chloride) tablet,delayed release (Slow-Mag) vit no.95-ferrous 1 tab PO DAILY 07/14/24 07/26/24 History fumarate 28 mg-folic acid 800 mcg tablet () brexpiprazole 1 mg tablet (Rexulti) 1 mg PO DAILY 07/27/24 07/20/24 History cholecalciferol (vitamin D3) 50 PO DAILY PRN suppplement 07/27/24 07/26/24 History mcg (2,000 unit) tablet diclofenac sodium 1 % topical gel topical PRN pain 07/27/24 Unknown History famotidine 20 mg tablet 20 mg PO DAILY PRN 07/27/24 Unknown History melatonin 10 mg capsule 10 mg PO QHS PRN PRN sleep 07/27/24 Unknown History methocarbamol 750 mg tablet 750 mg PO 3XD PRN muscle relaxer 07/27/24 07/20/24 History Allergy/AdvReac Type Severity Reaction Status Date / Time duloxetine (From Cymbalta) Allergy ALLERGY Verified 07/27/24 09:28 Iodinated Contrast Media Allergy ALLERGY Verified 07/27/24 09:28 pregabalin (From Lyrica) Allergy ALLERGY Verified 07/27/24 09:28 ibuprofen AdvReac UNABLE TO Verified 07/27/24 09:28 TAKE AFTER GASTRIC BYPASS SURGERY morphine AdvReac Chest Verified 07/27/24 09:28 tightness Family History Son Alcoholism Psychiatric care Mother Anemia Anxiety Arthritis Cancer Depression Hypertension High cholesterol Skin cancer (melanoma) CVA (cerebral vascular accident) Thyroid disorder Suicide attempt Sister defect Cancer Hormone Problems Kidney disease Skin cancer (melanoma) Thyroid disorder Father Cancer Colon cancer Surgical History Hx of cystoscopy History of esophagogastroduodenoscopy (EGD) Hx of colonoscopy History of tonsillectomy and adenoidectomy Hx of lymph node biopsy Hx of abdominal surgery Hx of exploratory laparotomy Hx of total hysterectomy History of cardiac catheterization Hx of brain surgery History of delivery History of laparoscopic cholecystectomy History of shoulder surgery H/O cataract removal with insertion of prosthetic lens Gastric bypass status for obesity History of neck surgery History of back surgery Social History Smoking Status: Light Smoker (<10/day) alcohol intake: never substance use type: does not use additional social history: DOES NOT USE ASPIRIN DOES NOT USE IBUPROFEN Review of Systems (Anesthesia) ROS Narrative System reviewed and no additional complaints, except as documented.
[2024-07-27] MEDS: 0.9% Normal Saline (1000mL) 1,000 ML 15 ML IV (10:14)
[2024-07-27] MEDS: Cefazolin 2 GM in Syringe IV (11:17)
--- NOTE | 2024-07-27 11:39 | DCINST_ITS ---
Discharge Instructions Diet Discharge Diet: No restrictions Activity Discharge Activity: Return to Normal Activity Dressing / Incision Call your doctor if you observe: Fever of 101 or Higher, Inability to urinate and Inability to have a bowel movement Follow Up Care Please Follow Up With: Clover Tejada MD When: 2 to 3 weeks in the office with a KUB Test Results: Test results from this visit will be discussed in further detail at your follow- up appointment, if applicable. Discharge Plan Admission Attending Provider: Clover Tejada Primary Care Provider: Anthony Pollard Instructions Print Language: Romanian Discharge Orders/Prescriptions Prescriptions: New ondansetron HCl 8 mg tablet 8 mg PO Q8H PRN PRN (Reason: Nausea) 7 Days Qty: 20 0RF tramadol 50 mg tablet 50 mg PO Q8H PRN (Reason: pain) 3 Days Qty: 10 0RF Continued Dexilant 60 mg capsule,biphase delayed releas 60 mg PO QHS hydrocodone-acetaminophen [[place]] 7.5-325 mg tablet 1 tab PO Q6H atorvastatin 10 mg tablet 10 mg PO QHS hydroxyzine HCl 25 mg tablet 25 mg PO BID PRN (Reason: anxiety) bupropion HCl 150 mg tablet extended release 24 hr 150 mg PO QAM glucose Tablet,Chewable 4 g PO PRN PRN (Reason: hypoglycemia) Rx Instructions: may repeat once after 15 minutes if no response potassium citrate 15 mEq Tablet Extended Release 15 meq PO TID quetiapine [Seroquel] 50 mg tablet 100 mg PO QHS Patient Comments: 50-100mg Slow-Mag 71.5 mg tablet,delayed release (DR/EC) 71.5 mg PO DAILY PNV cmb#95-ferrous fumarate-FA [] 28 mg iron- 800 mcg tablet 1 tab PO DAILY doxycycline hyclate 100 mg capsule 100 mg PO Q24H cholecalciferol (vitamin D3) 50 mcg (2,000 unit) tablet PO DAILY PRN (Reason: suppplement) Patient Comments: [NO ORIGINAL SIG] famotidine 20 mg tablet 20 mg PO DAILY PRN methocarbamol 750 mg tablet 750 mg PO 3XD PRN (Reason: muscle relaxer) diclofenac sodium 1 % gel topical PRN (Reason: pain) melatonin 10 mg capsule 10 mg PO QHS PRN PRN (Reason: sleep) Rexulti 1 mg tablet 1 mg PO DAILY Referrals / Follow Up: Anthony Pollard MD [Primary Care Provider] - Disposition Disposition (needs filled in before D/C Order can be placed): Home, Self Care
--- NOTE | 2024-07-27 11:42 | OP.PCM_ITS ---
Operative Report (Standard) Operative Information Date of Procedure: 07/27/24 Pre-Operative Diagnosis: Right renal stones Post-Operative Diagnosis: Same Surgery/Procedure Performed: Right renal extracorporeal shockwave lithotripsy pump erector helper: No Type of Anesthesia: General RN Documented Start/Stop Times: Operation Date: 07/27/24 11:00 Case Time Into Pre-Op 07/27/24 08:50 Out of Pre-Op 07/27/24 11:09 Anesthesia Start 07/27/24 11:13 Into Room 07/27/24 11:13 Procedure Start 07/27/24 11:35 Procedure End 07/27/24 12:10 Anesthesia End 07/27/24 12:17 Out of Room 07/27/24 12:17 Into Recovery 07/27/24 12:20 Procedure Start Time: 11:35 Procedure Stop Time: 12:10 Select all DRAINS/GRAFTS/IMPLANTS that apply: None Estimated Blood Loss: <5cc Specimen collected: No Description of surgery: The patient is a 58-year-old female with right renal stones who presents for shockwave lithotripsy. Informed consent was obtained. She was taken to the operating room and placed on the operating room table. Anesthesia monitored the head, neck, airway, IV access and vital signs throughout the case. Once anesthesia was appropriately administered she was positioned with the lithotripter and the stones were easily visualized. 3000 shocks were applied and the stones appeared to be well fragmented at the conclusion of the case. She was awakened and taken to the recovery room in good condition. There were no complications during this procedure. Surgical Findings: 3000 shocks were applied to right lower pole stones, appear to be well fragmented at the conclusion Complications Complications: No Admit VTE Documentation VTE Present on Admission: Yes VTE Mechan Device Prophylaxis: SCD's VTE Pharm Prophylaxis ordered?: No Reason prophylaxis not ordered: Treatment Not Indicated
--- NOTE | 2024-07-27 12:24 | PCM.POST.ANE ---
Anesthesia: Postop Eval I Current Vital Signs Temperature: 97.9 F Pulse Rate: 78 Blood Pressure: 124/73 Respiratory Rate: 16 Pulse Ox: 96 Oxygen Delivery Method: Room Air Assessment Airway patent: Yes Spontaneous unlabored respirations: Yes Mental status: Awake and Calm nausea: No Vomiting: No Anesthesia Complication: No Fluid Hydration Crystalloid volume administer (ml): 600 Total IV fluid infused: 600 Progress Note Anesthesia document: Postop Eval 1 completed: Yes
[2024-07-27 12:49] LABS: Bedside Glucose 141 mg/dL (74-106)
[2024-07-27] MEDS: Ketorolac 15 MG/ML Vial IV (13:23)
--- NOTE | 2024-07-27 18:26 | POSTOPAN2_ITS ---
Anesthesia Postop Eval I Sum Postop Eval Completion status Anesthesia document: Postop Eval 1 completed: Yes Anesthesia Postop Eval I Summary Anesthesia Postop Eval I Summary: Anesthesia Postop Eval I: Assessment Summary Airway patent Yes 07/27/24 12:25 FIELD SERVICES DIRECTOR.[email or web address] Spontaneous unlabored Yes 07/27/24 12:25 FIELD SERVICES DIRECTOR.WESTON respirations Mental status Awake,Calm 07/27/24 12:25 FIELD SERVICES DIRECTOR.SKOBY nausea No 07/27/24 12:25 FIELD SERVICES DIRECTOR.SKOBY Vomiting No 07/27/24 12:25 FIELD SERVICES DIRECTOR.SKOBY Anesthesia Postop Eval I: Fluid Summary Crystalloid volume administer 600 07/27/24 12:25 FIELD SERVICES DIRECTOR.SKOBY (ml) Colloids volume administered ( ml) Blood Product volume administered (ml) Total IV fluid infused 600 07/27/24 12:25 FIELD SERVICES DIRECTOR.JAYNEOBAngy Anesthesia Postop Eval I: Summary Notes Anesthesia Complication No 07/27/24 12:25 FIELD SERVICES DIRECTOR.WESTON Anesthesia Complication Comment: Post-operative progress note Anesthesia: Postop Eval II Evaluation Mental status: Awake and Calm Pain Level: 1 nausea: No Vomiting: No Complications Anesthesia Complication: No
--- NOTE | 2024-07-27 18:26 | PCM.POSTANE2 ---
Anesthesia Postop Eval I Sum Postop Eval Completion status Anesthesia document: Postop Eval 1 completed: Yes Anesthesia Postop Eval I Summary Anesthesia Postop Eval I Summary: Anesthesia Postop Eval I: Assessment Summary Airway patent Yes 07/27/24 12:25 [email or web address] [email or web address] Spontaneous unlabored Yes 07/27/24 12:25 DRY CLEANING [email or web address] respirations Mental status Awake,Calm 07/27/24 12:25 DRY CLEANING [email or web address] nausea No 07/27/24 12:25 DRY CLEANING [email or web address] Vomiting No 07/27/24 12:25 DRY CLEANING [email or web address] Anesthesia Postop Eval I: Fluid Summary Crystalloid volume administer 600 07/27/24 12:25 DRY CLEANING [email or web address] (ml) Colloids volume administered ( ml) Blood Product volume administered (ml) Total IV fluid infused 600 07/27/24 12:25 DRY CLEANING [email or web address] Anesthesia Postop Eval I: Summary Notes Anesthesia Complication No 07/27/24 12:25 DRY CLEANING [email or web address] Anesthesia Complication Comment: Post-operative progress note Anesthesia: Postop Eval II Evaluation Mental status: Awake and Calm Pain Level: 1 nausea: No Vomiting: No Complications Anesthesia Complication: No
== END 2024-07-27 14:25 | disposition home or self-care (01) ==
LOC: SDC 08:34 → AC 08:35
PROVIDERS: PCP Family Medicine; Referring Provider Urology; Visit Provider Urology
PROC: (CPT 50590; principal; 2024-07-27 10:50)
DX: N20.0 Calculus of kidney (principal); N39.3 Stress incontinence (female) (male); N39.44 Nocturnal enuresis; E78.00 Pure hypercholesterolemia, unspecified; F17.200 Nicotine dependence, unspecified, uncomplicated; Z79.899 Other long term (current) drug therapy
CPT/HCPCS: 50590; 36415; 82962; 85027; J2405

== ENCOUNTER → 2024-08-11 | Outpatient (CLI) | payer MEDICAID, SELFPAY ==
--- NOTE | 2024-08-11 12:35 | RAD_ITS ---
PROCEDURE: ABDOMEN SINGLE VIEW 08/11/2024 REASON FOR EXAM: KUB- KIDNEY STONE TECHNIQUE: Single AP view abdomen was obtained. FINDINGS: No visible bowel dilatation. Previously seen RIGHT renal calculi no longer confidently visualized. Few presumed pelvic phleboliths are grossly similar. Few surgical clips. L5-S1 operative changes. Suspect demineralization. RAD/Abdomen Single View IMPRESSION: 1. Previously seen small RIGHT renal calculi are no longer confidently visualiz ed. Few presumed pelvic phleboliths are grossly similar. If there is persistent concern, recommend CT. 2. Additional description as above. Reading Location: [id number]
== END | disposition home or self-care (01) ==
LOC: MTRAD 12:34
PROVIDERS: PCP Family Medicine; Referring Provider Urology; Visit Provider Urology
DX: N20.0 Calculus of kidney (principal)
CPT/HCPCS: 74018

== ENCOUNTER → 2024-09-07 | Outpatient (CLI) | payer MEDICAID, SELFPAY ==
--- NOTE | 2024-09-07 10:29 | CT_ITS ---
PROCEDURE: ABDOMEN/PELVIS WITHOUT CONT 09/07/2024 REASON FOR EXAM: R KIDNEY STONE Prior lithotripsy 3 weeks ago. TECHNIQUE: Abdomen and pelvis CT without intravenous contrast. Noncontrast technique limits evaluation of the abdominal and pelvic viscera. Coronal and Sagittal reconstruction series were provided. One or more dose reduction techniques were used (e.g., Automated exposure control, adjustment of the mA and/or kV according to patient size, use of iterative reconstruction technique). PATIENT PREPARATION: Per protocol ORAL CONTRAST TYPE: None. CT dL volume: 13.06. DLP: 704.8 COMPARISON: Prior abdominal radiograph dated August 11, 2024. FINDINGS: Lung bases: Unremarkable. Coronary artery calcification. Liver: Normal size. No obvious mass. Gallbladder: Surgically absent. Spleen: Normal size. Pancreas: Normal size. No surrounding inflammation. Adrenals: Unremarkable Kidneys: There are 2 tiny adjacent nonobstructive right intrarenal calculi in the lower pole. Bladder: Unremarkable Reproductive Organs: Prior hysterectomy. Adnexal regions are unremarkable. Bowel: Patient is status post subtotal gastrectomy. Sigmoid diverticulosis without evidence of diverticulitis. Surgical anastomosis in the jejunal loops in the midabdomen. Appendix: The appendix is not identified. There is no inflammatory process identified in the right lower quadrant to suggest appendicitis. Lymph nodes: Unremarkable. Vasculature: Mild diffuse atherosclerotic calcifications are noted. Peritoneum / Retroperitoneum: Bones: Degenerative changes of the spine. CT/Abdomen/Pelvis without Cont IMPRESSION: Tiny nonobstructive right intrarenal calculi. Status post cholecystectomy. Sigmoid diverticulosis without evidence of diverticulitis. Reading Location: [place] [id number]
== END | disposition home or self-care (01) ==
LOC: CT 10:25
PROVIDERS: PCP Family Medicine; Referring Provider Urology; Visit Provider Urology
DX: N20.0 Calculus of kidney (principal)
CPT/HCPCS: 74176